=== PATIENT | male | born 1955 | race Caucasian/White ===

== ENCOUNTER 2018-12-20 20:51 | Outpatient (CLI) | payer BC | END 2018-12-20 20:52 | disposition critical access hospital (66) | LOC: EMS 20:51 | PROVIDERS: ATTEND Surgery | DX: S00.03XA Contusion of scalp, initial encounter (principal); S00.83XA Contusion of other part of head, initial encounter; W10.9XXA Fall (on) (from) unspecified stairs and steps, initial encounter; Y92.009 Unspecified place in unspecified non-institutional (private) residence as the place of occurrence of the external cause | CPT/HCPCS: A0425; A0429 ==

== ENCOUNTER 2018-12-20 21:05 | Emergency (ER) | payer BC ==
--- NOTE | 2018-12-20 22:17 | ED Physician Documentation ---
History of Present Illness - Stated complaint Stated Complaint: FALL DOWN STAIRS - Chief complaint Chief Complaint: General - History obtained from History obtained from: Patient - History of Present Illness Timing: Prior to arrival - Additonal information Additional information: Patient is a 63-year-old male with history of alcohol use presenting after accidental fall down approximately 3 stairs just prior to arrival. Patient admits to having multiple shots of liquor today, but denies recreational drugs. Patient reports history of borderline diabetes, but states that he does not take any oral medications regularly. Patient states that he actually tripped on the stairs and landed face first striking the front of his head, as well as the back Left side of his head and left arm resulting in multiple skin tears. Patient does not believe he lost consciousness and family confirms. Patient reports pain to the contusion of the left head only. He denies other headache, vision changes, epistaxis, intraoral trauma, neck pain, back pain, rib pain, chest pain, abdominal pain, or extremity pain. Patient denies other areas of bruising, abrasions, lacerations. Prior to this, patient was at his normal state of health without complaint. Tetanus unknown. No other improving or worsening factors to symptoms noted. Review of Systems Eyes: denies: Loss of vision Skin: reports: Abrasion (s), Laceration (s) PD PAST MEDICAL HISTORY - Past Medical History Past Medical History: Yes Cardiovascular: None Respiratory: None Neuro: None Endocrine/Autoimmune: None GI: None : None HEENT: None Psych: None Musculoskeletal: None Derm: None - Past Surgical History Past Surgical History: Yes Ortho: Other - Allergies Allergies/Adverse Reactions: Allergies Allergy/AdvReac Type Severity Reaction Status Date / Time No Known Drug Allergies Allergy Verified 12/20/18 21:13 - Social History Does the pt smoke?: No Smoking Status: Never smoker Does the pt drink ETOH?: Yes ETOH Use: Liquor Does the pt have substance abuse?: No - Immunizations Immunizations are current?: No Immunizations: TDAP >10years/unknown PD ED PE NORMAL - General General: Alert and oriented X 3, No acute distress, Well developed/nourished, Other (Smells of alcohol) - HEENT HEENT: PERRL (Gross visual acuity intact without nystagmus.), EOMI. No: Atraumatic (Approximately 4 inch x 4 inch area of erythema and abrasion to midline forehead extending into scalp and not involving periorbital space.Nearly tennis ball sized contusion without overlying skin abrasion or laceration to left occiput.No other facial bone tenderness or instability noted. No raccoon eyes, periorbital swelling or ecchymosis. No epistaxis or evidence of intraoral trauma.) - Neck Neck: No bony TTP - Cardiac Cardiac: RRR, No murmur - Respiratory Respiratory: No respiratory distress, Clear bilaterally - Abdomen Abdomen: Normal bowel sounds, Soft, Non tender, Non distended - Back Back: No spinal TTP - Derm Derm: Normal color, Warm and dry, No rash, Other (Skin changes as stated above, including several small punctate skin cares to dorsum of left forearm with no damage to underlying structures, no signs of infection, or other complication.) - Neuro Neuro: Alert and oriented X 3, No motor deficit, No sensory deficit - Psych Psych: Normal mood, Normal affect Results - Vitals Vitals: Vital Signs - 24 hr 12/20/18 21:10 Temperature 36.5 C Heart Rate 113 H Respiratory 20 Rate Blood Pressure 163/95 H O2 Saturation 96 Oxygen O2 Source Room air - EKG (time done) 2324 Rate: Rate (enter#) (102) Rhythm: Sinus tachycardia Intervals: Prolonged QT Other comments: Other comments (Multiple PVCs) - Labs Labs: Laboratory Tests 12/20/18 23:24 WBC 7.8 RBC 3.96 L Hgb 14.4 Hct 41.6 L MCV 105.1 H MCH 36.3 H MCHC 34.5 RDW 13.7 Plt Count 125 L MPV 6.8 L Neut # (Auto) 5.9 Lymph # (Auto) 1.4 L [place] # (Auto) 0.4 Eos # (Auto) 0.0 Baso # (Auto) 0.0 Absolute Nucleated RBC 0.00 Nucleated RBC % 0.0 PD MEDICAL DECISION MAKING - ED course Complexity details: reviewed results, re-evaluated patient, considered differential, d/w patient, d/w family, d/w senior solutions consultant ED course: Patient presenting after mechanical fall down several stairs and have significant concerns for possible head and cervical spine injury from this fall. Patient admits to chronic, heavy alcohol use. Patient reports minimal oral intake today, but multiple shots of vodka with last shot being approximately at 7 PM just before his fall. Patient has no complaints at this time. Do not find evidence that would indicate thoracic or lumbar spine injury, as well as have low suspicion for spinal cord injury. Additionally, have low suspicion for chest or abdominal trauma including rib fractures, as well as other extremity in juries.No evidence of facial trauma to indicate facial fracture except for abrasion overlying upper midline forehead extending into scalp.Patient is comfortable and does not require IV fluids or medications at this time. Patient still smells of alcohol and feel this could be contributing to his pain tolerance.Patient has multiple abrasions and skin tears which will not require repair, but tenderness updated.CT imaging of head and C-spine performed. C- spine imaging returned unremarkable, but CT of head found an acute 1.3 cm left- sided parietal subdural hematoma, as well as a small subarachnoid bleed of the frontal lobe and a small subdural bleed of the parietal lobe. No midline shift. Given these findings, felt appropriate to obtain a second IV, as well as lab work including coagulation studies and troponin, and EKG. Urinalysis and drug screening also obtained. Patient received Keppra and banana bag. Patient and family notified of results and recommendations and all are agreeable to transfer.[facility] contacted and ER physician excepting. Patient to transport by air. - Critical Care Time(min): 45 Time Includes: Direct patient care, Review records, Reassess patient, Document care, Coordinate care, Medical consult Departure - Departure Disposition: 02 Transfer Acute Care Hosp Clinical Impression: Subdural hematoma Condition: Critical
[2018-12-20] MEDS ORDERED: TETANUS/DIPHTHERIA/PERTUSSIS 0.5 ML SYRINGE IM ONE (22:28)
--- NOTE | 2018-12-20 23:11 | CT Report ---
Reason: fall down stairs, trauma to head Procedure Date: 12/20/2018 Accession Number: [id number] / [id number] Procedure: CT - CERVICAL SPINE WO CPT Code: FULL RESULT: EXAM: CT CERVICAL SPINE WITHOUT CONTRAST. DATE: 12/20/2018 10:53 PM. HISTORY: Head pain, fall down stairs, head trauma. COMPARISONS: None. TECHNIQUE: Thin-section axial images were acquired of the cervical spine without contrast. Post-processing: Coronal and sagittal reformats. Other: None. In accordance with CT protocol optimization, one or more of the following dose reduction techniques were utilized for this exam: automated exposure control, adjustment of mA and/or KV based on patient size, or use of iterative reconstructive technique. FINDINGS: Alignment: Mild levocurvature is noted at C6-C7. No spondylolisthesis. Bones: A lucency is seen at the right C4-C5 facet joint (image 43, series 8) which could represent an age-indeterminate fracture versus fragmentation from underlying facet arthropathy. No other potentially acute cervical spine fracture is seen. Interspace Levels/Facets: C1-C2: Mild degenerative changes are present anteriorly without canal cervical stenosis. C2-C3: Unremarkable. C3-C4: There is mild foraminal narrowing due to disk height loss. The spinal canal and neural foramina are patent. C4-C5: Right-sided facet arthropathy is present without spinal canal or foraminal stenosis. C5-C6: Right-sided facet arthropathy is present without spinal canal or foraminal stenosis. C6-C7: Mild right foraminal narrowing is present due to uncovertebral hypertrophy. The spinal canal and neural foramina are patent. C7-T1: Unremarkable. Musculature: There is mild diffuse fatty atrophy of the posterior paraspinous muscles. Other: The paravertebral and prevertebral soft tissues are unremarkable. The lung apices are clear. IMPRESSION: 1. Potential age-indeterminate fracture of the right C4-C5 facet joint versus fragmentation from underlying facet arthropathy. No accompanying findings to suggest spinal instability. 2. No other acute cervical spine fracture or malalignment. RADIA
--- NOTE | 2018-12-20 23:13 | CT Report ---
Reason: fall down stairs, trauma to head Procedure Date: 12/20/2018 Accession Number: [id number] / [id number] Procedure: CT - HEAD WO CPT Code: FULL RESULT: EXAM: CT HEAD WITHOUT CONTRAST. EXAM DATE: 12/20/2018 10:52 PM. CLINICAL HISTORY: Fall down stairs, trauma to head. COMPARISON: CERVICAL SPINE W/O 12/20/2018 10:42 PM. TECHNIQUE: Multiaxial CT images were obtained from the foramen magnum to the vertex. Reformats: Sagittal and coronal. IV contrast: None. In accordance with CT protocol optimization, one or more of the following dose reduction techniques were utilized for this exam: automated exposure control, adjustment of mA and/or KV based on patient size, or use of iterative reconstructive technique. FINDINGS: Parenchyma: No intraparenchymal hemorrhage. No evidence of mass, midline shift, or CT findings of acute infarction. Roland-white differentiation is distinct. Diffuse chronic microangiopathic white matter changes are evident. Extraaxial Spaces: An acute left parietal subdural hematoma measures up to 1.3 cm. A smaller acute right parietal subdural hematoma measures 2 mm (image 26, series 5). Trace acute right frontal subarachnoid hemorrhage is also noted (image 16, series 5). Ventricles: The ventricles and cortical sulci are mildly enlarged, consistent with age-related tissue loss. There is no midline shift or hydrocephalus. Sinuses and orbits: Imaged paranasal sinuses, orbits, and mastoids show no significant abnormality. Bones: A large left parietal scalp hematoma is present without an underlying calvarial fracture. Other: Trace intracranial atherosclerosis is noted. IMPRESSION: 1. Large left parietal scalp hematoma without calvarial fracture. 2. Evidence of coup injury consisting of a left parietal subdural hematoma measuring 1.3 cm. 3. Evidence of contrecoup injury with small volume right parietal subdural and right frontal subarachnoid hemorrhages. 4. No evidence of midline shift at this time. RADIA The critical result notification system was initiated by Dr. Adriana Cabezas at 11:04 PM on 12/20/2018. The above critical result findings were discussed with Dr. Rain by Dr. Adriana Cabezas at 11:08 PM on 12/20/2018.
[2018-12-20] MEDS ORDERED: levETIRAcetam INJ 1,000 MG in SODIUM CHLORIDE 0.9% 100ML 100 ML IV STA (23:17)
[2018-12-20] MEDS ORDERED: FOLIC ACID INJ 1 MG, THIAMINE INJ 100 MG, MAGNESIUM SULFATE 2 GM, MULTIVITAMIN 10 ML in... IV STA ×5 (23:18)
[2018-12-20] MEDS ORDERED: THIAMINE 100 MG/1 ML 2 ML MDV ONE (23:44)
[2018-12-20 23:50] LABS: BASOPHILS % (AUTO) 0.6 %; EOSINOPHILS % (AUTO) 0.4 %; HGB - HEMOGLOBIN 14.4 g/dL (14.0-18.0); LYMPHOCYTES # (AUTO) 1.4 10^3/uL (1.5-3.5); LYMPHOCYTES % (AUTO) 17.5 %; MEAN CORPUSCULAR HEMOGLOBIN 36.3 pg (27.0-31.0); MEAN CORPUSCULAR HGB CONC 34.5 g/dL (32.0-36.0); MEAN CORPUSCULAR VOLUME 105.1 fL (80.0-94.0); MEAN PLATELET VOLUME 6.8 fL (7.4-11.4); MONOCYTES # (AUTO) 0.4 10^3/uL (0.0-1.0); MONOCYTES % (AUTO) 5.4 %; NEUTROPHILS # (AUTO) 5.9 10^3/uL (1.5-6.6); NEUTROPHILS % (AUTO) 76.1 %; PLT - PLATELET COUNT 125 10^3/uL (130-450); RED BLOOD COUNT 3.96 10^6/uL (4.70-6.10); RED CELL DISTRIBUTION WIDTH 13.7 % (12.0-15.0); WHITE BLOOD COUNT 7.8 x10^3/uL (4.8-10.8)
[2018-12-20 23:52] LABS: INR 1.1 (0.8-1.2); PT - PROTHROMBIN TIME 12.6 secs (9.9-12.6)
[2018-12-20 23:59] LABS: PARTIAL THROMBOPLASTIN TIME 29.6 secs (24.9-33.3)
[2018-12-21] LABS: ACETAMINOPHEN < 10 ug/mL (10-30); ALBUMIN 3.5 g/dL (3.2-5.5); ALBUMIN/GLOBULIN RATIO 0.9 (1.0-2.2); ALKALINE PHOSPHATASE 129 IU/L (42-121); ALT ALANINE AMINOTRANSFERASE 81 IU/L (10-60); AST ASPARTATE AMINOTRANSFERASE 166 IU/L (10-42); BILIRUBIN,TOTAL 1.1 mg/dL (0.2-1.0); BUN - BLOOD UREA NITROGEN 9 mg/dL (6-20); CALCIUM 8.1 mg/dL (8.5-10.3); CARBON DIOXIDE - CO2 23 mmol/L (21-32); CHLORIDE 102 mmol/L (101-111); CREATININE 0.8 mg/dL (0.6-1.2); GFR - MDRD 98 (>89); GLUCOSE 176 mg/dL (70-100); LIPASE 38 U/L (22-51); SALICYLATE < 6.0 mg/dL; SODIUM 140 mmol/L (135-145); TOTAL PROTEIN 7.4 g/dL (6.7-8.2)
[2018-12-21 00:06] VITALS: BP 148/88
[2018-12-21 00:08] LABS: MUDS CUTOFF CONCENTRATIONS CUTOFF CONC BELOW:
[2018-12-21 00:09] LABS: BILIRUBIN,URINE NEGATIVE (NEGATIVE); GLUCOSE, URINE (UA) NEGATIVE (NEGATIVE); KETONES,URINE (UA) 15 mg/dL (NEGATIVE); LEUKOCYTE ESTERASE, URINE NEGATIVE (NEGATIVE); NITRITE,URINE NEGATIVE (NEGATIVE); OCCULT BLOOD,URINE NEGATIVE (NEGATIVE); PH,URINE 5.5 PH (5.0-7.5); PROTEIN,URINE NEGATIVE (NEGATIVE); UROBILINOGEN,URINE 0.2 (NORMAL) E.U./dL (NORMAL)
[2018-12-21 00:11] LABS: CLARITY,URINE CLEAR (CLEAR)
[2018-12-21 00:20] LABS: AMPHETAMINE SCREEN,URINE NEGATIVE (NEGATIVE); BENZODIAZEPINES SCREEN, URINE NEGATIVE (NEGATIVE); COCAINE SCREEN URINE NEGATIVE (NEGATIVE); METHADONE SCREEN, URINE NEGATIVE (NEGATIVE); METHAMPHETAMINES SCREEN, URINE NEGATIVE (NEGATIVE); OPIATE SCREEN, URINE NEGATIVE (NEGATIVE); OXYCODONE SCREEN, URINE NEGATIVE (NEGATIVE); PROPOXYPHENE SCREEN, URINE NEGATIVE (NEGATIVE); TRICYCLIC ANTIDEPRESSANT,URINE NEGATIVE (NEGATIVE)
== END 2018-12-21 00:43 | disposition short-term general hospital (02) ==
LOC: ED 21:05
DX: S06.5X0A Traumatic subdural hemorrhage without loss of consciousness, initial encounter (principal); S06.6X0A Traumatic subarachnoid hemorrhage without loss of consciousness, initial encounter; S51.812A Laceration without foreign body of left forearm, initial encounter; S50.812A Abrasion of left forearm, initial encounter; S00.81XA Abrasion of other part of head, initial encounter; S00.01XA Abrasion of scalp, initial encounter; S00.03XA Contusion of scalp, initial encounter; W10.9XXA Fall (on) (from) unspecified stairs and steps, initial encounter; Z23 Encounter for immunization; I49.3 Ventricular premature depolarization; I45.81 Long QT syndrome; F10.929 Alcohol use, unspecified with intoxication, unspecified
CPT/HCPCS: 36415; 70450; 72125; 80053; 80320; 80329; 81003; 83690; 84484; 85025; 85610; 85730; 86850; 86900; 86901; 90471; 90715; 93005; 96365; 96375; 99283; 99291; J3411; 80306; 80307; 81001; 87086; 99284

== ENCOUNTER 2019-11-24 13:29 | Outpatient (CLI) | payer BC | END 2019-11-24 13:30 | disposition critical access hospital (66) | LOC: EMS 13:29 | PROVIDERS: ATTEND Surgery | DX: R53.1 Weakness (principal); R60.0 Localized edema; R39.89 Other symptoms and signs involving the genitourinary system; W18.30XA Fall on same level, unspecified, initial encounter; Y92.009 Unspecified place in unspecified non-institutional (private) residence as the place of occurrence of the external cause | CPT/HCPCS: A0425; A0429 ==

== ENCOUNTER 2019-11-24 13:46 | Inpatient (IN) | payer BC ==
--- NOTE | 2019-11-24 14:02 | ED Physician Documentation ---
History of Present Illness - Stated complaint Stated Complaint: GLF - Chief complaint Chief Complaint: Back Pain - History obtained from History obtained from: Patient, Family PD PAST MEDICAL HISTORY - Past Medical History Cardiovascular: None Respiratory: None Neuro: None Endocrine/Autoimmune: None GI: None : None HEENT: None Psych: None Musculoskeletal: None Derm: None - Past Surgical History Past Surgical History: Yes Ortho: Other - Allergies Allergies/Adverse Reactions: Allergies Allergy/AdvReac Type Severity Reaction Status Date / Time No Known Drug Allergies Allergy Verified 12/20/18 21:13 - Social History Does the pt smoke?: No Smoking Status: Never smoker Does the pt drink ETOH?: Yes Does the pt have substance abuse?: No - Immunizations Immunizations are current?: No Immunizations: TDAP >10years/unknown Results - Vitals Vitals: Vital Signs - 24 hr 11/24/19 11/24/19 11/24/19 13:51 15:00 15:30 Temperature 36.6 C Heart Rate 128 H 119 H 126 H Heart Rate [ Brachial] Respiratory 22 Rate Blood Pressure 159/82 H 135/78 H 147/82 H Blood Pressure [Left Brachial artery] O2 Saturation 98 92 94 11/24/19 11/24/19 11/24/19 17:11 17:31 18:00 Temperature Heart Rate 136 H 87 Heart Rate [ 101 H Brachial] Respiratory 16 16 16 Rate Blood Pressure 115/91 H 132/102 H Blood Pressure 151/98 H [Left Brachial artery] O2 Saturation 94 97 94 Oxygen O2 Source Room air - Labs Labs: Laboratory Tests 11/24/19 11/24/19 11/24/19 14:38 14:38 14:38 WBC 8.7 RBC 3.30 L Hgb 11.9 L Hct 34.3 L MCV 103.9 H MCH 36.1 H MCHC 34.7 RDW 13.4 Plt Count 42 L MPV 11.3 Neut # (Auto) 6.9 H Lymph # (Auto) 1.1 L [place] # (Auto) 0.7 Eos # (Auto) 0.0 Baso # (Auto) 0.0 Absolute Nucleated RBC 0.02 Nucleated RBC % 0.2 VBG pH VBG pCO2 VBG pO2 VBG HCO3 VBG Total CO2 VBG O2 Saturation VBG Base Excess Sodium Potassium Chloride Carbon Dioxide Anion Gap BUN Creatinine Estimated GFR (MDRD) Glucose Lactic Acid 3.8 H* Calcium Total Bilirubin AST ALT Alkaline Phosphatase Troponin I High Sens 50.4 H* Total Protein Albumin Globulin Albumin/Globulin Ratio Urine Color Urine Clarity Urine pH Ur Specific [place] Urine Protein Urine Glucose (UA) Urine Ketones Urine Occult Blood Urine Nitrite Urine Bilirubin Urine Urobilinogen Ur Leukocyte Esterase Urine RBC Urine WBC Ur Squamous Epith Cells Urine Bacteria Ur Microscopic Review Urine Culture Comments Serum Ketones 11/24/19 11/24/19 11/24/19 14:38 15:22 18:00 WBC RBC Hgb Hct MCV MCH MCHC RDW Plt Count MPV Neut # (Auto) Lymph # (Auto) [place] # (Auto) Eos # (Auto) Baso # (Auto) Absolute Nucleated RBC Nucleated RBC % VBG pH 7.470 H VBG pCO2 32.9 L VBG pO2 45.8 VBG HCO3 23.4 VBG Total CO2 24.4 VBG O2 Saturation 85.4 H VBG Base Excess 0.4 Sodium 125 L Potassium 3.5 Chloride 90 L Carbon Dioxide 22 Anion Gap 13.0 BUN 49 H Creatinine 1.4 H Estimated GFR (MDRD) 51 L Glucose 468 H Lactic Acid Calcium 8.0 L Total Bilirubin 13.3 H AST 188 H ALT 100 H Alkaline Phosphatase 119 Troponin I High Sens Total Protein 7.4 Albumin 2.6 L Globulin 4.8 H Albumin/Globulin Ratio 0.5 L Urine Color DARK YELLOW Urine Clarity HAZY Urine pH 6.0 Ur Specific [place] <=1.005 Urine Protein TRACE Urine Glucose (UA) 500 H Urine Ketones 15 H Urine Occult Blood MODERATE H Urine Nitrite POSITIVE H Urine Bilirubin LARGE H Urine Urobilinogen 1 (NORMAL) Ur Leukocyte Esterase MODERATE H Urine RBC 6-10 H Urine WBC 11-25 H Ur Squamous Epith Cells MANY Squamous H Urine Bacteria Many H Ur Microscopic Review INDICATED Urine Culture Comments NOT INDICATED Serum Ketones NEGATIVE 11/24/19 11/24/19 18:03 18:03 WBC RBC Hgb Hct MCV MCH MCHC RDW Plt Count MPV Neut # (Auto) Lymph # (Auto) [place] # (Auto) Eos # (Auto) Baso # (Auto) Absolute Nucleated RBC Nucleated RBC % VBG pH VBG pCO2 VBG pO2 VBG HCO3 VBG Total CO2 VBG O2 Saturation VBG Base Excess Sodium Potassium Chloride Carbon Dioxide Anion Gap BUN Creatinine Estimated GFR (MDRD) Glucose Lactic Acid 3.3 H* Calcium Total Bilirubin AST ALT Alkaline Phosphatase Troponin I High Sens 40.4 H* Total Protein Albumin Globulin Albumin/Globulin Ratio Urine Color Urine Clarity Urine pH Ur Specific [place] Urine Protein Urine Glucose (UA) Urine Ketones Urine Occult Blood Urine Nitrite Urine Bilirubin Urine Urobilinogen Ur Leukocyte Esterase Urine RBC Urine WBC Ur Squamous Epith Cells Urine Bacteria Ur Microscopic Review Urine Culture Comments Serum Ketones Departure - Departure Disposition: 66 [facility] DC/Xfer Discharge Date/Time: 11/24/19 19:30
--- NOTE | 2019-11-24 14:22 | XRAY Report ---
Reason: fall, tachycardia Procedure Date: 11/24/2019 Accession Number: [id number] / [id number] Procedure: XR - Chest 1 View X-Ray CPT Code: 42384 Final Report FULL RESULT: EXAM: CHEST RADIOGRAPHY EXAM DATE: 11/24/2019 02:08 PM. CLINICAL HISTORY: Fall, tachycardia. COMPARISON: None. TECHNIQUE: Upright AP view. FINDINGS: Lungs/Pleura: No focal opacities evident. No peribronchial cuffing or interstitial abnormality. No pleural effusion. No pneumothorax. Mediastinum: Within exam limitations, the cardiomediastinal contour is normal. Other: None. IMPRESSION: Normal single view chest. RADIA
[2019-11-24 14:48] LABS: BASOPHILS % (AUTO) 0.2 %; EOSINOPHILS % (AUTO) 0.1 %; HGB - HEMOGLOBIN 11.9 g/dL (14.0-18.0); LYMPHOCYTES # (AUTO) 1.1 10^3/uL (1.5-3.5); LYMPHOCYTES % (AUTO) 12.2 %; MEAN CORPUSCULAR HEMOGLOBIN 36.1 pg (27.0-31.0); MEAN CORPUSCULAR HGB CONC 34.7 g/dL (32.0-36.0); MEAN CORPUSCULAR VOLUME 103.9 fL (80.0-94.0); MEAN PLATELET VOLUME 11.3 fL (7.4-11.4); MONOCYTES # (AUTO) 0.7 10^3/uL (0.0-1.0); MONOCYTES % (AUTO) 7.6 %; NEUTROPHILS # (AUTO) 6.9 10^3/uL (1.5-6.6); NEUTROPHILS % (AUTO) 78.9 %; PLT - PLATELET COUNT 42 10^3/uL (130-450); RED CELL DISTRIBUTION WIDTH 13.4 % (12.0-15.0); WHITE BLOOD COUNT 8.7 x10^3/uL (4.8-10.8)
[2019-11-24 14:52] LABS: KETONES, SERUM (ACETEST) NEGATIVE (NEGATIVE)
[2019-11-24 15:01] LABS: ALBUMIN 2.6 g/dL (3.2-5.5); ALBUMIN/GLOBULIN RATIO 0.5 (1.0-2.2); ALKALINE PHOSPHATASE 119 IU/L (42-121); ALT ALANINE AMINOTRANSFERASE 100 IU/L (10-60); AST ASPARTATE AMINOTRANSFERASE 188 IU/L (10-42); BILIRUBIN,TOTAL 13.3 mg/dL (0.2-1.0); BUN - BLOOD UREA NITROGEN 49 mg/dL (6-20); CARBON DIOXIDE - CO2 22 mmol/L (21-32); CHLORIDE 90 mmol/L (101-111); CREATININE 1.4 mg/dL (0.6-1.2); GLUCOSE 468 mg/dL (70-100); SODIUM 125 mmol/L (135-145); TOTAL PROTEIN 7.4 g/dL (6.7-8.2)
[2019-11-24] MEDS ORDERED: SODIUM CHLORIDE 0.9% 1,000 ML IV ONE ×2 (15:07→17:18)
[2019-11-24] MEDS ORDERED: IOVERSOL 320 100 ML VIAL IVP ONE ×2 (15:15→15:47)
[2019-11-24 15:33] LABS: VBG BASE EXCESS 0.4 mmol/L (-2 - +2); VBG PCO2 32.9 mmHg (41-51); VBG PH 7.47 (7.31-7.41); VBG PO2 45.8 mmHg (25-47); VBG TOTAL CO2 24.4 mmol/L (24-29)
--- NOTE | 2019-11-24 16:07 | CT Report ---
Reason: bili 13, abd pain, weakness Procedure Date: 11/24/2019 Accession Number: [id number] / [id number] Procedure: CT - Abdomen/Pelvis W CPT Code: Final Report FULL RESULT: EXAM: CT ABDOMEN AND PELVIS EXAM DATE: 11/24/2019 03:46 PM. CLINICAL HISTORY: Bili 13, abd pain, weakness. COMPARISONS: CHEST 1 VIEW 11/24/2019 1:52 PM. TECHNIQUE: Routine helical CT imaging was performed through the abdomen and pelvis. IV contrast: 100 cc OPTIRAY 320. Enteric contrast: No. Reconstructions: Coronal and sagittal. In accordance with CT protocol optimization, one or more of the following dose reduction techniques were utilized for this exam: automated exposure control, adjustment of mA and/or KV based on patient size, or use of iterative reconstructive technique. FINDINGS: Lung Bases: Minimal linear left basilar atelectasis. Liver: Normal size and contour. Diffuse hypodensity suggesting steatosis. No focal lesions are identified. Gallbladder/Bile Ducts: 12 mm dependent density suggesting a stone. No evidence of acute cholecystitis. No ductal dilatation. Spleen: Normal. Pancreas: Normal. Adrenal Glands: Normal. Kidneys: 2 mm upper pole right, 2 mm upper pole left, and 1 mm lower pole left renal calculi. No vel hydronephrosis. Small parapelvic cysts on the left. No ureteral calculus is identified. Symmetric perinephric fat stranding. Peritoneal Cavity/Bowel: Unopacified stomach and small bowel are nondistended. Normal appendix. Small amount of formed stool scattered in the colon. Mild descending colon diverticulosis. No focal pericolonic fat stranding. No lymphadenopathy. No pneumoperitoneum. Small volume perihepatic and bilateral paracolic gutter ascites. Pelvic Organs: Urinary bladder moderately distended. Prostate gland and seminal vesicles unremarkable. Vasculature: Mild paraesophageal varices. Mild perisplenic varices. Small recanalized umbilical vein. Mesenteric, splenic, portal, and hepatic veins are unremarkable. Bones: Mild diffuse idiopathic skeletal hyperostosis in the lower thoracic spine. Other: Tiny fluid-filled umbilical hernia. IMPRESSION: 1. Normal sized liver with evidence of diffuse steatosis. 2. Small volume ascites, mild paraesophageal and perisplenic varices, small recanalized umbilical vein. These findings are consistent with portal venous hypertension. 3. 12 mm probable gallstone. No evidence of acute cholecystitis. No biliary ductal dilatation. 4. Urinary bladder moderately distended. RADIA
[2019-11-24] MEDS ORDERED: INSULIN REGULAR HUMAN 100 UNIT/1 ML 10 ML MDV IVP STA (17:00)
[2019-11-24] MEDS ORDERED: POTASSIUM CHLOR 10 MEQ/100 ML 10 MEQ/100 ML BAG IV STA (17:01)
[2019-11-24 18:07] LABS: GLUCOSE, URINE (UA) 500 mg/dL (NEGATIVE); KETONES,URINE (UA) 15 mg/dL (NEGATIVE); LEUKOCYTE ESTERASE, URINE MODERATE (NEGATIVE); NITRITE,URINE POSITIVE (NEGATIVE); OCCULT BLOOD,URINE MODERATE (NEGATIVE); PROTEIN,URINE TRACE mg/dL (NEGATIVE); UROBILINOGEN,URINE 1 (NORMAL) E.U./dL (NORMAL)
[2019-11-24 18:16] LABS: BILIRUBIN,URINE LARGE (NEGATIVE); CLARITY,URINE HAZY (CLEAR); ICTOTEST,URINE POSITIVE
[2019-11-24 18:17] LABS: BACTERIA,URINE Many /HPF (None Seen); SQUAMOUS EPITHELIAL CELL,UR MANY Squamous (<= Few)
[2019-11-24] MEDS ORDERED: cefTRIAXone 2 GM in SODIUM CHLORIDE 0.9% MINIBAG 100 ML IV STA (18:28)
[2019-11-24] MEDS ORDERED: VANCOMYCIN INJ 1.5 GM in SODIUM CHLORIDE 0.9% 500 ML IV STA (18:39)
[2019-11-24] MEDS ORDERED: PIPERACILLIN/TAZOBACTAM 3.375 GM in SODIUM CHLORIDE 0.9% MINIBAG 100 ML IV STA (18:39)
[2019-11-24] MEDS ORDERED: ACETAMINOPHEN 325 MG TABLET PO PRN (18:46)
[2019-11-24] MEDS ORDERED: ONDANSETRON 4 MG/2 ML VIAL IVP PRN (18:46)
[2019-11-24] MEDS ORDERED: ONDANSETRON ODT 4 MG TABLET TL PRN (18:46)
[2019-11-24] MEDS ORDERED: oxyCODONE 5 MG TABLET PO PRN (18:46)
[2019-11-24] MEDS ORDERED: MAGNESIUM SULFATE 2 GRAM 2 GM/50 ML BAG IV ONE (19:00)
--- NOTE | 2019-11-24 19:30 | HISTORY & PHYSICAL EXAMINATION ---
Chief Complaint - Chief Complaint Chief Complaint: Weakness History of Present Illness - Admitted From Admitted From:: Home - History Obtained From Records Reviewed: Yes History obtained from: Patient, Spouse, ER Physician, EMR - History of Present Illness HPI Comment/Other: This is a 64-year-old male with a past medical history significant for alcohol abuse, hyperglycemia, insomnia who presents today complaining of worsening generalized weakness. He states that he fell this past Friday at home he was trying to get out of a couch. He denied any syncope or loss of consciousness. He does not recall hitting his head. He states he had difficulty getting off the floor after he fell but eventually was able to get up with assistance. On Friday his weakness had improved and he felt that he was doing well overall. The following day on Friday, his noticed that he had become weaker again but they attributed this to him ambulating more on Friday and to fatigue. Unfortunately, today he had another fall at home and his weakness continued to become more prominent. He reports neuropathy in his lower extremities been present for about 1 week. He also states he noticed edema in his lower extremities over the past 3 days. He has no fevers, chills, chest pain, dyspnea. He takes no medications at home except for occasional Aleve for pain and Benadryl on a nightly basis for his insomnia. He reports he drinks 2 glasses of wine and 3 glasses of vodka every night to help him sleep. He has been drinking on a daily basis for over 30 years. He reports he did quit about a year ago for 3 months after he had a fall where he hit his head and there was concern for subdural hematoma and he required to be admitted at [facility]. He states he quit alcohol for about 3 months after that but his insomnia became bothersome and so he returned to drinking. He has tried Ambien and Ativan in the past but this was many years ago. Reports no focal motor deficits or headaches. He reports no liver problems to his knowledge. He denies any family history of cirrhosis. He reports no Tylenol use, IV drug use, history of hepatitis, history of tattoos or transfusions. He also reports no diagnosis of diabetes. He states that many years ago he was prescribed metformin for elevated blood sugars while he was hospitalized but when he followed up with his primary care provider, he was told his A1c was 5.9% and so he stopped the metformin. He states he has been eating well these past few days. He has been drinking plenty of water. Denies any increased urinary frequency, dysuria, urgency, hematuria. He reports no difficulty urinating. He states he had a urethral replacement back in 2008 after he had urethral strictu res. He no longer sees a urologist. We did discuss goals of care and he would like to be a full code at the moment. 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 Recalls no other family history. Denies a history of cirrhosis. Living arrangement: At home Living Situation: With spouse/s.o. 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 He lives with his Kerry here on [facility]. He does not smoke and never smoked. Denies any illicit drug use. He drinks 5 alcoholic beverages a night for the past 30+ years. He normally drinks 2 gla sses of wine and 3 glasses of vodka to help with his insomnia. - Substance History Abuse Issues: Sleep Disorder Meds/Allgy - Allergies Allergies/Adverse Reactions: Allergies Allergy/AdvReac Type Severity Reaction Status Date / Time No Known Drug Allergies Allergy Verified 12/20/18 21:13 Review of Systems - Constitutional Constitutional: reports: Weakness. denies: Fever, Chills, Malaise, Poor appetite - Cardiovascular Cariovascular: reports: Edema. denies: Chest pain, Lightheadedness, Syncope, Exertional dyspnea, Decr. exercise tolerance - Respiratory Respiratory: denies: Cough, SOB at rest, SOB with exertion - Gastrointestinal Gastrointestinal: reports: Bloating. denies: Abdominal pain, Constipation, Diarrhea, Bloody stools, Nausea, Vomiting - Genitourinary Genitourinary: denies: Dysuria, Frequency, Urgency, Hematuria - Musculoskeletal Musculoskeletal: denies: Muscle pain, Muscle weakness - Integumentary Integumentary: reports: Rash, Other (Bruising) - Neurological Neurological: reports: General weakness, Dizziness, Numbness, Abnormal gait. denies: Focal weakness, Headache - Endocrine Endocrine: denies: Polyuria, Polydypsia - Hematologic/Lymphatic Hematologic/Lymphatic: reports: Bruising - All Other Systems All Other Systems: reports: Reviewed and negative Prior Level of Functionality: He normally ambulates on his own and is independent with his ADLs. Exam - Vital Signs Reviewed Vital Signs: Yes Vital Signs: Vital Signs x48h Temp Pulse Pulse Resp BP BP Pulse Ox 11/24/19 19:00 36.3 C L 74 16 103/70 94 11/24/19 18:00 101 H 16 151/98 H 94 11/24/19 17:31 87 16 132/102 H 97 11/24/19 17:11 136 H 16 115/91 H 94 11/24/19 15:30 126 H 147/82 H 94 11/24/19 15:00 119 H 135/78 H 92 11/24/19 13:51 36.6 C 128 H 22 159/82 H 98 - Physical Exam General Appearance: positive: No acute distress, Alert Eyes Bilateral: positive: Normal inspection, No lid inflammation, Other (Scleral icterus). negative: No scleral icterus ENT: positive: ENT inspection nml Neck: positive: Nml inspection Respiratory: positive: No respiratory distress. negative: Wheezes, Rales, Rhonchi Cardiovascular: positive: Regular rate & rhythm, No murmur, Tachycardia. negative: Irregularly irregular, Bradycardia, Systolic murmur, Diastolic murmur Abdomen: positive: Non-tender, Nml bowel sounds, Other (Distended abdomen. No tenderness.). negative: No distention, Tenderness, Guarding, Rebound Skin: positive: Warm, Dry, Other (Purpura noted in his bilateral feet. He has an Ecchymotic area 3 x 4 cm over the left deltoid. There is also an ecchymotic area approximately 8 x 5 cm inferior to the left flank.) Extremities: positive: Non-tender, Full ROM, Pedal edema (+2 to +3 pitting edema in his bilateral lower extremities up to the knee.) Neurologic/Psychiatric: positive: Oriented x3, Motor nml. negative: Disoriented to person, Disoriented to place, Disoriented to time, Facial droop, Slurred/abnml speech Conclusion/Plan - Problem List (1) Alcoholic hepatitis Conclusion/Plan: His LFTs are elevated with a greater AST to ALT ratio. His total bilirubin is also elevated at 13.3 which is new compared to labs from 1 year ago although at that time his AST and ALT were elevated. Suspect his alcoholic hepatitis given his daily alcohol use. We will continue him on empiric ceftriaxone IV until infection is ruled out. We will check a PT and INR as he may benefit from prednisone if his Maddrey's discriminant function is greater than 32 although we will need to rule out active infection and chronic hepatitis infection. We will also check a hepatitis panel. Trend his LFTs. Avoid acetaminophen or hepatotoxic medications. Discussed extensively with the patient regarding the importance of alcohol cessation. Qualifiers: Ascites presence: with ascites Qualified Code(s): K70.11 - Alcoholic hepatitis with ascites (2) Liver cirrhosis Conclusion/Plan: His liver on CT does not appear cirrhotic although there is concern for steatosis and esophageal varices. Suspect this is likely alcohol related given his daily use. Will obtain right upper quadrant ultrasound for better evaluation of the liver. We will also check MAYA, ferritin, smooth muscle antibody to evaluate for other potential etiologies of cirrhosis. We will also check an ammonia level. Will eventually need to be on propanolol and appropriate diuretics given there is evidence of ascites on CT. Qualifiers: Hepatic cirrhosis type: alcoholic cirrhosis Ascites presence: with ascites Qualified Code(s): K70.31 - Alcoholic cirrhosis of liver with ascites (3) Type 2 diabetes mellitus with hyperglycemia Conclusion/Plan: He denies a history of diabetes in the past but he was on metformin for a brief period of time. His blood close is now elevated at 468. No evidence of DKA. He has been started on Lantus this evening and sliding scale. We will check an A1c. Will consult nutrition and assistant health educator. (4) Alcohol abuse Conclusion/Plan: To monitor for alcohol withdrawal given his heavy alcohol use. We will start him on a banana bag. If it is felt that he is becoming more hypervolemic, we will switch him to oral thiamine and folic acid. DT precautions. CIWA protocol. Social work consult to assist with alcohol cessation. I discussed extensively the patient regarding the importance of quitting alcohol given the concern for liver cirrhosis. (5) Thrombocytopenia Conclusion/Plan: His platelets are low at 42 and they were 125 approximately 1 year ago. Suspect secondary to liver cirrhosis. No evidence of significant bleeding at this time. Will use SCDs for DVT prophylaxis. No chemical DVT prophylaxis given thrombocytopenia. No indication for transfusion at the moment. (6) Elevated troponin Conclusion/Plan: +His troponin is elevated in the 50s but this decreased to 40s on recheck. He reports no chest pain and EKG does not suggest ischemia. Suspect this is likely demand ischemia. We will continue to trend his troponin and monitor him on telemetry. Will obtain echocardiogram in the morning. (7) Acute kidney injury Conclusion/Plan: Creatinine is elevated at 1.4 compared to his baseline of 0.8. His BUN is also elevated in the 40s. Suspect this is prerenal injury secondary to dehydration. We will treat him with IV fluids and monitor his renal function and urine output. If it does not improve with fluids, this may potentially be hepatorenal syndrome and will check a urine sodium as he may benefit from albumin and octreotide. (8) Lactic acidosis Conclusion/Plan: His lactic acid is elevated at 3.8 and this improved to 3.3 with fluids. No obvious signs of infection at this moment and he appears to be perfusing given he is hypertensive. This may be elevated due to decreased hepatic clearance or thiamine deficiency. We will continue to trend his lactic acid and continue with IV fluids for the time being. Continue with banana bag. (9) Hyponatremia Conclusion/Plan: He does appear hypervolemic on exam given the lower extremity edema but his oral mucosa appears dry. His sodium is low at 125 but his blood sugars also elevated at 468. He is already received 2 L of IV fluids the emergency department and therefore we will recheck a sodium this evening. If it is improving, then suspects is hypovolemic hyponatremia and we will continue him on maintenance IV fluids. If his sodium declines, suspect this may be secondary to his cirrhosis and he will need to be diuresed and fluid restricted. (10) Fall from chair, initial encounter Conclusion/Plan: Fall appears to be mechanical in nature. Suspect this might be due to his alcohol consumption as well as his lower extremity edema. We will consult physical therapy for evaluation. He has no focal motor deficits on exam and therefore we will not obtain a CT of the head. (11) Bladder distension Conclusion/Plan: There is evidence of moderate bladder distention on the CT of the abdomen and pelvis. His urinalysis was a dirty catch unfortunately but he does not have symptoms of dysuria, urgency, hematuria. There is concern he may be retaining urine given these findings. We discussed that he might need straight catheterization but he would prefer to hold off given his urethral replacement in the past. At this time, we will encourage him to urinate we will BladderScan him every 6 hours. Unfortunate bladder scan may not be accurate given he does have some abdominal ascites but if there is concern for a large amount of urine in the bladder, we will need to straight catheterize him if he is unable to urinate. Will consider starting him on Flomax if he is unable to urinate (12) Insomnia Conclusion/Plan: He reports a longstanding history of insomnia and that is why he drinks alcohol but suspect this may potentially be alcohol induced insomnia. Will use Benadryl as needed as that is what he takes at home. We will provide him with appropriate sleep hygiene techniques. - Lab Results Lab results reviewed: Yes Fish Bones: 11/24/19 14:38 11/24/19 21:37 - Diagnostic Imaging Results Diagnostic Imaging Results: positive: Final report reviewed - EKG Results EKG Interpreted Independently: Yes EKG Comparison: No prior EKG EKG Findings: Sinus tachycardia without ischemic changes. Core Measures - Anticipated LOS I expect patient to be DC'd or transferred within 96 hours.: Yes - Issues Hospital Issues and Management Plan: 64-year-old male with alcohol abuse presents with hyperglycemia and alcoholic hepatitis with concern for cirrhosis. Requires treatment with insulin and work- up of his cirrhosis. - DVT/VTE - Prophylaxis VTE/DVT Device ordered at admit?: Yes VTE/DVT Prophylaxis med ordered at admit?: No Not Ordered - Medical Reason: Contraindicated
[2019-11-24] MEDS ORDERED: diphenhydrAMINE 25 MG CAPSULE PO PRN (20:57)
[2019-11-24] MEDS ORDERED: INSULIN GLARGINE 300 UNIT/3 ML PEN SUBQ SCH (21:00)
[2019-11-24] MEDS: PANTOPRAZOLE 40 MG TABLET PO SCH (21:36)
[2019-11-24] MEDS: SODIUM CHLORIDE 0.9% 1,000 ML IV SCH (21:37)
[2019-11-24] MEDS: INSULIN REGULAR HUMAN 300 UNIT/3 ML VIAL SUBQ SCH (21:38)
[2019-11-24 22:06] LABS: INR 2.1 (0.8-1.2); PT - PROTHROMBIN TIME 23.3 secs (9.9-12.6)
[2019-11-24 22:09] LABS: CALCIUM 7.5 mg/dL (8.5-10.3); CREATININE 1.3 mg/dL (0.6-1.2)
[2019-11-24] MEDS ORDERED: POTASSIUM CHLORIDE 20 MEQ TABLET PO ONE (22:11)
[2019-11-25] MEDS: INSULIN REGULAR HUMAN 300 UNIT/3 ML VIAL SUBQ SCH ×3 (00:50→12:09)
--- NOTE | 2019-11-25 01:31 | Ultrasound Report ---
Reason: abnormal lft Procedure Date: 11/24/2019 Accession Number: [id number] / [id number] Procedure: US - Abdomen Complete CPT Code: Final Report FULL RESULT: EXAM: ABDOMEN ULTRASOUND EXAM DATE: 11/24/2019 11:49 PM. CLINICAL HISTORY: Abnormal lft. COMPARISON: ABDOMEN/PELVIS W/ 11/24/2019 3:45 PM. TECHNIQUE: Real-time scanning was performed with static images obtained. FINDINGS: Liver: Liver is enlarged and echogenic, with a nodular contour, compatible with cirrhosis. 20.1 cm. Main portal vein flow: Not visualized, secondary to difficulty with penetration. Recanalized umbilical vein noted. Gallbladder: Cholelithiasis. No wall thickening or pericholecystic fluid. No localized tenderness. Biliary System: Common bile duct measures 5 mm. No intrahepatic or extrahepatic ductal dilatation. Pancreas: Obscured by bowel gas. Kidneys: Right: 13 cm longitudinally. Cortical cyst. No hydronephrosis or solid renal mass appreciated. Left: 12.5 cm longitudinally. Cortical and parapelvic cysts noted. No hydronephrosis or solid renal mass appreciated. Spleen: 15.4 cm. Splenomegaly. Aorta and Inferior Vena Cava: The visualized mid abdominal aorta is normal in caliber. The inferior vena cava and remainder of the aorta were not visualized due to overlying bowel gas. Other: Small volume of ascites. IMPRESSION: Cirrhotic liver, with evidence of portal hypertension. Cholelithiasis. Incidental renal cysts. RADIA
[2019-11-25] MEDS: SODIUM CHLORIDE FLUSH 0.9% 10 ML SYRINGE IVP SCH ×4 (02:51→23:55)
[2019-11-25] MEDS ORDERED: MIN OIL/DIMETHICON/COCONUT OIL 92 GM TUBE TOP PRN (02:56)
[2019-11-25 03:06] LABS: MUDS CUTOFF CONCENTRATIONS CUTOFF CONC BELOW:
[2019-11-25 03:18] LABS: AMPHETAMINE SCREEN,URINE NEGATIVE (NEGATIVE); BENZODIAZEPINES SCREEN, URINE NEGATIVE (NEGATIVE); COCAINE SCREEN URINE NEGATIVE (NEGATIVE); METHADONE SCREEN, URINE NEGATIVE (NEGATIVE); METHAMPHETAMINES SCREEN, URINE NEGATIVE (NEGATIVE); OPIATE SCREEN, URINE NEGATIVE (NEGATIVE); OXYCODONE SCREEN, URINE NEGATIVE (NEGATIVE); PROPOXYPHENE SCREEN, URINE NEGATIVE (NEGATIVE); TRICYCLIC ANTIDEPRESSANT,URINE NEGATIVE (NEGATIVE)
[2019-11-25 05:24] LABS: BASOPHILS % (AUTO) 0.2 %; EOSINOPHILS # (AUTO) 0.2 10^3/uL (0.0-0.7); HGB - HEMOGLOBIN 10.8 g/dL (14.0-18.0); LYMPHOCYTES # (AUTO) 1.7 10^3/uL (1.5-3.5); LYMPHOCYTES % (AUTO) 25.2 %; MEAN CORPUSCULAR HEMOGLOBIN 34.8 pg (27.0-31.0); MEAN CORPUSCULAR HGB CONC 34.2 g/dL (32.0-36.0); MEAN CORPUSCULAR VOLUME 101.9 fL (80.0-94.0); MEAN PLATELET VOLUME 10.9 fL (7.4-11.4); MONOCYTES # (AUTO) 0.6 10^3/uL (0.0-1.0); MONOCYTES % (AUTO) 8.3 %; NEUTROPHILS # (AUTO) 4.1 10^3/uL (1.5-6.6); NEUTROPHILS % (AUTO) 62.7 %; PLT - PLATELET COUNT 45 10^3/uL (130-450); RED CELL DISTRIBUTION WIDTH 13.2 % (12.0-15.0); WHITE BLOOD COUNT 6.6 x10^3/uL (4.8-10.8)
[2019-11-25 05:47] LABS: ALBUMIN 2.2 g/dL (3.2-5.5); ALKALINE PHOSPHATASE 102 IU/L (42-121); ALT ALANINE AMINOTRANSFERASE 91 IU/L (10-60); AST ASPARTATE AMINOTRANSFERASE 180 IU/L (10-42); BILIRUBIN,DIRECT 7.4 mg/dL (0.1-0.5); BILIRUBIN,TOTAL 11.7 mg/dL (0.2-1.0); BUN - BLOOD UREA NITROGEN 39 mg/dL (6-20); CALCIUM 7.6 mg/dL (8.5-10.3); CARBON DIOXIDE - CO2 26 mmol/L (21-32); CHLORIDE 98 mmol/L (101-111); CHOLESTEROL 156 mg/dL; GLUCOSE 117 mg/dL (70-100); HDL CHOLESTEROL 6 mg/dL; LDL CHOLESTEROL,CALCULATED 118 mg/dL; LDL/HDL RATIO 19.7 (<3.6); MAGNESIUM 2.6 mg/dL (1.7-2.8); SODIUM 133 mmol/L (135-145); TOTAL PROTEIN 6.3 g/dL (6.7-8.2); VLDL CHOLESTEROL 32 mg/dL
[2019-11-25 05:51] LABS: PHOSPHORUS < 1.0 mg/dL (2.5-4.6)
[2019-11-25] MEDS ORDERED: POTASSIUM CHLORIDE 20 MEQ TABLET PO ONE (06:00)
[2019-11-25] MEDS ORDERED: NEUTRA-PHOS 250 MG TABLET PO SCH (06:00)
[2019-11-25] MEDS: PANTOPRAZOLE 40 MG TABLET PO SCH (06:06)
[2019-11-25 06:09] LABS: HB2 TOTAL 10.9 g/dL; HEMOGLOBIN A1C 0.62 g/dL; HEMOGLOBIN A1C % 7.4 % (4.6-6.2)
[2019-11-25] MEDS ORDERED: VANCOMYCIN INJ 1.25 GM in SODIUM CHLORIDE 0.9% 250 ML IV SCH (07:00)
[2019-11-25] MEDS ORDERED: POTASSIUM PHOSPHATE 21 MMOL in SODIUM CHLORIDE 0.9% 250 ML IV ONE (08:00)
[2019-11-25] MEDS ORDERED: VANCOMYCIN PER PHARMACY 100 GM in SODIUM CHLORIDE 0.9% 250 ML IV SCH (08:00)
[2019-11-25] MEDS ORDERED: MULTIVITAMIN 10 ML, THIAMINE INJ 100 MG, FOLIC ACID INJ 1 MG in SODIUM CHLORIDE 0.9% 1,... IV SCH (09:00)
--- NOTE | 2019-11-25 10:17 | PROVIDER PROGRESS NOTE ---
Subjective - Prog Note Date Prog Note Date: 11/25/19 Prog Note Time: 10:15 - Subjective Pt reports feeling: No change Subjective: Patient feels about the same. He was able to sleep last night. His appetite is good. Current Medications - Current Medications Current Medications: Active Medications Acetaminophen (Tylenol) 650 mg PO Q4HR PRN PRN Reason: Pain 1 to 4 Diphenhydramine HCl (Benadryl) 25 mg PO QPM PRN PRN Reason: Insomnia Ceftriaxone Sodium 1 gm/ (Sodium Chloride) 100 mls @ 200 mls/hr IV Q24H RAMAKRISHNA Sodium Chloride (Normal Saline 0.9%) 1,000 mls @ 100 mls/hr IV .Q10H RAMAKRISHNA Stop: 11/25/19 14:59 Last Infusion: 11/25/19 06:43 Dose: 100 mls/hr Multivitamins 10 ml/ Thiamine HCl 100 mg/ Folic Acid 1 mg/Sodium Chloride 1,0 11.2 mls @ 100 mls/hr IV DAILY [facility] Last Admin: 11/25/19 10:12 Dose: 100 mls/hr Potassium Phosphate 21 mmol/ (Sodium Chloride) 257 mls @ 42.833 mls/hr IV ONCE ONE Stop: 11/25/19 13:59 Last Admin: 11/25/19 10:15 Dose: 42.833 mls/hr Insulin Glargine (Lantus Solostar) 12 unit SUBQ QPM RAMAKRISHNA Insulin Human Regular (Humulin R) 1 - 9 unit SUBQ Q6HR RAMAKRISHNA; Protocol Last Admin: 11/25/19 05:31 Dose: Not Given Mineral Oil (Cavilon) 1 applic TOP PRN PRN PRN Reason: Skin Care Ondansetron HCl (Zofran Inj) 4 mg IVP Q6HR PRN PRN Reason: Nausea / Vomiting Ondansetron HCl (Zofran Odt) 4 mg TL Q6HR PRN PRN Reason: Nausea / Vomiting Oxycodone HCl (Roxicodone) 5 mg PO Q4HR PRN PRN Reason: Pain 5 to 7 Pantoprazole Sodium (Protonix) 40 mg PO QDAC RAMAKRISHNA Last Admin: 11/25/19 06:06 Dose: 40 mg Sodium Chloride (Normal Saline Flush 0.9%) 10 ml IVP PRN PRN PRN Reason: NEEDED PER PROVIDER ORDERS Sodium Chloride (Normal Saline Flush 0.9%) 10 ml IVP 0100,0900,1700 RAMAKRISHNA Last Admin: 11/25/19 10:13 Dose: Not Given Objective - Vital Signs/Intake & Output Reviewed Vital Signs: Yes Vital Signs: Vital Signs x48h Temp Pulse Resp BP Pulse Ox 11/25/19 07:59 37 C 103 H 20 124/65 94 11/25/19 05:30 36.6 C 96 18 122/49 L 95 Intake & Output: Intake & Output 11/22/19 11/23/19 11/24/19 11/25/19 23:59 23:59 23:59 23:59 Intake Total 2200 1820 Output Total 275 Balance 2200 1545 - Objective General Appearance: positive: No acute distress, Alert Eyes Bilateral: positive: PERRL, EOMI. negative: No scleral icterus Eyes: OU Scleral icterus ENT: positive: No signs of dehydration Neck: positive: Nml inspection, Trachea midline Respiratory: positive: No respiratory distress, Breath sounds nml Cardiovascular: positive: Regular rate & rhythm, No murmur, No gallop Peripheral Pulses: 2+ Radial (R), 2+ Radial (L), 2+ Dorsalis pedis (R), 2+ Dorsalis pedis (L) Abdomen: positive: Non-tender, Hepatomegaly, Splenomegaly. negative: No distention Back: positive: Nml inspection Skin: positive: Warm, Dry, Other (Jaundice) Extremities: positive: Full ROM, Pedal edema. negative: Calf tenderness Neurologic/Psychiatric: positive: Oriented x3 - Lab Results Fish Bones: 11/25/19 05:05 11/25/19 12:54 Other Labs: Lab Results x24hrs 11/25/19 11/25/19 11/25/19 Range/Units 05:05 05:05 05:05 WBC (4.8-10.8) x10^3/uL RBC (4.70-6.10) 10^6/uL Hgb (14.0-18.0) g/dL Hct (42.0-52.0) % MCV (80.0-94.0) fL MCH (27.0-31.0) pg MCHC (32.0-36.0) g/dL RDW (12.0-15.0) % Plt Count (130-450) 10^3/uL MPV (7.4-11.4) fL Neut # (Auto) (1.5-6.6) 10^3/uL Lymph # (Auto) (1.5-3.5) 10^3/uL Bladen # (Auto) (0.0-1.0) 10^3/uL Eos # (Auto) (0.0-0.7) 10^3/uL Baso # (Auto) (0.0-0.1) 10^3/uL Absolute Nucleated RBC x10^3/uL Nucleated RBC % /100WBC PT (9.9-12.6) secs INR (0.8-1.2) VBG pH (7.31-7.41) VBG pCO2 (41-51) mmHg VBG pO2 (25-47) mmHg VBG HCO3 (23-28) mmol/L VBG Total CO2 (24-29) mmol/L VBG O2 Saturation (60-80) % VBG Base Excess (-2 - +2) mmol/L Sodium 133 L (135-145) mmol/L Potassium 3.0 L (3.5-5.0) mmol/L Chloride 98 L (101-111) mmol/L Carbon Dioxide 26 (21-32) mmol/L Anion Gap 9.0 (6-13) BUN 39 H (6-20) mg/dL Creatinine 1.0 (0.6-1.2) mg/dL Estimated GFR (MDRD) 75 L (>89) Glucose 117 H (70-100) mg/dL Glycated Hemoglobin (4.6-6.2) % Estim Average Glucose (70-100) Lactic Acid 1.7 (0.5-2.2) mmol/L Calcium 7.6 L (8.5-10.3) mg/dL Phosphorus < 1.0 L* (2.5-4.6) mg/dL Magnesium 2.6 (1.7-2.8) mg/dL Ferritin (23.9-336.2) ng/mL Total Bilirubin 11.7 H (0.2-1.0) mg/dL Direct Bilirubin 7.4 H (0.1-0.5) mg/dL AST 180 H (10-42) IU/L ALT 91 H (10-60) IU/L Alkaline Phosphatase 102 (42-121) IU/L Ammonia (7-35) umol/L Total Creatine Kinase (22-269) IU/L Troponin I High Sens 42.8 H* (2.3-19.7) ng/L Total Protein 6.3 L (6.7-8.2) g/dL Albumin 2.2 L (3.2-5.5) g/dL Globulin 4.1 (2.1-4.2) g/dL Albumin/Globulin Ratio (1.0-2.2) Triglycerides 158 H ( - 149) mg/dL Cholesterol 156 ( - 199) mg/dL LDL Cholesterol, Calc 118 ( - 129) mg/dL VLDL Cholesterol 32 mg/dL HDL Cholesterol 6 L (60 - ) mg/dL LDL/HDL Ratio 19.7 (<3.6) Cholesterol/HDL Ratio 26.0 (<5.0) Urine Color Urine Clarity (CLEAR) Urine pH (5.0-7.5) PH Ur Specific Sumner (1.002-1.030) Urine Protein (NEGATIVE) mg/dL Urine Glucose (UA) (NEGATIVE) mg/dL Urine Ketones (NEGATIVE) mg/dL Urine Occult Blood (NEGATIVE) Urine Nitrite (NEGATIVE) Urine Bilirubin (NEGATIVE) Urine Urobilinogen (NORMAL) E.U./dL Ur Leukocyte Esterase (NEGATIVE) Urine RBC (0-5) /HPF Urine WBC (0-3) /HPF Ur Squamous Epith Cells (<= Few) Urine Bacteria (None Seen) /HPF Ur Microscopic Review Urine Culture Comments Urine Opiates Screen (NEGATIVE) Ur Oxycodone Screen (NEGATIVE) Urine Methadone Screen (NEGATIVE) Ur Propoxyphene Screen (NEGATIVE) Ur Barbiturates Screen (NEGATIVE) Ur Tricyclics Screen (NEGATIVE) Ur Phencyclidine Scrn (NEGATIVE) Ur Amphetamine Screen (NEGATIVE) U Methamphetamines Scrn (NEGATIVE) U Benzodiazepines Scrn (NEGATIVE) Urine Cocaine Screen (NEGATIVE) U Cannabinoids Screen (NEGATIVE) Ethyl Alcohol mg/dL Serum Ketones (NEGATIVE) 11/25/19 11/25/19 11/25/19 Range/Units 05:05 05:05 05:05 WBC 6.6 (4.8-10.8) x10^3/uL RBC 3.10 L (4.70-6.10) 10^6/uL Hgb 10.8 L (14.0-18.0) g/dL Hct 31.6 L (42.0-52.0) % MCV 101.9 H (80.0-94.0) fL MCH 34.8 H (27.0-31.0) pg MCHC 34.2 (32.0-36.0) g/dL RDW 13.2 (12.0-15.0) % Plt Count 45 L (130-450) 10^3/uL MPV 10.9 (7.4-11.4) fL Neut # (Auto) 4.1 (1.5-6.6) 10^3/uL Lymph # (Auto) 1.7 (1.5-3.5) 10^3/uL Bladen # (Auto) 0.6 (0.0-1.0) 10^3/uL Eos # (Auto) 0.2 (0.0-0.7) 10^3/uL Baso # (Auto) 0.0 (0.0-0.1) 10^3/uL Absolute Nucleated RBC 0.04 x10^3/uL Nucleated RBC % 0.6 /100WBC PT (9.9-12.6) secs INR (0.8-1.2) VBG pH (7.31-7.41) VBG pCO2 (41-51) mmHg VBG pO2 (25-47) mmHg VBG HCO3 (23-28) mmol/L VBG Total CO2 (24-29) mmol/L VBG O2 Saturation (60-80) % VBG Base Excess (-2 - +2) mmol/L Sodium (135-145) mmol/L Potassium (3.5-5.0) mmol/L Chloride (101-111) mmol/L Carbon Dioxide (21-32) mmol/L Anion Gap (6-13) BUN (6-20) mg/dL Creatinine (0.6-1.2) mg/dL Estimated GFR (MDRD) (>89) Glucose (70-100) mg/dL Glycated Hemoglobin 7.4 H (4.6-6.2) % Estim Average Glucose 166 H (70-100) Lactic Acid (0.5-2.2) mmol/L Calcium (8.5-10.3) mg/dL Phosphorus (2.5-4.6) mg/dL Magnesium (1.7-2.8) mg/dL Ferritin 1816.0 H (23.9-336.2) ng/mL Total Bilirubin (0.2-1.0) mg/dL Direct Bilirubin (0.1-0.5) mg/dL AST (10-42) IU/L ALT (10-60) IU/L Alkaline Phosphatase (42-121) IU/L Ammonia (7-35) umol/L Total Creatine Kinase (22-269) IU/L Troponin I High Sens (2.3-19.7) ng/L Total Protein (6.7-8.2) g/dL Albumin (3.2-5.5) g/dL Globulin (2.1-4.2) g/dL Albumin/Globulin Ratio (1.0-2.2) Triglycerides ( - 149) mg/dL Cholesterol ( - 199) mg/dL LDL Cholesterol, Calc ( - 129) mg/dL VLDL Cholesterol mg/dL HDL Cholesterol (60 - ) mg/dL LDL/HDL Ratio (<3.6) Cholesterol/HDL Ratio (<5.0) Urine Color Urine Clarity (CLEAR) Urine pH (5.0-7.5) PH Ur Specific Sumner (1.002-1.030) Urine Protein (NEGATIVE) mg/dL Urine Glucose (UA) (NEGATIVE) mg/dL Urine Ketones (NEGATIVE) mg/dL Urine Occult Blood (NEGATIVE) Urine Nitrite (NEGATIVE) Urine Bilirubin (NEGATIVE) Urine Urobilinogen (NORMAL) E.U./dL Ur Leukocyte Esterase (NEGATIVE) Urine RBC (0-5) /HPF Urine WBC (0-3) /HPF Ur Squamous Epith Cells (<= Few) Urine Bacteria (None Seen) /HPF Ur Microscopic Review Urine Culture Comments Urine Opiates Screen (NEGATIVE) Ur Oxycodone Screen (NEGATIVE) Urine Methadone Screen (NEGATIVE) Ur Propoxyphene Screen (NEGATIVE) Ur Barbiturates Screen (NEGATIVE) Ur Tricyclics Screen (NEGATIVE) Ur Phencyclidine Scrn (NEGATIVE) Ur Amphetamine Screen (NEGATIVE) U Methamphetamines Scrn (NEGATIVE) U Benzodiazepines Scrn (NEGATIVE) Urine Cocaine Screen (NEGATIVE) U Cannabinoids Screen (NEGATIVE) Ethyl Alcohol mg/dL Serum Ketones (NEGATIVE) 11/25/19 11/25/19 11/24/19 Range/Units 02:40 00:55 21:37 WBC (4.8-10.8) x10^3/uL RBC (4.70-6.10) 10^6/uL Hgb (14.0-18.0) g/dL Hct (42.0-52.0) % MCV (80.0-94.0) fL MCH (27.0-31.0) pg MCHC (32.0-36.0) g/dL RDW (12.0-15.0) % Plt Count (130-450) 10^3/uL MPV (7.4-11.4) fL Neut # (Auto) (1.5-6.6) 10^3/uL Lymph # (Auto) (1.5-3.5) 10^3/uL Bladen # (Auto) (0.0-1.0) 10^3/uL Eos # (Auto) (0.0-0.7) 10^3/uL Baso # (Auto) (0.0-0.1) 10^3/uL Absolute Nucleated RBC x10^3/uL Nucleated RBC % /100WBC PT (9.9-12.6) secs INR (0.8-1.2) VBG pH (7.31-7.41) VBG pCO2 (41-51) mmHg VBG pO2 (25-47) mmHg VBG HCO3 (23-28) mmol/L VBG Total CO2 (24-29) mmol/L VBG O2 Saturation (60-80) % VBG Base Excess (-2 - +2) mmol/L Sodium (135-145) mmol/L Potassium (3.5-5.0) mmol/L Chloride (101-111) mmol/L Carbon Dioxide (21-32) mmol/L Anion Gap (6-13) BUN (6-20) mg/dL Creatinine (0.6-1.2) mg/dL Estimated GFR (MDRD) (>89) Glucose (70-100) mg/dL Glycated Hemoglobin (4.6-6.2) % Estim Average Glucose (70-100) Lactic Acid 2.7 H 3.2 H* (0.5-2.2) mmol/L Calcium (8.5-10.3) mg/dL Phosphorus (2.5-4.6) mg/dL Magnesium (1.7-2.8) mg/dL Ferritin (23.9-336.2) ng/mL Total Bilirubin (0.2-1.0) mg/dL Direct Bilirubin (0.1-0.5) mg/dL AST (10-42) IU/L ALT (10-60) IU/L Alkaline Phosphatase (42-121) IU/L Ammonia (7-35) umol/L Total Creatine Kinase (22-269) IU/L Troponin I High Sens (2.3-19.7) ng/L Total Protein (6.7-8.2) g/dL Albumin (3.2-5.5) g/dL Globulin (2.1-4.2) g/dL Albumin/Globulin Ratio (1.0-2.2) Triglycerides ( - 149) mg/dL Cholesterol ( - 199) mg/dL LDL Cholesterol, Calc ( - 129) mg/dL VLDL Cholesterol mg/dL HDL Cholesterol (60 - ) mg/dL LDL/HDL Ratio (<3.6) Cholesterol/HDL Ratio (<5.0) Urine Color Urine Clarity (CLEAR) Urine pH (5.0-7.5) PH Ur Specific Sumner (1.002-1.030) Urine Protein (NEGATIVE) mg/dL Urine Glucose (UA) (NEGATIVE) mg/dL Urine Ketones (NEGATIVE) mg/dL Urine Occult Blood (NEGATIVE) Urine Nitrite (NEGATIVE) Urine Bilirubin (NEGATIVE) Urine Urobilinogen (NORMAL) E.U./dL Ur Leukocyte Esterase (NEGATIVE) Urine RBC (0-5) /HPF Urine WBC (0-3) /HPF Ur Squamous Epith Cells (<= Few) Urine Bacteria (None Seen) /HPF Ur Microscopic Review Urine Culture Comments Urine Opiates Screen NEGATIVE (NEGATIVE) Ur Oxycodone Screen NEGATIVE (NEGATIVE) Urine Methadone Screen NEGATIVE (NEGATIVE) Ur Propoxyphene Screen NEGATIVE (NEGATIVE) Ur Barbiturates Screen NEGATIVE (NEGATIVE) Ur Tricyclics Screen NEGATIVE (NEGATIVE) Ur Phencyclidine Scrn NEGATIVE (NEGATIVE) Ur Amphetamine Screen NEGATIVE (NEGATIVE) U Methamphetamines Scrn NEGATIVE (NEGATIVE) U Benzodiazepines Scrn NEGATIVE (NEGATIVE) Urine Cocaine Screen NEGATIVE (NEGATIVE) U Cannabinoids Screen NEGATIVE (NEGATIVE) Ethyl Alcohol mg/dL Serum Ketones (NEGATIVE) 11/24/19 11/24/19 11/24/19 Range/Units 21:37 21:37 21:37 WBC (4.8-10.8) x10^3/uL RBC (4.70-6.10) 10^6/uL Hgb (14.0-18.0) g/dL Hct (42.0-52.0) % MCV (80.0-94.0) fL MCH (27.0-31.0) pg MCHC (32.0-36.0) g/dL RDW (12.0-15.0) % Plt Count (130-450) 10^3/uL MPV (7.4-11.4) fL Neut # (Auto) (1.5-6.6) 10^3/uL Lymph # (Auto) (1.5-3.5) 10^3/uL Bladen # (Auto) (0.0-1.0) 10^3/uL Eos # (Auto) (0.0-0.7) 10^3/uL Baso # (Auto) (0.0-0.1) 10^3/uL Absolute Nucleated RBC x10^3/uL Nucleated RBC % /100WBC PT (9.9-12.6) secs INR (0.8-1.2) VBG pH (7.31-7.41) VBG pCO2 (41-51) mmHg VBG pO2 (25-47) mmHg VBG HCO3 (23-28) mmol/L VBG Total CO2 (24-29) mmol/L VBG O2 Saturation (60-80) % VBG Base Excess (-2 - +2) mmol/L Sodium 128 L (135-145) mmol/L Potassium 3.1 L (3.5-5.0) mmol/L Chloride 92 L (101-111) mmol/L Carbon Dioxide 23 (21-32) mmol/L Anion Gap 13.0 (6-13) BUN 44 H (6-20) mg/dL Creatinine 1.3 H (0.6-1.2) mg/dL Estimated GFR (MDRD) 56 L (>89) Glucose 314 H (70-100) mg/dL Glycated Hemoglobin (4.6-6.2) % Estim Average Glucose (70-100) Lactic Acid (0.5-2.2) mmol/L Calcium 7.5 L (8.5-10.3) mg/dL Phosphorus (2.5-4.6) mg/dL Magnesium (1.7-2.8) mg/dL Ferritin (23.9-336.2) ng/mL Total Bilirubin (0.2-1.0) mg/dL Direct Bilirubin (0.1-0.5) mg/dL AST (10-42) IU/L ALT (10-60) IU/L Alkaline Phosphatase (42-121) IU/L Ammonia (7-35) umol/L Total Creatine Kinase 112 (22-269) IU/L Troponin I High Sens (2.3-19.7) ng/L Total Protein (6.7-8.2) g/dL Albumin (3.2-5.5) g/dL Globulin (2.1-4.2) g/dL Albumin/Globulin Ratio (1.0-2.2) Triglycerides ( - 149) mg/dL Cholesterol ( - 199) mg/dL LDL Cholesterol, Calc ( - 129) mg/dL VLDL Cholesterol mg/dL HDL Cholesterol (60 - ) mg/dL LDL/HDL Ratio (<3.6) Cholesterol/HDL Ratio (<5.0) Urine Color Urine Clarity (CLEAR) Urine pH (5.0-7.5) PH Ur Specific Sumner (1.002-1.030) Urine Protein (NEGATIVE) mg/dL Urine Glucose (UA) (NEGATIVE) mg/dL Urine Ketones (NEGATIVE) mg/dL Urine Occult Blood (NEGATIVE) Urine Nitrite (NEGATIVE) Urine Bilirubin (NEGATIVE) Urine Urobilinogen (NORMAL) E.U./dL Ur Leukocyte Esterase (NEGATIVE) Urine RBC (0-5) /HPF Urine WBC (0-3) /HPF Ur Squamous Epith Cells (<= Few) Urine Bacteria (None Seen) /HPF Ur Microscopic Review Urine Culture Comments Urine Opiates Screen (NEGATIVE) Ur Oxycodone Screen (NEGATIVE) Urine Methadone Screen (NEGATIVE) Ur Propoxyphene Screen (NEGATIVE) Ur Barbiturates Screen (NEGATIVE) Ur Tricyclics Screen (NEGATIVE) Ur Phencyclidine Scrn (NEGATIVE) Ur Amphetamine Screen (NEGATIVE) U Methamphetamines Scrn (NEGATIVE) U Benzodiazepines Scrn (NEGATIVE) Urine Cocaine Screen (NEGATIVE) U Cannabinoids Screen (NEGATIVE) Ethyl Alcohol < 5.0 mg/dL Serum Ketones (NEGATIVE) 11/24/19 11/24/19 11/24/19 Range/Units 21:37 21:37 21:37 WBC (4.8-10.8) x10^3/uL RBC (4.70-6.10) 10^6/uL Hgb (14.0-18.0) g/dL Hct (42.0-52.0) % MCV (80.0-94.0) fL MCH (27.0-31.0) pg MCHC (32.0-36.0) g/dL RDW (12.0-15.0) % Plt Count (130-450) 10^3/uL MPV (7.4-11.4) fL Neut # (Auto) (1.5-6.6) 10^3/uL Lymph # (Auto) (1.5-3.5) 10^3/uL Bladen # (Auto) (0.0-1.0) 10^3/uL Eos # (Auto) (0.0-0.7) 10^3/uL Baso # (Auto) (0.0-0.1) 10^3/uL Absolute Nucleated RBC x10^3/uL Nucleated RBC % /100WBC PT 23.3 H (9.9-12.6) secs INR 2.1 H (0.8-1.2) VBG pH (7.31-7.41) VBG pCO2 (41-51) mmHg VBG pO2 (25-47) mmHg VBG HCO3 (23-28) mmol/L VBG Total CO2 (24-29) mmol/L VBG O2 Saturation (60-80) % VBG Base Excess (-2 - +2) mmol/L Sodium (135-145) mmol/L Potassium (3.5-5.0) mmol/L Chloride (101-111) mmol/L Carbon Dioxide (21-32) mmol/L Anion Gap (6-13) BUN (6-20) mg/dL Creatinine (0.6-1.2) mg/dL Estimated GFR (MDRD) (>89) Glucose (70-100) mg/dL Glycated Hemoglobin (4.6-6.2) % Estim Average Glucose (70-100) Lactic Acid (0.5-2.2) mmol/L Calcium (8.5-10.3) mg/dL Phosphorus (2.5-4.6) mg/dL Magnesium (1.7-2.8) mg/dL Ferritin (23.9-336.2) ng/mL Total Bilirubin (0.2-1.0) mg/dL Direct Bilirubin (0.1-0.5) mg/dL AST (10-42) IU/L ALT (10-60) IU/L Alkaline Phosphatase (42-121) IU/L Ammonia 39.3 H (7-35) umol/L Total Creatine Kinase (22-269) IU/L Troponin I High Sens 42.7 H* (2.3-19.7) ng/L Total Protein (6.7-8.2) g/dL Albumin (3.2-5.5) g/dL Globulin (2.1-4.2) g/dL Albumin/Globulin Ratio (1.0-2.2) Triglycerides ( - 149) mg/dL Cholesterol ( - 199) mg/dL LDL Cholesterol, Calc ( - 129) mg/dL VLDL Cholesterol mg/dL HDL Cholesterol (60 - ) mg/dL LDL/HDL Ratio (<3.6) Cholesterol/HDL Ratio (<5.0) Urine Color Urine Clarity (CLEAR) Urine pH (5.0-7.5) PH Ur Specific [place]ner (1.002-1.030) Urine Protein (NEGATIVE) mg/dL Urine Glucose (UA) (NEGATIVE) mg/dL Urine Ketones (NEGATIVE) mg/dL Urine Occult Blood (NEGATIVE) Urine Nitrite (NEGATIVE) Urine Bilirubin (NEGATIVE) Urine Urobilinogen (NORMAL) E.U./dL Ur Leukocyte Esterase (NEGATIVE) Urine RBC (0-5) /HPF Urine WBC (0-3) /HPF Ur Squamous Epith Cells (<= Few) Urine Bacteria (None Seen) /HPF Ur Microscopic Review Urine Culture Comments Urine Opiates Screen (NEGATIVE) Ur Oxycodone Screen (NEGATIVE) Urine Methadone Screen (NEGATIVE) Ur Propoxyphene Screen (NEGATIVE) Ur Barbiturates Screen (NEGATIVE) Ur Tricyclics Screen (NEGATIVE) Ur Phencyclidine Scrn (NEGATIVE) Ur Amphetamine Screen (NEGATIVE) U Methamphetamines Scrn (NEGATIVE) U Benzodiazepines Scrn (NEGATIVE) Urine Cocaine Screen (NEGATIVE) U Cannabinoids Screen (NEGATIVE) Ethyl Alcohol mg/dL Serum Ketones (NEGATIVE) 11/24/19 11/24/19 11/24/19 Range/Units 18:03 18:03 18:00 WBC (4.8-10.8) x10^3/uL RBC (4.70-6.10) 10^6/uL Hgb (14.0-18.0) g/dL Hct (42.0-52.0) % MCV (80.0-94.0) fL MCH (27.0-31.0) pg MCHC (32.0-36.0) g/dL RDW (12.0-15.0) % Plt Count (130-450) 10^3/uL MPV (7.4-11.4) fL Neut # (Auto) (1.5-6.6) 10^3/uL Lymph # (Auto) (1.5-3.5) 10^3/uL [place] # (Auto) (0.0-1.0) 10^3/uL Eos # (Auto) (0.0-0.7) 10^3/uL Baso # (Auto) (0.0-0.1) 10^3/uL Absolute Nucleated RBC x10^3/uL Nucleated RBC % /100WBC PT (9.9-12.6) secs INR (0.8-1.2) VBG pH (7.31-7.41) VBG pCO2 (41-51) mmHg VBG pO2 (25-47) mmHg VBG HCO3 (23-28) mmol/L VBG Total CO2 (24-29) mmol/L VBG O2 Saturation (60-80) % VBG Base Excess (-2 - +2) mmol/L Sodium (135-145) mmol/L Potassium (3.5-5.0) mmol/L Chloride (101-111) mmol/L Carbon Dioxide (21-32) mmol/L Anion Gap (6-13) BUN (6-20) mg/dL Creatinine (0.6-1.2) mg/dL Estimated GFR (MDRD) (>89) Glucose (70-100) mg/dL Glycated Hemoglobin (4.6-6.2) % Estim Average Glucose (70-100) Lactic Acid 3.3 H* (0.5-2.2) mmol/L Calcium (8.5-10.3) mg/dL Phosphorus (2.5-4.6) mg/dL Magnesium (1.7-2.8) mg/dL Ferritin (23.9-336.2) ng/mL Total Bilirubin (0.2-1.0) mg/dL Direct Bilirubin (0.1-0.5) mg/dL AST (10-42) IU/L ALT (10-60) IU/L Alkaline Phosphatase (42-121) IU/L Ammonia (7-35) umol/L Total Creatine Kinase (22-269) IU/L Troponin I High Sens 40.4 H* (2.3-19.7) ng/L Total Protein (6.7-8.2) g/dL Albumin (3.2-5.5) g/dL Globulin (2.1-4.2) g/dL Albumin/Globulin Ratio (1.0-2.2) Triglycerides ( - 149) mg/dL Cholesterol ( - 199) mg/dL LDL Cholesterol, Calc ( - 129) mg/dL VLDL Cholesterol mg/dL HDL Cholesterol (60 - ) mg/dL LDL/HDL Ratio (<3.6) Cholesterol/HDL Ratio (<5.0) Urine Color DARK YELLOW Urine Clarity HAZY (CLEAR) Urine pH 6.0 (5.0-7.5) PH Ur Specific [place] <=1.005 (1.002-1.030) Urine Protein TRACE (NEGATIVE) mg/dL Urine Glucose (UA) 500 H (NEGATIVE) mg/dL Urine Ketones 15 H (NEGATIVE) mg/dL Urine Occult Blood MODERATE H (NEGATIVE) Urine Nitrite POSITIVE H (NEGATIVE) Urine Bilirubin LARGE H (NEGATIVE) Urine Urobilinogen 1 (NORMAL) (NORMAL) E.U./dL Ur Leukocyte Esterase MODERATE H (NEGATIVE) Urine RBC 6-10 H (0-5) /HPF Urine WBC 11-25 H (0-3) /HPF Ur Squamous Epith Cells MANY Squamous H (<= Few) Urine Bacteria Many H (None Seen) /HPF Ur Microscopic Review INDICATED Urine Culture Comments NOT INDICATED Urine Opiates Screen (NEGATIVE) Ur Oxycodone Screen (NEGATIVE) Urine Methadone Screen (NEGATIVE) Ur Propoxyphene Screen (NEGATIVE) Ur Barbiturates Screen (NEGATIVE) Ur Tricyclics Screen (NEGATIVE) Ur Phencyclidine Scrn (NEGATIVE) Ur Amphetamine Screen (NEGATIVE) U Methamphetamines Scrn (NEGATIVE) U Benzodiazepines Scrn (NEGATIVE) Urine Cocaine Screen (NEGATIVE) U Cannabinoids Screen (NEGATIVE) Ethyl Alcohol mg/dL Serum Ketones (NEGATIVE) 11/24/19 11/24/19 11/24/19 Range/Units 15:22 14:38 14:38 WBC (4.8-10.8) x10^3/uL RBC (4.70-6.10) 10^6/uL Hgb (14.0-18.0) g/dL Hct (42.0-52.0) % MCV (80.0-94.0) fL MCH (27.0-31.0) pg MCHC (32.0-36.0) g/dL RDW (12.0-15.0) % Plt Count (130-450) 10^3/uL MPV (7.4-11.4) fL Neut # (Auto) (1.5-6.6) 10^3/uL Lymph # (Auto) (1.5-3.5) 10^3/uL Bladen # (Auto) (0.0-1.0) 10^3/uL Eos # (Auto) (0.0-0.7) 10^3/uL Baso # (Auto) (0.0-0.1) 10^3/uL Absolute Nucleated RBC x10^3/uL Nucleated RBC % /100WBC PT (9.9-12.6) secs INR (0.8-1.2) VBG pH 7.470 H (7.31-7.41) VBG pCO2 32.9 L (41-51) mmHg VBG pO2 45.8 (25-47) mmHg VBG HCO3 23.4 (23-28) mmol/L VBG Total CO2 24.4 (24-29) mmol/L VBG O2 Saturation 85.4 H (60-80) % VBG Base Excess 0.4 (-2 - +2) mmol/L Sodium 125 L (135-145) mmol/L Potassium 3.5 (3.5-5.0) mmol/L Chloride 90 L (101-111) mmol/L Carbon Dioxide 22 (21-32) mmol/L Anion Gap 13.0 (6-13) BUN 49 H (6-20) mg/dL Creatinine 1.4 H (0.6-1.2) mg/dL Estimated GFR (MDRD) 51 L (>89) Glucose 468 H (70-100) mg/dL Glycated Hemoglobin (4.6-6.2) % Estim Average Glucose (70-100) Lactic Acid 3.8 H* (0.5-2.2) mmol/L Calcium 8.0 L (8.5-10.3) mg/dL Phosphorus (2.5-4.6) mg/dL Magnesium (1.7-2.8) mg/dL Ferritin (23.9-336.2) ng/mL Total Bilirubin 13.3 H (0.2-1.0) mg/dL Direct Bilirubin (0.1-0.5) mg/dL AST 188 H (10-42) IU/L ALT 100 H (10-60) IU/L Alkaline Phosphatase 119 (42-121) IU/L Ammonia (7-35) umol/L Total Creatine Kinase (22-269) IU/L Troponin I High Sens (2.3-19.7) ng/L Total Protein 7.4 (6.7-8.2) g/dL Albumin 2.6 L (3.2-5.5) g/dL Globulin 4.8 H (2.1-4.2) g/dL Albumin/Globulin Ratio 0.5 L (1.0-2.2) Triglycerides ( - 149) mg/dL Cholesterol ( - 199) mg/dL LDL Cholesterol, Calc ( - 129) mg/dL VLDL Cholesterol mg/dL HDL Cholesterol (60 - ) mg/dL LDL/HDL Ratio (<3.6) Cholesterol/HDL Ratio (<5.0) Urine Color Urine Clarity (CLEAR) Urine pH (5.0-7.5) PH Ur Specific [place]ner (1.002-1.030) Urine Protein (NEGATIVE) mg/dL Urine Glucose (UA) (NEGATIVE) mg/dL Urine Ketones (NEGATIVE) mg/dL Urine Occult Blood (NEGATIVE) Urine Nitrite (NEGATIVE) Urine Bilirubin (NEGATIVE) Urine Urobilinogen (NORMAL) E.U./dL Ur Leukocyte Esterase (NEGATIVE) Urine RBC (0-5) /HPF Urine WBC (0-3) /HPF Ur Squamous Epith Cells (<= Few) Urine Bacteria (None Seen) /HPF Ur Microscopic Review Urine Culture Comments Urine Opiates Screen (NEGATIVE) Ur Oxycodone Screen (NEGATIVE) Urine Methadone Screen (NEGATIVE) Ur Propoxyphene Screen (NEGATIVE) Ur Barbiturates Screen (NEGATIVE) Ur Tricyclics Screen (NEGATIVE) Ur Phencyclidine Scrn (NEGATIVE) Ur Amphetamine Screen (NEGATIVE) U Methamphetamines Scrn (NEGATIVE) U Benzodiazepines Scrn (NEGATIVE) Urine Cocaine Screen (NEGATIVE) U Cannabinoids Screen (NEGATIVE) Ethyl Alcohol mg/dL Serum Ketones NEGATIVE (NEGATIVE) 11/24/19 11/24/19 Range/Units 14:38 14:38 WBC 8.7 (4.8-10.8) x10^3/uL RBC 3.30 L (4.70-6.10) 10^6/uL Hgb 11.9 L (14.0-18.0) g/dL Hct 34.3 L (42.0-52.0) % MCV 103.9 H (80.0-94.0) fL MCH 36.1 H (27.0-31.0) pg MCHC 34.7 (32.0-36.0) g/dL RDW 13.4 (12.0-15.0) % Plt Count 42 L (130-450) 10^3/uL MPV 11.3 (7.4-11.4) fL Neut # (Auto) 6.9 H (1.5-6.6) 10^3/uL Lymph # (Auto) 1.1 L (1.5-3.5) 10^3/uL [place]aden # (Auto) 0.7 (0.0-1.0) 10^3/uL Eos # (Auto) 0.0 (0.0-0.7) 10^3/uL Baso # (Auto) 0.0 (0.0-0.1) 10^3/uL Absolute Nucleated RBC 0.02 x10^3/uL Nucleated RBC % 0.2 /100WBC PT (9.9-12.6) secs INR (0.8-1.2) VBG pH (7.31-7.41) VBG pCO2 (41-51) mmHg VBG pO2 (25-47) mmHg VBG HCO3 (23-28) mmol/L VBG Total CO2 (24-29) mmol/L VBG O2 Saturation (60-80) % VBG Base Excess (-2 - +2) mmol/L Sodium (135-145) mmol/L Potassium (3.5-5.0) mmol/L Chloride (101-111) mmol/L Carbon Dioxide (21-32) mmol/L Anion Gap (6-13) BUN (6-20) mg/dL Creatinine (0.6-1.2) mg/dL Estimated GFR (MDRD) (>89) Glucose (70-100) mg/dL Glycated Hemoglobin (4.6-6.2) % Estim Average Glucose (70-100) Lactic Acid (0.5-2.2) mmol/L Calcium (8.5-10.3) mg/dL Phosphorus (2.5-4.6) mg/dL Magnesium (1.7-2.8) mg/dL Ferritin (23.9-336.2) ng/mL Total Bilirubin (0.2-1.0) mg/dL Direct Bilirubin (0.1-0.5) mg/dL AST (10-42) IU/L ALT (10-60) IU/L Alkaline Phosphatase (42-121) IU/L Ammonia (7-35) umol/L Total Creatine Kinase (22-269) IU/L Troponin I High Sens 50.4 H* (2.3-19.7) ng/L Total Protein (6.7-8.2) g/dL Albumin (3.2-5.5) g/dL Globulin (2.1-4.2) g/dL Albumin/Globulin Ratio (1.0-2.2) Triglycerides ( - 149) mg/dL Cholesterol ( - 199) mg/dL LDL Cholesterol, Calc ( - 129) mg/dL VLDL Cholesterol mg/dL HDL Cholesterol (60 - ) mg/dL LDL/HDL Ratio (<3.6) Cholesterol/HDL Ratio (<5.0) Urine Color Urine Clarity (CLEAR) Urine pH (5.0-7.5) PH Ur Specific [place] (1.002-1.030) Urine Protein (NEGATIVE) mg/dL Urine Glucose (UA) (NEGATIVE) mg/dL Urine Ketones (NEGATIVE) mg/dL Urine Occult Blood (NEGATIVE) Urine Nitrite (NEGATIVE) Urine Bilirubin (NEGATIVE) Urine Urobilinogen (NORMAL) E.U./dL Ur Leukocyte Esterase (NEGATIVE) Urine RBC (0-5) /HPF Urine WBC (0-3) /HPF Ur Squamous Epith Cells (<= Few) Urine Bacteria (None Seen) /HPF Ur Microscopic Review Urine Culture Comments Urine Opiates Screen (NEGATIVE) Ur Oxycodone Screen (NEGATIVE) Urine Methadone Screen (NEGATIVE) Ur Propoxyphene Screen (NEGATIVE) Ur Barbiturates Screen (NEGATIVE) Ur Tricyclics Screen (NEGATIVE) Ur Phencyclidine Scrn (NEGATIVE) Ur Amphetamine Screen (NEGATIVE) U Methamphetamines Scrn (NEGATIVE) U Benzodiazepines Scrn (NEGATIVE) Urine Cocaine Screen (NEGATIVE) U Cannabinoids Screen (NEGATIVE) Ethyl Alcohol mg/dL Serum Ketones (NEGATIVE) ABX Reporting Has patient been on IV antibiotics over the past 48 hours?: No Assessment/Plan - Problem List (1) Alcoholic hepatitis Impression: Alcohol abuse for 30 years, jaundice present, hepatomegaly and ascites present on Abd CT and Abdomenal US, ALT 91, AST:ALT ratio 180/91=1.98, plt 23.3 , total bilirubin 11.7, INR 2.1. 1. Maddrey's discrimination function 23.3-Patient may benefit from glucocorticoid after infection ruled out. 2. SW to provided resources to support patient to quit alcohol use. Qualifiers: Ascites presence: with ascites Qualified Code(s): K70.11 - Alcoholic hepatitis with ascites (2) Liver cirrhosis Impression: Liver cirrhosis with ABD US showing nodular contouring, liver enlargement, ascites and portal hypertension present on US and CT, jaundice. Elevated LFTs, bilirubin and PT/INR, decreased albumin, AST>ALT, anemia, thrombocytopenia, hyponatremia, hyperferritinemia, n FibroSURE? Modified Sranv-Zqjwltvb-Krmq Score is 12 points=Child Class C MELD score 30 Qualifiers: Hepatic cirrhosis type: alcoholic cirrhosis Ascites presence: with ascites Qualified Code(s): K70.31 - Alcoholic cirrhosis of liver with ascites (3) Type 2 diabetes mellitus with hyperglycemia Impression: He denies a history of diabetes in the past but he was on metformin for a brief period of time. His blood glucose at admit is 468. No evidence of DKA. He has been started on Lantus this evening and sliding scale. A1c 7.4. 1. For new diagnosis of DM2 will consult nutrition and early childhood educator aide. 2. Carbohydrate managed diet. (4) Alcohol abuse Impression: To monitor for alcohol withdrawal given his heavy alcohol use. We will continue intravenous thiamine and multivitamin infusion. CIWA protocol with scores overnight of 0 and 2. 1. Continue CIWA protocol and monitoring for delerium tremens 2. Social work consult to assist with alcohol cessation. 3. Monitor magnesium levels with goal to keep > 2. (5) Thrombocytopenia Impression: His platelets are low at 42 at admit and 125 approximately 1 year ago. Suspect secondary to liver cirrhosis. Platlets trending downwards with 23.3 11/25/2019. No evidence of obvious bleeding at this time. 1. SCDs for DVT prophylaxis. No chemical DVT prophylaxis given thrombocytopenia. 2. Watch from signs and symptoms of bleeding. 3. No indication for transfusion at the moment. (6) Elevated troponin Impression: Troponin I 42.8 at admit. No chest pain or pressure. Chest x-ray 11/24/2019 unremarkable. EKG 11/24/2019 with sinus tachycardia, left axis deviation and abnormal R wave progression. ECHO complete 11/24/2019 with LVEF 60-65%. Patient hemodynamically stable. Tachycardia has resolved. Presumed demand ischemia. (7) Acute kidney injury Impression: Creatinine was elevated at 1.4 compared to his baseline of 0.8. Has come down to 1.0 with IV fluid hydration. His admit BUN was 44. now 39. Suspect this is prerenal injury secondary to dehydration. Urine output has been adequate with +1910 ml, -950ml, and net 960 ml. 1. We will continue treating him with IV fluids. 2. Monitor his renal function and urine output. 3. If it does not continue to improve with fluids, may be hepatorenal syndrome. (Will check a urine sodium as he may benefit from albumin and octreotide.) (8) Lactic acidosis Impression: Lactic acid elevated on admission at . With 2 L IV NS overnight, has improved to 1.7 11/25/2019. Likely secondary to dehydration. 1. Contine IV fluid hydration until this afternoon (11/25/2019) and then re- evaluate. (9) Hyponatremia Impression: Patient hyponatremic on admit, 125. After total 4L NS IV hydration, patient sodium has improved to 133. 1. Daily CMP. (10) Bladder distension Impression: There is evidence of moderate bladder distention on the CT of the abdomen and pelvis. His urinalysis was a dirty catch unfortunately but he does not have symptoms of dysuria, urgency, hematuria. There is concern he may be retaining urine given these findings. We discussed that he might need straight catheterization but he would prefer to hold off given his urethral replacement in the past. Throughout the afternoon, the patient has had a significant difficulty emptying his bladder. 1. May need to straight cath patient for urinary retention. 2. Patient onsider starting him on Flomax if he is unable to urinate (11) Insomnia Impression: Patient reports that he has had insomnia throughout his life. He currently uses vodka to help him sleep. In the past, he has taken Ambien and ativan to sleep. Discussed with patient that alcohol intake may be contributing to his insomnia
--- NOTE | 2019-11-25 10:39 | PHARMACY PROGRESS NOTE ---
- Best Possible Medication History Admit Date and Time: 11/24/19 1696 Processed by: Pharmacy Medication History completed: Yes Patient Interview: Completed (Per patient, has not been on any medications at home for a year and has yet to see a PCP. PCP med records were reviewed with patient and per patient is not on metformin, glipizde, sertraline, lorazepam, or zolpidem. Insuance record report resulted in no filled prescription med hx) Secondary Source(s): Physician records, Insurance records As the person ultimately responsible for medication therapy, providers are able to order a medication from an existing home medication list in [facility] via the "Reconcile Routine" prior to Confirmation of that medication by customer support manager. Such practice is discouraged except when the physician, in their clinical judgment, deems that a medical need exists for a medication without regard to previous use.
[2019-11-25 11:17] LABS: FOLATE 11.44 ng/mL (5.90 - >24.8)
[2019-11-25] MEDS: SODIUM CHLORIDE 0.9% 1,000 ML IV SCH (11:28)
[2019-11-25 11:35] LABS: GLUCOSE, URINE (UA) 250 mg/dL (NEGATIVE); KETONES,URINE (UA) TRACE mg/dL (NEGATIVE); LEUKOCYTE ESTERASE, URINE NEGATIVE (NEGATIVE); NITRITE,URINE POSITIVE (NEGATIVE); OCCULT BLOOD,URINE TRACE-INTA (NEGATIVE); PH,URINE 5.5 PH (5.0-7.5); PROTEIN,URINE NEGATIVE (NEGATIVE); UROBILINOGEN,URINE 1 (NORMAL) E.U./dL (NORMAL)
[2019-11-25 11:36] LABS: CLARITY,URINE CLOUDY (CLEAR)
[2019-11-25 11:39] LABS: BILIRUBIN,URINE LARGE (NEGATIVE); ICTOTEST,URINE POSITIVE
[2019-11-25 11:42] LABS: BACTERIA,URINE Moderate /HPF (None Seen); RBC,URINE 0-5 /HPF (0-5); SQUAMOUS EPITHELIAL CELL,UR RARE Squamous (<= Few)
[2019-11-25 13:19] LABS: CALCIUM 7.3 mg/dL (8.5-10.3); CREATININE 1.1 mg/dL (0.6-1.2); MAGNESIUM 2.5 mg/dL (1.7-2.8); PHOSPHORUS 1.6 mg/dL (2.5-4.6)
[2019-11-25] MEDS: cefTRIAXone 1 GM in SODIUM CHLORIDE 0.9% MINIBAG 100 ML IV SCH (17:13)
[2019-11-25] MEDS: INSULIN ASPART 300 UNIT/3 ML PEN SUBQ SCH ×3 (17:22→21:18)
--- NOTE | 2019-11-25 18:18 | ADVANCE CARE PLANNING NOTE ---
Advance Care Planning - Planning Encounter Date: 11/25/19 Time: 18:09 Purpose: establish goals of care in face of potentially life threatening disease Parties in Attendance: Patient, , [employer] student Margaret Waterman and hospitalist Jazmin Tello MD Decisional Capacity of the Patient: inact. alert, oriented. 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 He moved to [place] in 2014. His daughter was a sophomore in high school. He just wanted to get out of the [place] race which was [facility] and his job. Once his daughter graduated from [employer] school, they were in the midst of figuring out finances for paying for her college. They moved from [place] to [facility]. She ended up getting a full ride at [employer] and is very proud of her. She is his only child. Insomnia has been a big part of his life with regards to anxiety about the job. Initially he did [employer] [facility] [employer] for several years and then he went on to [employer] for a decade when he finally decided that alcohol would be best of all to treat the insomnia. He has had a few falls while he was intoxicated. But he rationalizes that he would be miserable without a sleep, hence the drinking. He was seen in our emergency room in November 2018 for a fall. Ended up having small bilateral subdurals and transferred to [facility]. He was given Librium for 4 days. Does not really feel like he went through severe withdrawal. And was off alcohol for 3 months. His daughter came home from [place]. And he felt like he wanted to just celebrate her being home and took that first drink and has been downhill since then. He describes his life is very good. He drives. Pays bills. Is able to do housework, yard work. This is in spite of occasional stumbling while intoxicated. It took me a bit of time to get out of him how much she drinks. He grocery shops about every other day. And he pinpoints that he buys 2 bottles of wine every other day, and a gallon of vodka every other day. His left to go to [place] this last couple of weeks. She went to go visit her mother. She states that ever since she got back, he is just not been himself. He has been weak. Had no appetite. Falling more than usual. Neither 1 of them suspected alcoholic liver disease. They felt that something else must be going on. He does have a history of urethral reconstruction because of multiple straight catheterizations in the remote past. He is unable to share the insight with me of why he had multiple straight caths. In any case, she brought him to the emergency room where he was found to have: 1. Uncontrolled diabetes in the 400s 2. Dehydration with hyponatremia 3. Liver failure with a total bili of 13, INR greater than 2, minimal ascites, petechia of his feet. 4. Urine that looks heavily infected but also has squamous cells so difficult to say. 5. Mild hepatic encephalopathy. He is starting to realize the gravity of his situation. He states that he and his had a lot to talk about. 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 Although he is leaning to a DO NOT RESUSCITATE status with limited interventions, he really has not statin thought this out in view of the fact that his liver failure is quite significant. He would like to speak to his daughter and about things before he makes up his mind. Objective/Medical Story: This is a 64-year-old male with a past medical history significant for alcohol abuse, hyperglycemia, insomnia who presents today complaining of worsening generalized weakness. He states that he fell this past Friday at home he was trying to get out of a couch. He denied any syncope or loss of consciousness. He does not recall hitting his head. He states he had difficulty getting off the floor after he fell but eventually was able to get up with assistance. On Friday his weakness had improved and he felt that he was doing well overall. The following day on Friday, his noticed that he had become weaker again but they attributed this to him ambulating more on Friday and to fatigue. Unfortunately, today he had another fall at home and his weakness continued to become more prominent. He reports neuropathy in his lower extremities been present for about 1 week. He also states he noticed edema in his lower extremities over the past 3 days. He has no fevers, chills, chest pain, dyspnea. He takes no medications at home except for occasional Aleve for pain and Benadryl on a nightly basis for his insomnia. He reports he drinks 2 glasses of wine and 3 glasses of vodka every night to help him sleep. He has been drinking on a daily basis for over 30 years. He reports he did quit about a year ago for 3 months after he had a fall where he hit his head and there was concern for subdural hematoma and he required to be admitted at [facility]. He states he quit alcohol for about 3 months after that but his insomnia became bothersome and so he returned to drinking. He has tried Ambien and Ativan in the past but this was many years ago. Reports no focal motor deficits or headaches. He reports no liver problems to his knowledge. He denies any family history of cirrhosis. He reports no Tylenol use, IV drug use, history of hepatitis, history of tattoos or transfusions. He also reports no diagnosis of diabetes. He states that many years ago he was prescribed metformin for elevated blood sugars while he was hospitalized but when he followed up with his primary care provider, he was told his A1c was 5.9% and so he stopped the metformin. He states he has been eating well these past few days. He has been drinking plenty of water. Denies any increased urinary frequency, dysuria, urgency, hematuria. He reports no difficulty urinating. He states he had a urethral replacement back in 2008 after he had urethral strictures. He no longer sees a urologist. Goals of care were discussed on admission and he would like to be a full code at the moment. But after discussing the severity of his illness, and my describing his Maddrey's score, Child's classification, he is rethinking full CODE STATUS. 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 He states that he will stop drinking 2. Next step would be to establish himself with a primary care provider that is affiliated with the multispecialty group. Because he will then need to be referred to liver disease specialty. 3. To remain independent as he is now. He loves his life. His in a good place with regards to less stress, proud of his daughter, but still having problems with insomnia 4. Find a different way to get to sleep other than alcohol. Plan: 1. Establish whether he wants to remain full code or go to DO NOT RESUSCITATE status with limited intervention 2. Discuss options and prognosis of his liver failure with specialty services after establishing himself with a primary care provider 3. After discharge make sure he takes folate, thiamine. We will establish wh ether he needs a beta-bennett and/or diuretic. Code Status: Attempt Resuscitation
[2019-11-25] MEDS ORDERED: INSULIN GLARGINE 300 UNIT/3 ML PEN SUBQ SCH (21:00)
[2019-11-25] MEDS: SODIUM CHLORIDE FLUSH 0.9% 10 ML SYRINGE IVP PRN (21:55)
[2019-11-26 05:24] LABS: BASOPHILS % (AUTO) 0.2 %; EOSINOPHILS # (AUTO) 0.2 10^3/uL (0.0-0.7); EOSINOPHILS % (AUTO) 3.6 %; HGB - HEMOGLOBIN 10.4 g/dL (14.0-18.0); LYMPHOCYTES # (AUTO) 1.3 10^3/uL (1.5-3.5); MEAN CORPUSCULAR HEMOGLOBIN 34.7 pg (27.0-31.0); MEAN CORPUSCULAR HGB CONC 33.4 g/dL (32.0-36.0); MEAN CORPUSCULAR VOLUME 103.7 fL (80.0-94.0); MEAN PLATELET VOLUME 10.7 fL (7.4-11.4); MONOCYTES # (AUTO) 0.8 10^3/uL (0.0-1.0); MONOCYTES % (AUTO) 13.1 %; NEUTROPHILS # (AUTO) 3.7 10^3/uL (1.5-6.6); NEUTROPHILS % (AUTO) 61.1 %; PLT - PLATELET COUNT 48 10^3/uL (130-450); RED CELL DISTRIBUTION WIDTH 13.8 % (12.0-15.0); WHITE BLOOD COUNT 6.1 x10^3/uL (4.8-10.8)
[2019-11-26 05:55] LABS: ALBUMIN 2.1 g/dL (3.2-5.5); BILIRUBIN,DIRECT 7.8 mg/dL (0.1-0.5); BILIRUBIN,TOTAL 12.5 mg/dL (0.2-1.0); MAGNESIUM 2.7 mg/dL (1.7-2.8); PHOSPHORUS 1.5 mg/dL (2.5-4.6)
[2019-11-26] MEDS ORDERED: POTASSIUM CHLORIDE 20 MEQ TABLET PO ONE (06:41)
[2019-11-26] MEDS: PANTOPRAZOLE 40 MG TABLET PO SCH (06:50)
[2019-11-26] MEDS ORDERED: POTASSIUM PHOSPHATE 21 MMOL in SODIUM CHLORIDE 0.9% 250 ML IV ONE (07:30)
[2019-11-26] MEDS: INSULIN ASPART 300 UNIT/3 ML PEN SUBQ SCH ×7 (08:05→21:44)
[2019-11-26] MEDS: SODIUM CHLORIDE FLUSH 0.9% 10 ML SYRINGE IVP SCH ×2 (09:15→17:05)
[2019-11-26] MEDS ORDERED: SODIUM PHOSPHATE 15 MMOL in SODIUM CHLORIDE 0.9% 250 ML IV ONE (09:58)
[2019-11-26] MEDS ORDERED: POTASSIUM CHLORIDE 20 MEQ/15 ML UDC PO SCH (10:00)
--- NOTE | 2019-11-26 10:59 | PROVIDER PROGRESS NOTE ---
Subjective - Prog Note Date Prog Note Date: 11/26/19 Prog Note Time: 10:57 - Subjective Pt reports feeling: Improved Subjective: Patient said that he feels better than he did when he was at home. He is eating and drinking, took a shower, and wants to go home. Current Medications - Current Medications Current Medications: Active Medications Acetaminophen (Tylenol) 650 mg PO Q4HR PRN PRN Reason: Pain 1 to 4 Diphenhydramine HCl (Benadryl) 25 mg PO QPM PRN PRN Reason: Insomnia Folic Acid () 1 mg PO DAILY [facility] Ceftriaxone Sodium 1 gm/ (Sodium Chloride) 100 mls @ 200 mls/hr IV Q24H [facility] Last Infusion: 11/25/19 17:43 Dose: Infused Potassium Phosphate 21 mmol/ (Sodium Chloride) 257 mls @ 42.833 mls/hr IV ONCE ONE Stop: 11/26/19 13:29 Last Admin: 11/26/19 09:14 Dose: 42.833 mls/hr Insulin Aspart (Novolog) 1 - 9 unit SUBQ 0800,1200,1700,2100 [facility]; Protocol Last Admin: 11/26/19 08:05 Dose: 7 unit Insulin Aspart (Novolog) 8 unit SUBQ TIDWM [facility]; Protocol Insulin Glargine (Lantus Solostar) 12 unit SUBQ BIDAC [facility] Mineral Oil (Cavilon) 1 applic TOP PRN PRN PRN Reason: Skin Care Ondansetron HCl (Zofran Inj) 4 mg IVP Q6HR PRN PRN Reason: Nausea / Vomiting Ondansetron HCl (Zofran Odt) 4 mg TL Q6HR PRN PRN Reason: Nausea / Vomiting Oxycodone HCl (Roxicodone) 5 mg PO Q4HR PRN PRN Reason: Pain 5 to 7 Pantoprazole Sodium (Protonix) 40 mg PO QDAC [facility] Last Admin: 11/26/19 06:50 Dose: 40 mg Sodium Chloride (Normal Saline Flush 0.9%) 10 ml IVP PRN PRN PRN Reason: NEEDED PER PROVIDER ORDERS Last Admin: 11/25/19 21:55 Dose: 10 ml Sodium Chloride (Normal Saline Flush 0.9%) 10 ml IVP 0100,0900,1700 [facility] Last Admin: 11/26/19 09:15 Dose: 10 ml Thiamine HCl (Vitamin B-1) 100 mg PO DAILY [facility] No Known Home Medications 11/25/19 Objective - Vital Signs/Intake & Output Reviewed Vital Signs: Yes Vital Signs: Vital Signs x48h Temp Pulse Resp BP Pulse Ox 11/26/19 07:27 36.3 C L 107 H 22 132/72 H 94 11/26/19 03:27 36.9 C 107 H 18 109/69 95 Intake & Output: Intake & Output 11/23/19 11/24/19 11/25/19 11/26/19 23:59 23:59 23:59 23:59 Intake Total 2200 3918.200 1090 Output Total 1625 300 Balance 2200 2293.200 790 - Objective General Appearance: positive: No acute distress, Alert Eyes Bilateral: positive: Normal inspection, PERRL. negative: No scleral icterus Eyes: OU Scleral icterus Neck: positive: Nml inspection, Thyroid nml, Trachea midline Respiratory: positive: No respiratory distress, Breath sounds nml Cardiovascular: positive: Regular rate & rhythm. negative: No murmur, No gallop Peripheral Pulses: 2+ Radial (R), 2+ Radial (L), 2+ Dorsalis pedis (R), 2+ Dorsalis pedis (L) Abdomen: positive: Nml bowel sounds, Other (Distended). negative: No distention Back: positive: Nml inspection Skin: positive: Color nml, Warm, Dry. negative: Diaphoresis Extremities: positive: Full ROM, Pedal edema Neurologic/Psychiatric: positive: Oriented x3, Motor nml, Sensation nml, Mood/affect nml - Lab Results Fish Bones: 11/26/19 04:40 11/26/19 04:40 Other Labs: Lab Results x24hrs 11/26/19 11/26/19 11/25/19 Range/Units 04:40 04:40 12:54 WBC 6.1 (4.8-10.8) x10^3/uL RBC 3.00 L (4.70-6.10) 10^6/uL Hgb 10.4 L (14.0-18.0) g/dL Hct 31.1 L (42.0-52.0) % MCV 103.7 H (80.0-94.0) fL MCH 34.7 H (27.0-31.0) pg MCHC 33.4 (32.0-36.0) g/dL RDW 13.8 (12.0-15.0) % Plt Count 48 L (130-450) 10^3/uL MPV 10.7 (7.4-11.4) fL Neut # (Auto) 3.7 (1.5-6.6) 10^3/uL Lymph # (Auto) 1.3 L (1.5-3.5) 10^3/uL [place] # (Auto) 0.8 (0.0-1.0) 10^3/uL Eos # (Auto) 0.2 (0.0-0.7) 10^3/uL Baso # (Auto) 0.0 (0.0-0.1) 10^3/uL Absolute Nucleated RBC 0.02 x10^3/uL Nucleated RBC % 0.3 /100WBC Sodium 129 L 126 L (135-145) mmol/L Potassium 3.3 L 3.9 (3.5-5.0) mmol/L Chloride 98 L 93 L (101-111) mmol/L Carbon Dioxide 23 21 (21-32) mmol/L Anion Gap 8.0 12.0 (6-13) BUN 29 H 37 H (6-20) mg/dL Creatinine 1.0 1.1 (0.6-1.2) mg/dL Estimated GFR (MDRD) 75 L 68 L (>89) Glucose 322 H 338 H (70-100) mg/dL Calcium 7.0 L 7.3 L (8.5-10.3) mg/dL Phosphorus 1.5 L 1.6 L (2.5-4.6) mg/dL Magnesium 2.7 2.5 (1.7-2.8) mg/dL Total Bilirubin 12.5 H (0.2-1.0) mg/dL Direct Bilirubin 7.8 H (0.1-0.5) mg/dL AST 162 H (10-42) IU/L ALT 86 H (10-60) IU/L Alkaline Phosphatase 125 H (42-121) IU/L Total Protein 6.0 L (6.7-8.2) g/dL Albumin 2.1 L (3.2-5.5) g/dL Globulin 3.9 (2.1-4.2) g/dL Vitamin B12 (180-914) pg/mL Folate (5.90 - >24.8) ng/mL Urine Color Urine Clarity (CLEAR) Urine pH (5.0-7.5) PH Ur Specific [place] (1.002-1.030) Urine Protein (NEGATIVE) mg/dL Urine Glucose (UA) (NEGATIVE) mg/dL Urine Ketones (NEGATIVE) mg/dL Urine Occult Blood (NEGATIVE) Urine Nitrite (NEGATIVE) Urine Bilirubin (NEGATIVE) Urine Urobilinogen (NORMAL) E.U./dL Ur Leukocyte Esterase (NEGATIVE) Urine RBC (0-5) /HPF Urine WBC (0-3) /HPF Ur Squamous Epith Cells (<= Few) Urine Bacteria (None Seen) /HPF Urine Culture Comments Urine Sodium mmol/L 11/25/19 11/25/19 11/25/19 Range/Units 11:00 11:00 05:05 WBC (4.8-10.8) x10^3/uL RBC (4.70-6.10) 10^6/uL Hgb (14.0-18.0) g/dL Hct (42.0-52.0) % MCV (80.0-94.0) fL MCH (27.0-31.0) pg MCHC (32.0-36.0) g/dL RDW (12.0-15.0) % Plt Count (130-450) 10^3/uL MPV (7.4-11.4) fL Neut # (Auto) (1.5-6.6) 10^3/uL Lymph # (Auto) (1.5-3.5) 10^3/uL [place] # (Auto) (0.0-1.0) 10^3/uL Eos # (Auto) (0.0-0.7) 10^3/uL Baso # (Auto) (0.0-0.1) 10^3/uL Absolute Nucleated RBC x10^3/uL Nucleated RBC % /100WBC Sodium (135-145) mmol/L Potassium (3.5-5.0) mmol/L Chloride (101-111) mmol/L Carbon Dioxide (21-32) mmol/L Anion Gap (6-13) BUN (6-20) mg/dL Creatinine (0.6-1.2) mg/dL Estimated GFR (MDRD) (>89) Glucose (70-100) mg/dL Calcium (8.5-10.3) mg/dL Phosphorus (2.5-4.6) mg/dL Magnesium (1.7-2.8) mg/dL Total Bilirubin (0.2-1.0) mg/dL Direct Bilirubin (0.1-0.5) mg/dL AST (10-42) IU/L ALT (10-60) IU/L Alkaline Phosphatase (42-121) IU/L Total Protein (6.7-8.2) g/dL Albumin (3.2-5.5) g/dL Globulin (2.1-4.2) g/dL Vitamin B12 1207 H (180-914) pg/mL Folate 11.44 (5.90 - >24.8) ng/mL Urine Color ORANGE Urine Clarity CLOUDY (CLEAR) Urine pH 5.5 (5.0-7.5) PH Ur Specific [place] 1.020 (1.002-1.030) Urine Protein NEGATIVE (NEGATIVE) mg/dL Urine Glucose (UA) 250 H (NEGATIVE) mg/dL Urine Ketones TRACE (NEGATIVE) mg/dL Urine Occult Blood TRACE-INTA (NEGATIVE) Urine Nitrite POSITIVE H (NEGATIVE) Urine Bilirubin LARGE H (NEGATIVE) Urine Urobilinogen 1 (NORMAL) (NORMAL) E.U./dL Ur Leukocyte Esterase NEGATIVE (NEGATIVE) Urine RBC 0-5 (0-5) /HPF Urine WBC 0-3 (0-3) /HPF Ur Squamous Epith Cells RARE Squamous (<= Few) Urine Bacteria Moderate H (None Seen) /HPF Urine Culture Comments INDICATED Urine Sodium < 12.0 mmol/L ABX Reporting Has patient been on IV antibiotics over the past 48 hours?: No Assessment/Plan - Problem List (1) Alcoholic hepatitis Impression: Alcohol abuse for 30 years. Patient reports drinking a bottle of wine and half gallon of vodka per day. Jaundice present, hepatomegaly and ascites present on Abd CT and Abdomenal US, ALT 86, AST:ALT ratio 162/86=1.88, plt 48, total bilirubin 12.5, INR 2.1. Patient declined the resources from for support to quit alcohol. Dr. Tello and [employer] student spent 30 minutes with patient's about patient's prognosis, illness, importance of not drinking, and next steps with outpatient appointments. 1. [place]'s discrimination function 23.3, MELD 30 with 52.6% mortality in [address] Tello referred patient to [facility]. Patients information faxed and they should be contacting the patient's . Qualifiers: Ascites presence: with ascites Qualified Code(s): K70.11 - Alcoholic hepatitis with ascites (2) Liver cirrhosis Impression: Liver cirrhosis with ABD US showing nodular contouring, liver enlargement, ascites and portal hypertension present on US and CT, jaundice. Elevated LFTs, bilirubin and PT/INR, decreased albumin, AST>ALT, anemia, thrombocytopenia, hyponatremia, hyperferritinemia. Ammonia Hep A Ig MAb, Hep Bs antigen, Hep B Core IgM Ab, and Hep C antibody were all non-reactive, and Hep C Ab Signal/sutoff 0. Modified Nptsl-[id number]-Xdhc Score is 12 points=Child Class C. MELD score 30. We will also check an ammonia level. Will eventually need to be on propanolol and appropriate diuretics given there is evidence of ascites on CT. Qualifiers: Hepatic cirrhosis type: alcoholic cirrhosis Ascites presence: with ascites Qualified Code(s): K70.31 - Alcoholic cirrhosis of liver with ascites (3) Type 2 diabetes mellitus with hyperglycemia Impression: He denies a history of diabetes in the past but he was on metformin for a brief period of time. His blood glucose at admit is 468. No evidence of DKA. He has been started on Lantus this evening and sliding scale. A1c 7.4. Blood glucose 117, 338, and 322. L[place] dose increased, fixed dose of insulin aspart increased. Moderate sliding scale insulin at meals. 1. For new diagnosis of DM2 will consult nutrition and management expert. 2. Carbohydrate managed diet. 3. Teach patient and his how to given SQ insulin in preparation for discharge. (4) Alcohol abuse Impression: To monitor for alcohol withdrawal given his heavy alcohol use. We will continue intravenous thiamine and multivitamin infusion. CIWA protocol with scores overnight of 0-2 throughout his stay. Patient declined support services to aid w ith his abstinence of alcohol. 1. Continue CIWA protocol and monitoring for delerium tremens 2. Conversation with patient's recommending that she seek support for patient's alcohol abuse. 3. Discussed prognosis related to patient's liver failure related to his alcohol abuse with patient's . (5) Thrombocytopenia Impression: His platelets are low at 42 at admit and 125 approximately 1 year ago. Suspect secondary to liver cirrhosis. Platlets 48 (11/25). No evidence of obvious bleeding at this time. 1. SCDs for DVT prophylaxis. No chemical DVT prophylaxis given thrombocytopenia. 2. Watch from signs and symptoms of bleeding. 3. No indication for transfusion at the moment. (6) Elevated troponin Impression: Troponin I 50.4 at admit. No chest pain or pressure. Chest x-ray 11/24/2019 unremarkable. EKG 11/24/2019 with sinus tachycardia, left axis deviation and abnormal R wave progression. ECHO complete 11/24/2019 with LVEF 60-65%. Patient hemodynamically stable. Tachycardia has resolved. Troponin I downtrending. Presumed demand ischemia. (7) Acute kidney injury Impression: Creatinine was elevated at 1.4 compared to his baseline of 0.8. Has come down to 1.0 with IV fluid hydration. His admit BUN was 44. now 39. Suspect this is prerenal injury secondary to dehydration. Urine output has been adequate. Creatinine 1.0, BUN 29. 1. Stop IV fluids. 2. Monitor urine output. (8) Lactic acidosis Impression: RESOLVED Lactic acid elevated on admission at . With 2 L IV NS overnight, has improved to 1.7 11/25/2019. Likely secondary to dehydration. 1. Continue IV fluid hydration until this afternoon (11/25/2019) and then re- evaluate. (9) Hyponatremia Impression: (9) Hyponatremia Impression: Patient hyponatremic on admit, 125. After total 4L NS IV hydration, patient sodium has improved to 133. 11/25 sodium level 129. Patient given IV sodium phosphate. 1. Recheck CMP BID. (10) Bladder distension Impression: There is evidence of moderate bladder distention on the CT of the abdomen and pelvis. His urinalysis was a dirty catch unfortunately but he does not have symptoms of dysuria, urgency, hematuria. There is concern he may be retaining urine given these findings. We discussed that he might need straight catheterization but he would prefer to hold off given his urethral replacement in the past. Throughout the afternoon, the patient has had a significant difficulty emptying his bladder. 1. Patient would like to stand to void and thought that he could empty bladder more fully in this position. 2. May need to straight cath patient for urinary retention. 3. Patient onsider starting him on Flomax if he is unable to urinate (11) Insomnia Impression: Patient reports that he has had insomnia throughout his life. He currently uses vodka to help him sleep. In the past, he has taken Ambien and ativan to sleep. Discussed with patient that alcohol intake may be contributing to his insomnia. 1. Encourage increased activity and good sleep hygiene. 2. May consider referral to sleep lab for further recommendations.
[2019-11-26] MEDS: THIAMINE 100 MG TABLET PO SCH (11:21)
[2019-11-26] MEDS: FOLIC ACID 1 MG TABLET PO SCH (11:21)
[2019-11-26 13:45] LABS: HEPATITIS A IGM NON-REACTIVE (NON-REACTIVE); HEPATITIS B SURFACE ANTIGEN NON-REACTIVE (NON-REACTIVE); HEPATITIS C ANTIBODY NON-REACTIVE (NON-REACTIVE)
[2019-11-26] MEDS: INSULIN GLARGINE 300 UNIT/3 ML PEN SUBQ SCH (16:15)
[2019-11-26] MEDS: cefTRIAXone 1 GM in SODIUM CHLORIDE 0.9% MINIBAG 100 ML IV SCH (17:46)
[2019-11-26] MEDS: SODIUM CHLORIDE FLUSH 0.9% 10 ML SYRINGE IVP PRN (17:47)
[2019-11-27] MEDS ORDERED: INSULIN REGULAR HUMAN 300 UNIT/3 ML VIAL IVP ONE (00:16)
[2019-11-27] MEDS: SODIUM CHLORIDE FLUSH 0.9% 10 ML SYRINGE IVP SCH ×4 (00:30→23:40)
[2019-11-27 05:10] LABS: BASOPHILS % (AUTO) 0.3 %; EOSINOPHILS # (AUTO) 0.2 10^3/uL (0.0-0.7); EOSINOPHILS % (AUTO) 3.8 %; HGB - HEMOGLOBIN 10.4 g/dL (14.0-18.0); LYMPHOCYTES # (AUTO) 1.4 10^3/uL (1.5-3.5); LYMPHOCYTES % (AUTO) 23.7 %; MEAN CORPUSCULAR HEMOGLOBIN 34.1 pg (27.0-31.0); MEAN CORPUSCULAR HGB CONC 32.9 g/dL (32.0-36.0); MEAN CORPUSCULAR VOLUME 103.6 fL (80.0-94.0); MEAN PLATELET VOLUME 10.1 fL (7.4-11.4); MONOCYTES % (AUTO) 16.8 %; NEUTROPHILS # (AUTO) 3.1 10^3/uL (1.5-6.6); NEUTROPHILS % (AUTO) 53.5 %; PLT - PLATELET COUNT 56 10^3/uL (130-450); RED BLOOD COUNT 3.05 10^6/uL (4.70-6.10); RED CELL DISTRIBUTION WIDTH 14.5 % (12.0-15.0); WHITE BLOOD COUNT 5.7 x10^3/uL (4.8-10.8)
[2019-11-27 05:30] LABS: ALBUMIN 2.1 g/dL (3.2-5.5); BILIRUBIN,DIRECT 7.9 mg/dL (0.1-0.5); BILIRUBIN,TOTAL 13.7 mg/dL (0.2-1.0); CALCIUM 7.1 mg/dL (8.5-10.3); CREATININE 0.8 mg/dL (0.6-1.2); MAGNESIUM 2.4 mg/dL (1.7-2.8); PHOSPHORUS 1.9 mg/dL (2.5-4.6); TOTAL PROTEIN 6.1 g/dL (6.7-8.2)
[2019-11-27] MEDS: INSULIN GLARGINE 300 UNIT/3 ML PEN SUBQ SCH ×2 (06:36→16:42)
[2019-11-27] MEDS: PANTOPRAZOLE 40 MG TABLET PO SCH (06:36)
[2019-11-27] MEDS ORDERED: POTASSIUM CHLORIDE 20 MEQ TABLET PO ONE ×2 (07:19→09:23)
[2019-11-27] MEDS: THIAMINE 100 MG TABLET PO SCH (08:09)
[2019-11-27] MEDS: FOLIC ACID 1 MG TABLET PO SCH (08:09)
[2019-11-27] MEDS: INSULIN ASPART 300 UNIT/3 ML PEN SUBQ SCH ×7 (08:12→20:55)
[2019-11-27] MEDS ORDERED: POTASSIUM PHOSPHATE 21 MMOL in SODIUM CHLORIDE 0.9% 250 ML IV ONE (09:00)
--- NOTE | 2019-11-27 09:31 | PROVIDER PROGRESS NOTE ---
Subjective - Prog Note Date Prog Note Date: 11/27/19 Prog Note Time: 09:25 - Subjective Pt reports feeling: Improved Subjective: he gets up to bathroom bc can't urinate from bedside. still w slow, slow urine stream. urine organge brown. no fever. BP stable. Current Medications - Current Medications Current Medications: Active Medications Acetaminophen (Tylenol) 650 mg PO Q4HR PRN PRN Reason: Pain 1 to 4 Diphenhydramine HCl (Benadryl) 25 mg PO QPM PRN PRN Reason: Insomnia Folic Acid () 1 mg PO DAILY [facility] Last Admin: 11/27/19 08:09 Dose: 1 mg Ceftriaxone Sodium 1 gm/ (Sodium Chloride) 100 mls @ 200 mls/hr IV Q24H [facility] Last Infusion: 11/26/19 18:22 Dose: Infused Potassium Phosphate 21 mmol/ (Sodium Chloride) 257 mls @ 42.833 mls/hr IV ONCE ONE Stop: 11/27/19 14:59 Last Admin: 11/27/19 08:44 Dose: 42.833 mls/hr Insulin Aspart (Novolog) 8 unit SUBQ TIDWM [facility]; Protocol Last Admin: 11/27/19 08:12 Dose: 8 unit Insulin Aspart (Novolog) 2 - 10 unit SUBQ 0800,1200,1700,2100 [facility]; Protocol Last Admin: 11/27/19 08:13 Dose: 4 unit Insulin Glargine (Lantus Solostar) 12 unit SUBQ BIDAC [facility] Last Admin: 11/27/19 06:36 Dose: 12 unit Mineral Oil (Cavilon) 1 applic TOP PRN PRN PRN Reason: Skin Care Ondansetron HCl (Zofran Inj) 4 mg IVP Q6HR PRN PRN Reason: Nausea / Vomiting Ondansetron HCl (Zofran Odt) 4 mg TL Q6HR PRN PRN Reason: Nausea / Vomiting Oxycodone HCl (Roxicodone) 5 mg PO Q4HR PRN PRN Reason: Pain 5 to 7 Pantoprazole Sodium (Protonix) 40 mg PO QDAC [facility] Last Admin: 11/27/19 06:36 Dose: 40 mg Sodium Chloride (Normal Saline Flush 0.9%) 10 ml IVP PRN PRN PRN Reason: NEEDED PER PROVIDER ORDERS Last Admin: 11/26/19 17:47 Dose: 10 ml Sodium Chloride (Normal Saline Flush 0.9%) 10 ml IVP 0100,0900,1700 [facility] Last Admin: 11/27/19 08:14 Dose: 10 ml Thiamine HCl (Vitamin B-1) 100 mg PO DAILY [facility] Last Admin: 11/27/19 08:09 Dose: 100 mg No Known Home Medications 11/25/19 Objective - Vital Signs/Intake & Output Reviewed Vital Signs: Yes Vital Signs: Vital Signs x48h Temp Pulse Resp BP Pulse Ox 11/27/19 07:59 36.5 C 99 18 147/76 H 97 11/27/19 06:00 36.4 C L 99 20 145/77 H 96 Intake & Output: Intake & Output 11/24/19 11/25/19 11/26/19 11/27/19 23:59 23:59 23:59 23:59 Intake Total 2200 3918.200 2116.300 610 Output Total 1625 300 Balance 2200 2293.200 1816.300 610 - Objective General Appearance: positive: No acute distress, Alert, Other (jaudiced white male, 6'1', 124 KG) Eyes Bilateral: positive: PERRL Eyes: OU Scleral icterus ENT: positive: Pharynx nml Neck: positive: No JVD. negative: Stiff neck Respiratory: positive: Chest non-tender. negative: Wheezes, Rales, Rhonchi Cardiovascular: positive: Regular rate & rhythm. negative: Gallop/S4, Friction rub Abdomen: positive: Non-tender, No organomegaly, Nml bowel sounds, No distention, Other (large obese panus) Skin: positive: Warm, Dry. negative: Color nml Extremities: positive: Non-tender Neurologic/Psychiatric: positive: Oriented x3, CN's nml (2-12), Motor nml, Slurred/abnml speech (slow psychomotor responses) - Lab Results Fish Bones: 11/27/19 04:51 11/27/19 04:51 Other Labs: Lab Results x24hrs 11/27/19 11/27/19 11/25/19 Range/Units 04:51 04:51 05:05 WBC 5.7 (4.8-10.8) x10^3/uL RBC 3.05 L (4.70-6.10) 10^6/uL Hgb 10.4 L (14.0-18.0) g/dL Hct 31.6 L (42.0-52.0) % MCV 103.6 H (80.0-94.0) fL MCH 34.1 H (27.0-31.0) pg MCHC 32.9 (32.0-36.0) g/dL RDW 14.5 (12.0-15.0) % Plt Count 56 L (130-450) 10^3/uL MPV 10.1 (7.4-11.4) fL Neut # (Auto) 3.1 (1.5-6.6) 10^3/uL Lymph # (Auto) 1.4 L (1.5-3.5) 10^3/uL [place] # (Auto) 1.0 (0.0-1.0) 10^3/uL Eos # (Auto) 0.2 (0.0-0.7) 10^3/uL Baso # (Auto) 0.0 (0.0-0.1) 10^3/uL Absolute Nucleated RBC 0.02 x10^3/uL Nucleated RBC % 0.3 /100WBC Sodium 130 L (135-145) mmol/L Potassium 3.4 L (3.5-5.0) mmol/L Chloride 99 L (101-111) mmol/L Carbon Dioxide 23 (21-32) mmol/L Anion Gap 8.0 (6-13) BUN 23 H (6-20) mg/dL Creatinine 0.8 (0.6-1.2) mg/dL Estimated GFR (MDRD) 98 (>89) Glucose 213 H (70-100) mg/dL Calcium 7.1 L (8.5-10.3) mg/dL Phosphorus 1.9 L (2.5-4.6) mg/dL Magnesium 2.4 (1.7-2.8) mg/dL Total Bilirubin 13.7 H (0.2-1.0) mg/dL Direct Bilirubin 7.9 H (0.1-0.5) mg/dL AST 151 H (10-42) IU/L ALT 85 H (10-60) IU/L Alkaline Phosphatase 130 H (42-121) IU/L Total Protein 6.1 L (6.7-8.2) g/dL Albumin 2.1 L (3.2-5.5) g/dL Globulin 4.0 (2.1-4.2) g/dL Hepatitis A IgM Ab NON-REACTIVE (NON-REACTIVE) Hep Bs Antigen NON-REACTIVE (NON-REACTIVE) Hep B Core IgM Ab NON-REACTIVE (NON-REACTIVE) Hepatitis C Antibody NON-REACTIVE (NON-REACTIVE) Hep C Ab Signal/Cutoff 0.00 (<1.00) ABX Reporting Has patient been on IV antibiotics over the past 48 hours?: Yes Assessment/Plan - Problem List (1) Liver failure without hepatic coma Impression: Subacute but history. Current alcoholic hepatitis as well on labs. Alcohol abuse for 30 years. Patient reports drinking a bottle of wine and half gallon of vodka per day. Jaundice present, hepatomegaly and ascites present on Abd CT and Abdomenal US. So far his bilirubin has not moved much since being here. He started at 13.3, came down to 11.7, and is back up to 13.7 today. His AST has gone from 1 88-1 51. ALT is gone from 100-85.I have spoken to Dr. Starkey, who is [facility]. I faxed his notes, ultrasound and CT report. Hepatitis panel. His office will be calling the patient's directly to make an appointment for him. Long conversation with yesterday where myself and [employer] student were present . We discussed his [place]'s discrimination function 23.3, MELD 30 with 52.6% mortality in 3 months. He is incontinent of urine and stoolhere. She is scared. He is still denying he has an alcohol problem. Has been po litely and firmly declining referrals to support groups. She wonders what she needs to do at home. I explained to her that at this point in time he has to show the initiative. He doesn't acknowledge that he is a problem, and can't move forward with that. It is her anticipation that he will not drink anymore if she does not allow it. But I gently explained he is the one that gets in the car and drive to the store and buys alcohol, she does not. I recommended that she see AA herself to see if there is any support within the organization for the friends, family, spouses of alcoholics. She might find some useful coping techniques as well as good planning types for her and her daughter. In discussing this w SW this am in care conference, they will be referred to [facility] Home health for PT . But if she needs more help with physical part of bathing, etc, will need private duty hire. Qualifiers: Ascites presence: with ascites Qualified Code(s): K70.11 - Alcoholic hepatitis with ascites (2) Liver cirrhosis Impression: Liver cirrhosis with ABD US showing nodular contouring, liver enlargement, ascites and portal hypertension as well as varices present on US and CT, jaundice. Elevated LFTs, bilirubin and PT/INR, decreased albumin, AST>ALT, anemia, thrombocytopenia, hyponatremia, hyperferritinemia. Ammonia Hep A Ig MAb, Hep Bs antigen, Hep B Core IgM Ab, and Hep C antibody were all non-reactive, and Hep C Ab Signal/sutoff 0. Modified Xuhet-[id number]-Kufd Score is 12 points=Child Class C. MELD score 30. Ammonia 39.3 Qualifiers: Hepatic cirrhosis type: alcoholic cirrhosis Ascites presence: with ascites Qualified Code(s): K70.31 - Alcoholic cirrhosis of liver with ascites (3) Type 2 diabetes mellitus with hyperglycemia Impression: He denies a history of diabetes in the past but he was on metformin for a brief period of time. His blood glucose at admit is 468. No evidence of DKA. He has been started on Lantus, Skein Washer has seen him. We have been working on his Lantus and fixed dosing. on November 24 his glucose climb from 110-300. At that time I had given him Lantus 25 units the night before. Skein Washer was really concerned that was too much Lantus that she had we cut it back to 12 units. So on the evening of November 24 he got 12 units but on November 25 he was consistently in the 300s so he went to 12 units twice daily. With that he is now in the 200s. Plan: Increase Lantus to 18 units twice daily. We have discussed his request to take oral medications. He is asked to take a sulfonylurea and metformin. I have carefully explained to both he and his the metabolism aspect of these medications and that they may not be the best drug for his diabetes. They really are can have to learn how to do diabetic injections. She is willing to learn. (4) Alcohol abuse Impression: To monitor for alcohol withdrawal given his heavy alcohol use. So far has not been in withdrawal. Changed to po thiamine and folate yesterday afternoon. 1. Continue CIWA protocol and monitoring for delerium tremens 2. Conversation with patient's recommending that she seek support for herself due to patient's alcohol abuse. (5) Thrombocytopenia Impression: His platelets are low on admit 42>48>45>56 today and 125 approximately 1 year ago. Suspect secondary to liver cirrhosis. No evidence of obvious bleeding at this time. Plan: 1. SCDs for DVT prophylaxis. No chemical DVT prophylaxis given thrombocytopenia. 2. Watch from signs and symptoms of bleeding. 3. No indication for transfusion at the moment. (6) Elevated troponin Impression: Troponin I 50.4 at admit>40.4> 42.7> 42.8 by trend. No chest pain or pressure. Chest x-ray 11/24/2019 unremarkable. EKG 11/24/2019 with sinus tachycardia, left axis deviation and abnormal R wave progression. ECHO complete 11/24/2019 with LVEF 60-65%. Patient hemodynamically stable. Tachycardia has resolved. Presumed demand ischemia from the tachycardia. (7) Acute kidney injury Impression: Creatinine was elevated at 1.4 on admit. 1.1>1.0.0.8 today compared to his baseline of 0.8. Has come down with IV fluid hydration. His admit BUN was 44. now 23. Suspect this is prerenal injury secondary to dehydration. Urine output has been adequate but he struggles to get it out. 1. Stopped IV fluids 11/25 2. Monitor urine output. (8) Lactic acidosis resolved Impression: Lactic acid elevated on admission at . With 2 L IV NS overnight, has improved to 1.7 11/25/2019. Likely secondary to dehydration and liver failure. He has not been on metformin for months. (9) Hyponatremia Impression: Patient hyponatremic on admit, 125. After total 4L NS IV hydration, patient sodium has improved to 133. 11/25 sodium level 129. Patient given IV sodium ph osphate. 130 today 1. Recheck CMP BID. for Na, Phos and Mg. Phos is still low but Mg is nml. (10) Bladder distension Impression: There is evidence of moderate bladder distention on the CT of the abdomen and pelvis. His urinalysis was a dirty catch unfortunately but he does not have symptoms of dysuria, urgency, hematuria. There is concern he may be retaining urine given these findings. We discussed that he might need straight catheterization but he would prefer to hold off given his urethral replacement in the past. Throughout the first afternoon, the patient has had a significant difficulty emptying his bladder. By standing to void this is better but still w urinary retention symptoms. He declines straight cath. (11) Insomnia Impression: Patient reports that he has had insomnia throughout his life. He currently uses vodka to help him sleep. In the past, he has taken Ambien and ativan to sleep. Discussed with patient that alcohol intake may be contributing to his insomnia. 1. Encourage increased activity and good sleep hygiene. 2. May consider referral to sleep lab or sleep specialists for further recommendations.
[2019-11-27 14:10] LABS: ANA SCREEN NEGATIVE (NEGATIVE)
[2019-11-27] MEDS: SODIUM CHLORIDE FLUSH 0.9% 10 ML SYRINGE IVP PRN (17:30)
[2019-11-27] MEDS: cefTRIAXone 1 GM in SODIUM CHLORIDE 0.9% MINIBAG 100 ML IV SCH (17:30)
[2019-11-27 23:25] LABS: SMOOTH MUSCLE IGG AB <20 U
[2019-11-28 00:25] LABS: LIVER KIDNEY MICROSOME AB <20.0 U
[2019-11-28 05:49] LABS: ALBUMIN 2.1 g/dL (3.2-5.5); BILIRUBIN,DIRECT 8.5 mg/dL (0.1-0.5); BILIRUBIN,TOTAL 14.4 mg/dL (0.2-1.0); CALCIUM 7.3 mg/dL (8.5-10.3); CREATININE 0.7 mg/dL (0.6-1.2); MAGNESIUM 2.5 mg/dL (1.7-2.8); PHOSPHORUS 2.1 mg/dL (2.5-4.6); TOTAL PROTEIN 6.4 g/dL (6.7-8.2)
[2019-11-28] MEDS: INSULIN GLARGINE 300 UNIT/3 ML PEN SUBQ SCH (07:06)
[2019-11-28] MEDS: PANTOPRAZOLE 40 MG TABLET PO SCH (07:07)
[2019-11-28 08:11] VITALS: BP 128/73
[2019-11-28] MEDS: THIAMINE 100 MG TABLET PO SCH (08:47)
[2019-11-28] MEDS: FOLIC ACID 1 MG TABLET PO SCH (08:47)
[2019-11-28] MEDS: INSULIN ASPART 300 UNIT/3 ML PEN SUBQ SCH ×2 (08:48→08:49)
[2019-11-28] MEDS: SODIUM CHLORIDE FLUSH 0.9% 10 ML SYRINGE IVP SCH (08:57)
--- NOTE | 2019-11-28 10:11 | Discharge Plan ---
Discharge Plan Problem Reviewed?: Yes Disposition: Home Health Service Condition: Fair Prescriptions: Blood Sugar Diagnostic [Glucometer Strips] 1 each MC TID #1 bottle Blood-Glucose Meter [Glucometer] 1 each MC DAILY #1 each Insulin Aspart [NovoLOG] 8 unit SUBQ TIDWM #3 pen Insulin Glargine [Lantus Solostar] 12 unit SUBQ BIDAC #3 pen Nadolol 40 mg PO DAILY #30 tablet [place], Disposable [Needle] 1 each MC QID #1 pkg Thiamine [Vitamin B-1] 100 mg PO DAILY #30 tablet Diet: Low Sodium Activity Restrictions: Activity as Tolerated Shower Restrictions: No Driving Restrictions: No (you cannot drink and drive) Health Concerns: You were brought to the hospital by her . She had gone to visit her mother in [place] when she came back she found you weaker than usual, more confused than usual, and falling more than usual. You have a long history of alcohol abuse and we estimate that you are drinking 2 bottles of wine an day 1.75 L b ottle of vodka every other day. We found you to have severe alcoholic liver disease with the complications including: Portal hypertension, varicose veins of the esophagus (esophageal varices), ascites (water in your belly), and liver failure. You also had a urinary tract infection, were dehydrated. Electrolytes were abnormal and your sodium was low, potassium was low, magnesium and phosphorus were low. You have diabetes mellitus. It has been diet-controlled in the past. With this admission your glucose was over 400 and your glycosylated hemoglobin was 7.4%. Plan of Treatment: 1. You received IV fluids to treat the dehydration. 2. You were on a generalized protocol for alcohol withdrawal. You did not have much alcohol withdrawal and only developed a little bit of confusion requiring minimal medications. You will be sent home on replacement vitamins in patients who drink too much. We find that alcohol abuse inhibits the metabolism of folic acid and thiamine. As such she will be sent home on folic acid and thiamine vitamin supplement prescriptions. 3. For diabetes mellitus, unfortunately, you will not need to be on long-acting and acting insulin. In the 2 days before discharge you and your are shown how to give yourself insulin. You will be sent home with a prescription that has already been sent to [facility] for insulin pen, insulin needles, glucometer, test strips. 4. For the newly diagnosed liver failure from alcoholic liver disease, you have been started on a medication called propranolol. You will take it once a day. Initially only take half a tablet a day until you see the oil lease broker on December 02. He may adjust the medication at that time. 5. We have referred you to see [facility] gastroenterology. I spoke to Dr. Starkey on the phone. His office is called you and you have an appointment for December 02. I have already sent him copies of your records from this hospitalization. 6. Please see a primary care provider in follow-up. At this time it is Dr. Angel that was identified as your primary care provider. However you will be changing offices to [place] and will be seen in the offices of Nate Manuel or Jon Asher. I will make sure they get a copy of the discharge summary from this hospitalization. 7. You have been instructed to stop all alcohol use at this time.In calculating your meld score with liver failure, it was 30 points. This is associated with a 52% mortality rate in the next 3 months. If you have any help with surviving this disease, you cannot drink alcohol. 8. I have ordered home health physical therapy for you. The alcohol abuse, illness causing weakness, have all resulted in generalized deconditioning as well as balance issues. We call this gait ataxia. Physical therapy will work with you at home. They may request Occupational Therapy as well. 9. Even though your urine seemed to be contaminated with quite a bit of bacteria and skin cells, your culture was negative for any infection. As such I will not be sending you home on antibiotics for this. Care Goals: 1. To stay off alcohol altogether 2. To see your daughter graduate from [employer] 3. To hopefully avoid a liver transplant Follow-Up Care: Home Health - PT, Home Health - OT, [facility] [place] [facility] [place] Ed No Smoking: If you smoke, Please STOP! Call for help. Follow-up with: Mehdi Angel MD [Primary Care Provider] - Jon Asher MD [Provider Admit Priv/Credential] -
--- NOTE | 2019-11-28 17:22 | DISCHARGE SUMMARY ---
"Discharge Summary Discharge Date: 11/28/19 Code Status: Attempt Resuscitation Condition at Discharge: Fair Discharge Disposition: 06 Home Health Service - DIAGNOSES Discharge Diagnoses with Status of Each Condition: 1. Liver failure without hepatic coma 2. Cirrhosis of liver with ascites 4. Type 2 diabetes mellitus, uncontrolled, with hyperglycemia, on insulin 5. Hyponatremia 6. Urinary retention 7. Lactic acidosis 8. Chronic insomnia 9. Elevated troponin - HPI History of Present Illness: This is a 64-year-old male with a past medical history significant for alcohol abuse, hyperglycemia, insomnia who presents today complaining of worsening generalized weakness. He states that he fell this past Friday at home he was trying to get out of a couch. He denied any syncope or loss of consciousness. He does not recall hitting his head. He states he had difficulty getting off the floor after he fell but eventually was able to get up with assistance. On Friday his weakness had improved and he felt that he was doing well overall. The following day on Friday, his noticed that he had become weaker again but they attributed this to him ambulating more on Friday and to fatigue. Unfortunately, today he had another fall at home and his weakness continued to become more prominent. He reports neuropathy in his lower extremities been present for about 1 week. He also states he noticed edema in his lower extremities over the past 3 days. He has no fevers, chills, chest pain, dyspnea. He takes no medications at home except for occasional Aleve for pain and Benadryl on a nightly basis for his insomnia. He reports he drinks 2 glasses of wine and 3 glasses of vodka every night to help him sleep. He has been drinking on a daily basis for over 30 years. He reports he did quit about a year ago for 3 months after he had a fall where he hit his head and there was concern for subdural hematoma and he required to be admitted at [facility]. He states he quit alcohol for about 3 months after that but his insomnia became bothersome and so he returned to drinking. He has tried Ambien and Ativan in the past but this was many years ago. Reports no focal motor deficits or headaches. He reports no liver problems to his knowledge. He denies any family history of cirrhosis. He reports no Tylenol use, IV drug use, history of hepatitis, history of tattoos or transfusions. He also reports no diagnosis of diabetes. He states that many years ago he was prescribed metformin for elevated blood sugars while he was hospitalized but when he fol lowed up with his primary care provider, he was told his A1c was 5.9% and so he stopped the metformin. He states he has been eating well these past few days. He has been drinking plenty of water. Denies any increased urinary frequency, dysuria, urgency, hematuria. He reports no difficulty urinating. He states he had a urethral replacement back in 2008 after he had urethral strictures. He no longer sees a urologist. We did discuss goals of care and he would like to be a full code at the moment. 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 Chest x-ray with normal single view chest. 2. Abdominal pelvis CT showing normal-sized liver with evidence of diffuse steatosis. Small volume ascites. Mild paraesophageal and perisplenic varices. Small recanalized umbilical vein. Portal vein hypertension. 12 mm gallstone. No acute cholecystitis. Bladder is moderately distended. 3. Abdominal ultrasound shows large liver that is echogenic with a nodular contour. Probable cirrhosis. Cholelithiasis without gallbladder wall thicken ing. Small volume ascites. 4. Blood cultures negative after 2 days, 2 urine specimens negative urine culture. 5. Ammonia level 32. 6. MAYA, smooth muscle antibody, liver kidney microsomal antibody negative. 7. Urine tox screen negative for all substances. 8. Acute hepatitis panel for a B and C all negative and nonreactive. 9. Echocardiogram with mild concentric left ventricular hypertrophy. Left ventricular systolic function normal with ejection fraction 60 to 65%. No valvular heart disease. Right ventricular systolic pressure at rest is 20 mmHg. - HOSPITAL COURSE Hospital Course: He was initially treated as a urinary tract infection, liver failure causing obtundation and encephalopathy. We were worried about alcohol withdrawal but he did not require substantial doses of benzodiazepines. He gradually improved with IV hydration, nutrition. We did give empiric antibiotics because we thought that he had a UTI with urine that did have pyuria and bacteria. However urine cultures were negative. He has urinary retention and requires quite a bit for him to get up and urinate. However he refuses straight cath since he has had urethral reconstruction in the past. While he recognizes that his alcohol abuse has been a problem. He does not acknowledge that he has an alcohol problem In spite of the fact that he drinks 2 bottles of wine and a gallon of vodka every 2 days. He rationalizes that he has severe chronic insomnia and that is why he needed to drink. He and his have preliminary discussions to do with regards to his advance directives. While he is a full code, he is leaning more to a DO NOT RESUSCITATE because he hates being in the hospital and realizes he really does not want to be here to have procedures done. We discussed that his meld score is 30 with a mortality rate of 52% in the next 3 months if he does not stop drinking. He states that he had will stop drinking. Social work met with several times to give her avenues of support. 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 I ordered home health for PT and OT due to his weakness, and gait ataxia. I also started him on Lantus and short acting insulin before meals. He was very resistant to this but I carefully explained to him that I cannot give him metformin or sulfonylurea (which he asked for) because of his end-stage liver disease. Both he and his received intensive training from the nurses and how to give himself insulin depending on what his glucose was. I also referred him to diabetic classes. Hyponatremia remained on his lab work. He was admitt ed at 125 and was 130 by the time of discharge. Acute kidney injury with a BUN of 49 a creatinine 1.4 was present on admission. After hydration and antibiotics he was 17 and 0.7 at discharge. Liver enzymes did not substantially change. At discharge his total bili is 14.4. Direct bili 8.5. AST 148, ALT 90, alk phos 149. Vitamin B12 is 1207, and folate is 11.44. I have started him on propranolol for the esophageal varices. I am not giving him Aldactone at this time. I have contacted [facility] gastroenterology and if sent over all substantial notes, studies, serologies for them to review. He has an appointment with them December 02. He is also in the process of getting a new primary care provider. He used to go to Dr. Angel in [place]. He will be changing to Dr. Jon Asher at [facility]. He is discharged in stable condition. I am not sending him home on antibiotics. Temperature is 36 9, pulse is 96, blood pressure 128/73, respirations 18 and is 97% on room air. He is a 6 foot 1 inch tall male who weighs 124 kg. He has male pattern baldness, disheveled appearance with a smith. Shotty anterior cervical adenopathy. Diminished breath sounds at the bases but no increased respiratory effort. PMI normally placed with a regular rate and rhythm. A protuberant obese abdomen that has a very minimal fluid wave in the dependent portion of his abdomen when he stands up and I palpate. He does have hepatomegaly. Extremities have trace edema. There is ataxia when he walks in the room and as such I am ordering home health with PT and OT. Greater than 30 minutes was spent coordinating discharge. - ALLERGIES Allergies/Adverse Reactions: Allergies Allergy/AdvReac Type Severity Reaction Status Date / Time No Known Drug Allergies Allergy Verified 12/20/18 21:13 - MEDICATIONS Home Medications: Ambulatory Orders Medication Instructions Recorded Confirmed Blood Sugar Diagnostic [Glucometer 1 each TID #1 bottle 11/28/19 Strips] Blood-Glucose Meter [Glucometer] 1 each DAILY #1 each 11/28/19 Folic Acid 1 mg PO DAILY tablet 11/28/19 Insulin Aspart [NovoLOG] 8 unit SUBQ TIDWM #3 pen 11/28/19 Insulin Glargine [Lantus Solostar] 12 unit SUBQ BIDAC #3 pen 11/28/19 Nadolol 40 mg PO DAILY #30 tablet 11/28/19 [place], Disposable [Needle] 1 each QID #1 pkg 11/28/19 Thiamine [Vitamin B-1] 100 mg PO DAILY #30 tablet 11/28/19 - LABS Result Diagrams: 11/27/19 04:51 11/28/19 04:58"
== END 2019-11-28 11:57 | disposition home or self-care (01) | DRG 433 ==
LOC: EDUNIT# → ED 13:46 → MS2 18:46
PROVIDERS: ADMIT Specialist; ATTEND Specialist
DX: K70.40 Alcoholic hepatic failure without coma (principal); I85.10 Secondary esophageal varices without bleeding; E87.1 Hypo-osmolality and hyponatremia; N17.9 Acute kidney failure, unspecified; E87.2 Acidosis; K76.6 Portal hypertension; K70.31 Alcoholic cirrhosis of liver with ascites; K70.11 Alcoholic hepatitis with ascites; F10.10 Alcohol abuse, uncomplicated; E11.65 Type 2 diabetes mellitus with hyperglycemia; E11.40 Type 2 diabetes mellitus with diabetic neuropathy, unspecified; R33.9 Retention of urine, unspecified; D69.59 Other secondary thrombocytopenia; E86.0 Dehydration; G47.00 Insomnia, unspecified; R26.0 Ataxic gait; R79.89 Other specified abnormal findings of blood chemistry; Z91.81 History of falling
CPT/HCPCS: 36415; 71045; 74177; 76700; 80048; 80053; 80061; 80074; 80076; 80306; 80320; 81001; 82009; 82140; 82390; 82550; 82607; 82728; 82746; 82803; 83036; 83516; 83605; 83735; 84100; 84300; 84484; 85025; 85610; 86038; 86376; 87040; 87086; 93005; 93306; 96361; 96365; 97116; 97161; 97530; 99284; 99285; A6250; A9270; J1815; J3370; J3411; Q9967; 81003; 83721

== ENCOUNTER 2019-12-17 18:05 | Outpatient (CLI) | payer BC ==
--- NOTE | 2019-12-17 19:28 | CONSULTATION NOTE ---
Palliative Care Consultation - Referral Referring Provider: Karmen Wilson MD Time of Visit: [id number] Referral setting: Home Referral Reason: Alcoholic Cirrhosis of Liver with Ascites/Peripheral Neuropathy - Information Sources Records reviewed: Previous records reviewed History/Review of Systems obtained from: Patient, Family ( Kerry at visit) Exam limitations: No limitations - History of Present Illness Brief History of Present Illness: This is a 64-year-old gentleman who has past medical history significant for alcohol abuse, was admitted from [facility] 4-11/27 for liver failure without hepatic coma, cirrhosis of the liver with ascites, type 2 diabetes uncontrolled, urinary retention, and worsening functional status. He was discharged, has continued to do fairly poorly, with weakness, his diabetes is better controlled, he was able to establish for primary care, and did have a follow-up with Dr. Ndiaye at [facility] gastro[facility]ology. He did see him on 12/02, for an evaluation, no significant interventions were offered at this point in time, was told to continue with abstinence, sodium restriction, did have a discussion regarding endoscopy to rule out esophageal varices, but of significance was he did have repeat labs at that point in time was 15.8 bilirubin, and 12.8 when bilirubin direct. He is scheduled to have repeat labs today, and follow-up with GI in the next couple weeks, though things have been complicated with the Covid19. Patient has been eating and drinking fluids in adequate amounts, has had increased weakness, has been sleeping more. He does present though with able to engage in conversation, does have some insight into the seriousness of his illness, is hoping for the best, and that his liver will recover some now that he is not drinking. Patient does appear with moderate jaundice, sclera are icteric, does have petechiae in his lower extremities, and does present with severe tot ascites, as well as pitting edema from his toes up to mid thigh. He does report this is worsened in severity, he has some increased pain and discomfort, unclear if describing urinary retention, as he does have relief sitting down, but more discomfort sitting flat on his scrotum and issue him. He reports he is voiding, but unable to tell amounts, as he is having mixed inter mittent loose stool. He reports his stool ranges from brown, to light colors, and denies watery diarrhea but frequent stooling. His main complaint today, is worsening peripheral neuropathy, reports sharp shooting pains in his feet, increasing abdominal pain and pressure across his lower abdomen, and pain in his right upper quadrant and tenderness around where his liver is. He also has an area of pain on his right thigh, which he uses a topical roll-on 4. He did trial short-term a few gabapentin without any relief, and is hoping to find something that will be more supportive for pain relief. Patient lives at home with his , they have been for 25 years, their daughter is 20 years his home as well. They are concerned about his worsening health, though it is unclear as far as progression of severity of his disease. His perception is it worsened about the time of his first fall in November, as had enlarged abdomen, but not the tautness or ascites. 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 Support System: Patient is lived at home since being retired, on [facility] for about 3 years. He and his have been for 25 years. 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 His daughter is currently home from college given the recent restrictions of coronavirus. They are not well connected in the community, though he does have a neighbor who is very supportive. Family History - Family History Family History: Mother: ( in 80's unknown; father at 57 unknown causes), Father: , Brother: Alive and Well, Diabetes, Type 2 Medications/Allergies - Medications Home Medications: Ambulatory Orders Medication Instructions Recorded Confirmed Folic Acid 1 mg PO DAILY tablet 11/28/19 12/18/19 Insulin Aspart [NovoLOG] 8 unit SUBQ TIDWM #3 pen 11/28/19 12/18/19 Nadolol 40 mg PO DAILY #30 tablet 11/28/19 12/18/19 Thiamine [Vitamin B-1] 100 mg PO DAILY #30 tablet 11/28/19 12/18/19 Furosemide 20 mg PO DAILY 12/18/19 12/18/19 Insulin Glargine [Lantus Solostar] 12 units SUBQ BID 12/18/19 12/18/19 Pregabalin 50 mg PO TID 12/18/19 12/18/19 Spironolactone 50 mg PO DAILY 12/18/19 12/18/19 - Allergies Allergies/Adverse Reactions: Allergies Allergy/AdvReac Type Severity Reaction Status Date / Time No Known Drug Allergies Allergy Verified 12/20/18 21:13 Review of Systems - Constitutional Constitutional: reports: Fatigue (worsening), Poor appetite, Weight gain (from GI visit has gained 5 pounds; though reports eating less susupect more fluid gain). denies: Fever - Eyes Eyes: reports: Blurred vision, Vision loss - Cardiovascular Cardiovascular: reports: Edema (worsening LE), Decr. exercise tolerance - Respiratory Respiratory: reports: SOB with exertion. denies: Cough, SOB at rest - Gastrointestinal Gastrointestinal: reports: Diarrhea (describes as loose stools;), Bloating, Early satiety. denies: Nausea - Genitourinary Genitourinary: reports: Other (increase difficulty with voiding; unable to quantify) - Musculoskeletal Musculoskeletal: reports: Stiffness, Muscle weakness, Assistive devices (has cane; unable to do PT with COVID19 restrictions) - Integumentary Integumentary: reports: Rash, Dryness - Neurological Neurological: reports: General weakness, Dizziness (mild), Abnormal gait (gait ataxic) - Psychiatric Psychiatric: reports: Depression, Anxiety - Endocrine Endocrine: reports: Diabetes type 2 (reports BS in good range; using SS appropriately) - Hematologic/Lymphatic Hematologic/Lymphatic: reports: Bruising, Petechiae (bilateral feet), Bleeding tendencies - All Other Systems All Other Systems: reports: Reviewed and negative Physical Exam - Vital Signs Temperature: 95.9 C Pulse Rate: 53 Respiratory Rate: 18 O2 Saturation: 96 (ra @ rest) Blood Pressure: 102/64 - Physical Exam General Appearance: positive: Alert, Mild distress (with pain;) Eyes Bilateral: positive: No scleral icterus (scleral icterus; 12/07 Cruzito 15.8) ENT: positive: No signs of dehydration Neck: positive: No JVD, Trachea midline Cardiovascular: positive: Regular rate & rhythm Respiratory: positive: No respiratory distress, Breath sounds nml. negative: Wheezes, Rales, Rhonchi Abdomen: positive: Tenderness, Distended, Taut, Obese Skin: positive: Jaundice, Dryness, Bruising, Rash Extremities: positive: Pedal edema (pitting edema up to mid thigh) Neurologic/Psychiatric: positive: Oriented x3, Mood/affect nml, Weakness, Sensory loss (LE), Flat affect Palliative Care - POLST Patient has POLST: No POLST Status: Full Code Pain: Pain worsening, Location Tiredness/Fatigue: Moderate (4-6) Drowsiness/Sedation: Mild (1-3) Nausea: None Anorexia: Moderate (4-6) Dyspnea: Moderate (4-6) (with activity 0 @ rest) Depression: Mild (1-3) Anxiety: Moderate (4-6) Feelings of wellbeing/Perceived Quality of Life: Fair, Worsening Sleep: Variable sleep pattern Performance Status: Patient having worsening fatigue, does have long flight of stairs, does find it more difficult to get up and down. Does tend to stay in bed, is more sedentary. Had had a physical therapy referral, but has not been able to follow through with Tess. Patient has been able to attend his ADLs. - Palliative Care Discussion: admit me at the door, reports patient was quite reluctant to meet with palliative care. He is very anxious about what is going on, has deferred many of the conversations and decisions with the providers to her. Discussed we could certainly meet and worries at, and developed rapport. In the meeting with the patient he does understand the seriousness of his illness, he is hoping that his liver will heal. He is somewhat surprised he is not improved with his absence of drinking. 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 We did review the symptoms he is currently having, in the context of his illness, he is hoping for better pain control, improved functional status, and wanting to focus on getting well. Did discuss the role of palliative care for pain and symptom management, continue to help coordinate care and anticipatory guidance. Results - Lab Results Lab results reviewed: Yes Lab and Imaging Results: Labs drawn on 318 show TIBC 133, iron 74, iron saturation 56, transferrin 104. Hepatic function panel protein 6.3, albumin 2.4, bilirubin 15.8, direct bilirubin 12.81, alkaline phosphate 177, AST 160 ALT 106 INR 1.4 and pro-thigh open 14.2 alpha-1 antitrypsin pain serum was 222. Patient was due to have his labs redrawn today, when spoke with GI doc, wrote prescription to add PT and INR. Patient to have drawn at [facility] Impression and Recommendations - Palliative Care Impression: This is a 64-year-old gentleman with known alcoholic hepatitis with ascites, with worsening bilirubin, and increased lower extremity edema. Patient at high risk for urinary retention, rehospitalization, and presents with moderate to high symptom burden. Palliative care to provide support regarding pain and symptom management, coordination of care, and anticipatory guidance. Recommendations/Counseling Done: 1. Ascites/lower extremity edema. Patient with increased weight gain of 5 to 10 pounds since GI appointment on 318. Call to Dr. Harrison, in consult, Recommended initiation of furosemide 20 mg and Spironolactone 50 mg. Prescription called into [facility] pharmacy, will not be able to initiate until next day. Discharge creatinine was 0.7. Patient has been instructed to weigh daily, and will get follow-up labs in 1 week. Unclear if his current labs ordered for today include BMP. 2. History of urinary retention. Patient at high risk for urinary retention, is having some subtle signs with worsening discomfort. Patient is been instructed to monitor urine output as best as able, if does not improve will need to go to ED. Patient denies any pain or dysuria, does admit to decreased output but unable to quantify. Given patient's history, they need a referral to urology. Does appear there were concerns with his last hospitalization. 3. Peripheral neuropathy. Patient had trialed gabapentin few doses without any success. Counseling provided regarding use of gabapentin needs to be more long- term and tapered up. Patient's current prescription is . Given patient's severity of his pain, will initiate pregabalin for more quick response and able to titrate accordingly. At this point in time patient does not want to trial opioids. Given his liver disease, most appropriate would most likely be hydromorphone or methadone. 4. Generalized weakness. Patient is wanting strengthening program, discussed progressive ambulation, encouraged given his peripheral neuropathy and unsteady gait, to get walking poles as he does not want to use a walker. Encouraged to start with short distances more frequently and build up. May revisit home PT, given patient's goals. 5. Alcoholic hepatitis with ascites. Patient at high risk for rehospitalization, patient's bilirubin continues to worsen, they are pending labs for today. Patient's meld score in the hospital on admit was 30. Given his most recent labs it is 24. Which translates into 19.6% estimated 3-month mortality. Patient remains quite fragile, he is abstaining from alcohol, has not had any withdrawal symptoms. Patient to continue with GI MD support report given of concerns, discussion regarding endoscopy and recommendations regarding varices. Counseling provided regarding concern for ascites, worsening edema, reviewed if patient had any signs or symptoms of bleeding, worsening mental status or weakness, or signs or symptoms of infection needed to access ED support. 6. Advanced care planning. Patient currently does not have any advanced care planning documents, given patient's anxiety and multiple issues with symptom management and coordination of care today, this will be deferred to next visit. Did spend time establishing rapport, eliciting patient's short term goals. Plan for follow-up on pending labs, prescriptions ordered via [facility] pharmacy to be picked up tomorrow, written instructions provided to check blood pressure twice daily for 1 week then daily, daily weights, along with monitoring his blood sugars. We will follow-up Friday after labs available, and set visit for end of week given severity of patient's illness. Time Spent: 90 minutes with greater than 50% of this done in counseling and review of pain and symptom management coordination of care with gastroenterology, and anticipatory guidance.
== END 2019-12-17 18:06 | disposition home or self-care (01) ==
LOC: PC 18:05
PROVIDERS: ATTEND Nurse Practitioner Adult Health
DX: Z51.5 Encounter for palliative care (principal); K70.31 Alcoholic cirrhosis of liver with ascites; K70.11 Alcoholic hepatitis with ascites; R39.9 Unspecified symptoms and signs involving the genitourinary system; R53.1 Weakness; R53.83 Other fatigue; E11.42 Type 2 diabetes mellitus with diabetic polyneuropathy; R19.7 Diarrhea, unspecified; Z79.4 Long term (current) use of insulin; Z79.899 Other long term (current) drug therapy; Z87.448 Personal history of other diseases of urinary system
CPT/HCPCS: 99345

== ENCOUNTER 2019-12-18 08:50 | Outpatient (CLI) | payer BC | END 2019-12-18 08:51 | disposition critical access hospital (66) | LOC: EMS 08:50 | PROVIDERS: ATTEND Surgery | DX: R41.0 Disorientation, unspecified (principal); R14.0 Abdominal distension (gaseous); R17 Unspecified jaundice | CPT/HCPCS: A0425; A0429 ==

== ENCOUNTER 2019-12-18 09:08 | Inpatient (IN) | payer BC ==
--- NOTE | 2019-12-18 09:16 | ED Physician Documentation ---
PD HPI ALTERED MENTAL STATUS - Stated complaint Stated Complaint: ALOC - History obtained from History obtained from: Patient, EMS - History of Present Illness Timing - onset: How many months ago (The patient does have history of longstanding alcoholism with apparently some liver disease but started with just jaundice notable in the last month to month and a half. He was hospitalized earlier this month for jaundice, general weakness and syncopal episode. He was admitted in the hospital here with the some fluids and evaluation of the syncope without any obvious cardiac involvement. He did have some apparent higher blood pressure and was started on a beta-bennett and his heart rate was noted to be 80s or 90s during the prior visit.) Timing - details: Gradual onset, Still present (Report from the medics and his by phone are that he has had significantly decreased urine output over the last 2 to 3 days with increased edema and increased confusion and general weakness over the last day in particular. He had been hospitalized recently for the jaundice and diagnosed with liver failure.) Quality / character: Less responsive, Confused Associated symptoms: Dyspnea, General weakness. No: Fever, Headache, Cough, NVD Contributing factors: No: Anticoagulated, Intoxicated (The white states he has not drank for the last month since being diagnosed with the liver failure and jaundice.) Basline status: Alert and oriented X 3, Ambulatory Recently seen: Clinic (The states he was seen by gastroenterology in [place] who stated a poor prognosis and suggested some diuretic and medicine for the bilirubin but did not prescribe any medicines. They did have a palliative care consult by Abbie Rodriguez yesterday but her note is not completed as yet. The states she said some diuretic and other medicines what would be prescribe a bowl and the emphasis would be on palliative care.), Emergency Dept, Admitted Review of Systems Unable to obtain: AMS, Other (info from his ) Constitutional: denies: Fever Nose: denies: Rhinorrhea / runny nose, Congestion Throat: denies: Sore throat Respiratory: denies: Cough GI: reports: Abdominal Swelling. denies: Constipation, Diarrhea : reports: Other (Minimal urine output for the last 2 to 3 days according to the .) Skin: reports: Other (bovious jaundice) Neurologic: reports: Generalized weakness, Confused, Altered mental status, Head injury (Reportedly did have some impact of his head when he fell several weeks ago.). denies: Headache Endocrine: reports: Weight gain Immunocompromised: denies: Immunocompromised PD PAST MEDICAL HISTORY - Past Medical History Cardiovascular: None Respiratory: None Neuro: Peripheral neuropathy Endocrine/Autoimmune: None GI: None : Other (Urethral strictures) HEENT: None Psych: None Musculoskeletal: None Derm: None - Past Surgical History Past Surgical History: Yes Ortho: Other /SPEECH/LANGUAGE THERAPIST: Other - Present Medications Home Medications: Ambulatory Orders Medication Instructions Recorded Confirmed Folic Acid 1 mg PO DAILY tablet 11/28/19 12/18/19 Insulin Aspart [NovoLOG] 8 unit SUBQ TIDWM #3 pen 11/28/19 12/18/19 Nadolol 40 mg PO DAILY #30 tablet 11/28/19 12/18/19 Thiamine [Vitamin B-1] 100 mg PO DAILY #30 tablet 11/28/19 12/18/19 Furosemide 20 mg PO DAILY 12/18/19 12/18/19 Insulin Glargine [Lantus Solostar] 12 units SUBQ BID 12/18/19 12/18/19 Pregabalin 50 mg PO TID 12/18/19 12/18/19 Spironolactone 50 mg PO DAILY 12/18/19 12/18/19 - Allergies Allergies/Adverse Reactions: Allergies Allergy/AdvReac Type Severity Reaction Status Date / Time No Known Drug Allergies Allergy Verified 12/20/18 21:13 - Social History Does the pt smoke?: No Smoking Status: Never smoker Does the pt drink ETOH?: Yes Does the pt have substance abuse?: No - Immunizations Immunizations are current?: No Immunizations: TDAP >10years/unknown PD ED PE NORMAL - Vitals Vital signs reviewed: Yes - General General: Well developed/nourished, Other (General edema noted particularly in the legs but also some in the upper extremities. 2+ edema in both legs. There is some abdominal distention without tenseness. Shifting dullness is noted to percussion.) - HEENT HEENT: Atraumatic, PERRL, EOMI, Other (Obvious scleral icterus) - Neck Neck: Supple, no meningeal sign, No adenopathy, No bruit, Other (Some JVD is noted with him and lying supine.) - Cardiac Cardiac: No murmur. No: RRR (Regular but bradycardic in the high 40s to 50s.) - Respiratory Respiratory: No: Clear bilaterally (Faint crackles at both bases.) - Abdomen Abdomen: Other (His abdomen is distended. Liver feels enlarged and nodular to palpation. Bowel sounds are diminished. There is shifting dullness.) - Male Male : Deferred - Rectal Rectal: Deferred - Back Back: No CVA TTP - Derm Derm: No: Normal color - Neuro Neuro: No: Alert and oriented X 3 (He is able to open his eyes to tactile and verbal. He is slow to answer questions and his answers are very simple. He is oriented to person and place but not time. He has poor memory of his prior hospitalization) Eye Opening: To Voice Motor: Obeys Commands Verbal: Confused GCS Score: 13 Results - Vitals Vitals: Vital Signs - 24 hr 12/18/19 12/18/19 12/18/19 09:10 09:16 09:30 Temperature 91.2 C H Heart Rate 49 L 49 L 49 L Respiratory 20 16 18 Rate Blood Pressure 114/80 106/69 O2 Saturation 16 L 100 99 12/18/19 12/18/19 12/18/19 10:00 10:30 11:00 Temperature 32.9 C L 33.2 C L Heart Rate 50 L 50 L 50 L Respiratory 16 16 18 Rate Blood Pressure 104/75 102/70 107/70 O2 Saturation 99 100 96 12/18/19 12/18/19 11:42 12:01 Temperature 33.2 C L 33.2 C L Heart Rate 52 L 51 L Respiratory 16 16 Rate Blood Pressure 92/68 93/64 O2 Saturation 100 99 Oxygen O2 Source Room air - Labs Labs: Laboratory Tests 12/18/19 12/18/19 12/18/19 09:20 09:20 09:20 WBC 15.7 H RBC 3.49 L Hgb 12.3 L Hct 35.6 L MCV 102.0 H MCH 35.2 H MCHC 34.6 RDW 15.5 H Plt Count 219 MPV 11.8 H Neut # (Auto) 12.1 H Lymph # (Auto) 1.8 Kane # (Auto) 1.1 H Eos # (Auto) 0.4 Baso # (Auto) 0.0 Absolute Nucleated RBC 0.00 Nucleated RBC % 0.0 PT 19.4 H INR 1.8 H APTT 40.8 H Sodium 131 L Potassium 3.9 Chloride 103 Carbon Dioxide 14 L Anion Gap 14.0 H BUN 98 H* Creatinine 6.6 H Estimated GFR (MDRD) 9 L Glucose 133 H Lactic Acid Calcium 7.5 L Magnesium 2.7 Total Bilirubin 15.3 H AST 150 H ALT 113 H Alkaline Phosphatase 174 H Ammonia B-Natriuretic Peptide Total Protein 6.7 Albumin 1.8 L Globulin 4.9 H Albumin/Globulin Ratio 0.4 L Lipase 51 TSH Urine Color Urine Clarity Urine pH Ur Specific Tracy Urine Protein Urine Glucose (UA) Urine Ketones Urine Occult Blood Urine Nitrite Urine Bilirubin Urine Urobilinogen Ur Leukocyte Esterase Urine RBC Urine WBC Ur Squamous Epith Cells Urine Bacteria Ur Microscopic Review Urine Culture Comments Ethyl Alcohol 12/18/19 12/18/19 12/18/19 09:20 09:20 09:20 WBC RBC Hgb Hct MCV MCH MCHC RDW Plt Count MPV Neut # (Auto) Lymph # (Auto) Kane # (Auto) Eos # (Auto) Baso # (Auto) Absolute Nucleated RBC Nucleated RBC % PT INR APTT Sodium Potassium Chloride Carbon Dioxide Anion Gap BUN Creatinine Estimated GFR (MDRD) Glucose Lactic Acid 1.6 Calcium Magnesium Total Bilirubin AST ALT Alkaline Phosphatase Ammonia 138.1 H* B-Natriuretic Peptide 344 H Total Protein Albumin Globulin Albumin/Globulin Ratio Lipase TSH Urine Color Urine Clarity Urine pH Ur Specific Tracy Urine Protein Urine Glucose (UA) Urine Ketones Urine Occult Blood Urine Nitrite Urine Bilirubin Urine Urobilinogen Ur Leukocyte Esterase Urine RBC Urine WBC Ur Squamous Epith Cells Urine Bacteria Ur Microscopic Review Urine Culture Comments Ethyl Alcohol 12/18/19 12/18/19 12/18/19 09:20 09:20 10:30 WBC RBC Hgb Hct MCV MCH MCHC RDW Plt Count MPV Neut # (Auto) Lymph # (Auto) Kane # (Auto) Eos # (Auto) Baso # (Auto) Absolute Nucleated RBC Nucleated RBC % PT INR APTT Sodium Potassium Chloride Carbon Dioxide Anion Gap BUN Creatinine Estimated GFR (MDRD) Glucose Lactic Acid Calcium Magnesium Total Bilirubin AST ALT Alkaline Phosphatase Ammonia B-Natriuretic Peptide Total Protein Albumin Globulin Albumin/Globulin Ratio Lipase TSH 17.79 H Urine Color DARK YELLOW Urine Clarity SL. CLOUDY Urine pH 5.5 Ur Specific Tracy 1.025 Urine Protein NEGATIVE Urine Glucose (UA) NEGATIVE Urine Ketones NEGATIVE Urine Occult Blood NEGATIVE Urine Nitrite NEGATIVE Urine Bilirubin MODERATE H Urine Urobilinogen 0.2 (NORMAL) Ur Leukocyte Esterase TRACE H Urine RBC 0-5 Urine WBC 6-10 H Ur Squamous Epith Cells MANY Squamous H Urine Bacteria Few Ur Microscopic Review INDICATED Urine Culture Comments NOT INDICATED Ethyl Alcohol < 5.0 - Rads (name of study) head CT Radiology: Prelim report reviewed (No intracranial hemorrhage.) PD MEDICAL DECISION MAKING - ED course Complexity details: reviewed results (The patient has similar level of bilirubin and liver enzymes. However his ammonia level is quite elevated at 139. His creatinine is also markedly elevated at 6.6. Hard to tell exactly the acuity but likely just the last couple of days as his states he had not had any significant urine output for the last 2 to 3 days. He does appear to be in hepatorenal failure. I talked with the and his CODE STATUS is DNI DNR and they had been evaluating with palliative care consult yesterday. This point I do not necessarily see the obvious intervention of dialysis in the setting of hepatic failure anyway. The is still considering that intervention. I told her the initial treatment could be diuretics and fluid resuscitation to try to stimulate the renal function along with lactulose for the ammonia and see how much improvement there is. I talked with the hospitalist Dr. Askew who is willing to admit the patient for treatment given the CODE STATUS and see how much improvement there is. His condition is quite grim.), considered differential (He is quite lethargic but arousable and confused. He does not appear to be hypoventilating. He is quite jaundiced. Most likely hepatic encephalopathy. Will check labs and ammonia level. His bilirubin level has been 12-16 over the last month. His ammonia level was 33 earlier in the month and had not been rechecked. Likely it has been creeping up as he is not on any current medications of lactulose nor diuretics. He had a palliative care consult yesterday with his staying Abbie Rodriguez was going to initiate some of those medicines but had not prescribed any as yet. He is now more lethargic the last day or 2. No fevers. He has had increased abdominal distention and general edema.), d/w patient Departure - Departure Disposition: 66 [facility] DC/Xfer Clinical Impression: Hepatic encephalopathy, Hepatorenal failure, Lethargic Renal failure, acute Qualifiers: Acute renal failure type: unspecified Qualified Code(s): N17.9 - Acute kidney failure, unspecified Edema Qualifiers: Edema type: unspecified Qualified Code(s): R60.9 - Edema, unspecified Condition: Stable Discharge Date/Time: 12/18/19 13:26
[2019-12-18] MEDS ORDERED: SODIUM CHLORIDE 0.9% 1,000 ML IV ONE (09:39)
[2019-12-18] MEDS ORDERED: LACTULOSE 10 GM /15 ML UDC PO STA (09:40)
[2019-12-18 09:49] LABS: BASOPHILS % (AUTO) 0.2 %; EOSINOPHILS # (AUTO) 0.4 10^3/uL (0.0-0.7); EOSINOPHILS % (AUTO) 2.8 %; HGB - HEMOGLOBIN 12.3 g/dL (14.0-18.0); LYMPHOCYTES # (AUTO) 1.8 10^3/uL (1.5-3.5); LYMPHOCYTES % (AUTO) 11.3 %; MEAN CORPUSCULAR HEMOGLOBIN 35.2 pg (27.0-31.0); MEAN CORPUSCULAR HGB CONC 34.6 g/dL (32.0-36.0); MEAN PLATELET VOLUME 11.8 fL (7.4-11.4); MONOCYTES # (AUTO) 1.1 10^3/uL (0.0-1.0); MONOCYTES % (AUTO) 7.3 %; NEUTROPHILS # (AUTO) 12.1 10^3/uL (1.5-6.6); NEUTROPHILS % (AUTO) 77.4 %; PLT - PLATELET COUNT 219 10^3/uL (130-450); RED BLOOD COUNT 3.49 10^6/uL (4.70-6.10); RED CELL DISTRIBUTION WIDTH 15.5 % (12.0-15.0); WHITE BLOOD COUNT 15.7 x10^3/uL (4.8-10.8)
[2019-12-18] MEDS ORDERED: FUROSEMIDE 40 MG/4 ML VIAL IVP STA ×2 (10:02→12:03)
[2019-12-18 10:03] LABS: ALBUMIN 1.8 g/dL (3.2-5.5); ALBUMIN/GLOBULIN RATIO 0.4 (1.0-2.2); BILIRUBIN,TOTAL 15.3 mg/dL (0.2-1.0); CALCIUM 7.5 mg/dL (8.5-10.3); CREATININE 6.6 mg/dL (0.6-1.2); MAGNESIUM 2.7 mg/dL (1.7-2.8); TOTAL PROTEIN 6.7 g/dL (6.7-8.2)
[2019-12-18 10:14] LABS: INR 1.8 (0.8-1.2); PT - PROTHROMBIN TIME 19.4 secs (9.9-12.6)
[2019-12-18 10:21] LABS: PARTIAL THROMBOPLASTIN TIME 40.8 secs (24.9-33.3)
[2019-12-18 10:47] LABS: GLUCOSE, URINE (UA) NEGATIVE (NEGATIVE); KETONES,URINE (UA) NEGATIVE (NEGATIVE); LEUKOCYTE ESTERASE, URINE TRACE (NEGATIVE); NITRITE,URINE NEGATIVE (NEGATIVE); OCCULT BLOOD,URINE NEGATIVE (NEGATIVE); PH,URINE 5.5 PH (5.0-7.5); PROTEIN,URINE NEGATIVE (NEGATIVE); UROBILINOGEN,URINE 0.2 (NORMAL) E.U./dL (NORMAL)
[2019-12-18 10:50] LABS: BILIRUBIN,URINE MODERATE (NEGATIVE); CLARITY,URINE SL. CLOUDY (CLEAR); ICTOTEST,URINE POSITIVE
[2019-12-18 10:56] LABS: BACTERIA,URINE Few /HPF (None Seen); RBC,URINE 0-5 /HPF (0-5); SQUAMOUS EPITHELIAL CELL,UR MANY Squamous (<= Few)
--- NOTE | 2019-12-18 10:59 | XRAY Report ---
Reason: chest pain Procedure Date: 12/18/2019 Accession Number: [id number] / [id number] Procedure: XR - Chest 1 View X-Ray CPT Code: 26946 Final Report FULL RESULT: EXAM: CHEST RADIOGRAPHY EXAM DATE: 12/18/2019 10:50 AM. CLINICAL HISTORY: Chest pain. COMPARISON: CHEST 1 VIEW 11/24/2019 1:52 PM. TECHNIQUE: 1 view. FINDINGS: Lungs/Pleura: Diffuse increased interstitial markings and peribronchial cuffing. No focal opacities evident. No pleural effusion. No pneumothorax. Mediastinum: Within exam limitations, the cardiomediastinal contour is normal. Other: None. IMPRESSION: Diffuse increased interstitial markings and peribronchial cuffing are nonspecific but can be seen in the setting of reactive airways disease, bronchitis or viral infection. RADIA
--- NOTE | 2019-12-18 11:15 | CT Report ---
Reason: fall with head injury 2 wks ago; confused few days Procedure Date: 12/18/2019 Accession Number: [id number] / [id number] Procedure: CT - HEAD WO CPT Code: Final Report FULL RESULT: EXAM: CT HEAD EXAM DATE: 12/18/2019 10:59 AM. CLINICAL HISTORY: Fall with head injury 2 wks ago; confused few days. COMPARISON: CERVICAL SPINE W/O 12/20/2018 10:42 PM. TECHNIQUE: Multiaxial CT images were obtained from the foramen magnum to the vertex. Reformats: Sagittal and coronal. IV contrast: None. In accordance with CT protocol optimization, one or more of the following dose reduction techniques were utilized for this exam: automated exposure control, adjustment of mA and/or KV based on patient size, or use of iterative reconstructive technique. FINDINGS: Parenchyma: No intraparenchymal hemorrhage. No evidence of mass, midline shift, or CT findings of infarction. Roland-white differentiation is distinct. Subcortical and periventricular white matter changes consistent with small vessel ischemic disease in the appropriate clinical setting. Extraaxial Spaces: Normal for age. No subdural or epidural collections identified. Ventricles: Normal in size and position. Sinuses and Orbits: Imaged paranasal sinuses, orbits, and mastoids show no significant abnormality. Bones: No evidence of fracture or calvarial defect. Other: None. IMPRESSION: 1. No acute intracranial abnormality. 2. Small vessel ischemic disease in the appropriate clinical setting. RADIA
[2019-12-18] MEDS ORDERED: ONDANSETRON 4 MG/2 ML VIAL IVP PRN (12:29)
[2019-12-18] MEDS ORDERED: HYDROmorphone 0.5 MG/0.5 ML SYRINGE IVP PRN (12:29)
--- NOTE | 2019-12-18 13:10 | PHARMACY PROGRESS NOTE ---
- Best Possible Medication History Admit Date and Time: 12/18/19 1229 Processed by: Pharmacy Medication History completed: Yes Patient Interview: Pt unable to participate Secondary Source(s): Pharmacy records, Insurance records, Previous admit records As the person ultimately responsible for medication therapy, providers are able to order a medication from an existing home medication list in [facility] via the "Reconcile Routine" prior to Confirmation of that medication by technical support manager. Such practice is discouraged except when the physician, in their clinical judgment, deems that a medical need exists for a medication without regard to previous use.
[2019-12-18] MEDS: SODIUM CHLORIDE 0.9% 1,000 ML IV SCH (13:51)
[2019-12-18] MEDS: SPIRONOLACTONE 25 MG TABLET PO SCH ×2 (13:52→20:59)
[2019-12-18] MEDS: INSULIN GLARGINE 300 UNIT/3 ML PEN SUBQ SCH (16:26)
--- NOTE | 2019-12-18 16:52 | HISTORY & PHYSICAL EXAMINATION ---
DATE OF SERVICE: 12/18/2019 Physician: Yun Acosta MD HISTORY OF PRESENT ILLNESS: This is a 64-year-old white male with a history of alcohol abuse for 30 years. He was just admitted here 2 weeks ago when he had weakness and confusion and was diagnosed with alcoholism, acute liver failure, his bilirubin was 12-15 and he was confused and jaundiced. He also had developed hyperglycemia and was diagnosed as a diabetic, had renal insufficiency and was sent home on new insulin, nadolol for findings of esophageal varices and portal hypertension and there were arrangements made to be seen by a [employer] [employer]. His reports that they did go to see the [facility] at [place] and there were no diuretics started or any other changes made. The patient did stop his alcohol intake. He presents today with worsening confusion and "stumbling" and he states that he fell and hit his head. He has been found to have an ammonia level of 139, bilirubin of 15, creatinine of 6.6 with potassium [address].9. A CT scan of the head did not show any hemorrhage or evidence of infarction. He is being admitted for hepatic encephalopathy and hepatorenal syndrome with JENNI. REVIEW OF SYSTEMS: The patient gives very little detailed history. He is oriented to self and was given lactulose in the ER and has just had a watery bowel movement, he reports. A comprehensive review of systems was performed by chart review and speaking to the ER doctor. The pertinent positives are listed above and the rest are negative. The patient has seen TARYN Burnham, in Palliative consult just yesterday in her office, and there has been a new DNR/DNI established. ALLERGIES: NONE. MEDICATIONS: 1. Insulin 12 units subcutaneous of Lantus b.i.d. 2. Aspart insulin 8 units subcutaneous t.i.d. with meals. 3. Thiamine 100 mg daily. 4. Spironolactone 50 mg daily. 5. Pregabalin 50 mg t.i.d. 6. Folic acid 1 mg daily. 7. Lasix 20 mg daily. 8. Nadolol 40 mg daily. FAMILY HISTORY: No inherited diseases are known. SOCIAL HISTORY: The patient used to drink 2 glasses of wine plus 3 shots of vodka every day for the past 30 years and he stated he did this for insomnia, since he could not get sleep with Benadryl or Ambien and other things were tried. There is no smoking history whatsoever. It appears that there is no recreational use history by review of chart. PHYSICAL EXAMINATION: GENERAL: Middle-aged white male, icteric. He is oriented to self. He is in no distress. He is supine in bed. VITAL SIGNS: Blood pressure 99/64, heart rate 50 in sinus rhythm. He is hypothermic with oral temperature of 34.4 and rectal temperature of 33, room air saturation is 99%. HEENT: Shows scleral icterus. He is poorly kempt and has a smith. Oral dentition appears good and he is not dehydrated. NECK: Shows no JVD in a supine position. CHEST: Clear. HEART: Distant heart sounds. ABDOMEN: Distended, possibly a fluid wave. EXTREMITIES: Legs with 1+ edema. NEUROLOGIC: He does not have a liver flap but has a fine tremor of both hands. He is only oriented to self. He is moving all extremities spontaneously and independently. LABORATORY DATA: Sodium 131, potassium 3.9, BUN 98, creatinine 6.6, glucose 133. Lactic acid 1.6, magnesium 2.7, bilirubin 15.3, AST 150, ALT 113, alkaline phosphatase 174. Ammonia level 138. BNP 344. Albumin 1.8. TSH 17.79. There is no old TSH from the admission 2 weeks ago. White blood count 15.7, hemoglobin 12.3 with MCV of 102, platelet count 219. INR is 1.8. Urinalysis shows moderate bilirubin, trace leukocyte esterase, many squamous cells. Toxicology shows no serum alcohol present. IMAGING: Chest x-ray: Diffuse increased interstitial markings are nonspecific. Head CT: No acute findings of hemorrhage or any large stroke and small vessel ischemic disease seen. IMPRESSION/DIAGNOSES 1. Hepatic encephalopathy. 2. Hepatorenal syndrome. 3. Acute kidney injury and chronic kidney disease. 4. Hypothermia. 5. Hypothyroidism, newly diagnosed now. 6. Alcohol abuse. 7. Hx of esophageal varices per recent work up. 8. Liver cirrhosis with ascites. 9. Portal hypertension. 10. Controlled Diabetes mellitus type 2, on insulin. 11. Hyponatremia. 12. Urinary retention. 13. Urethral stricture. 14. Insomnia. 15. Peripheral neuropathy, on gabapentin. PLAN: Admit the patient to a Med/Surg bed. Start gentle IV hydration because of the acute kidney injury but continue with his spironolactone, stop the loop diuretic. Start a hepatorenal adjusted diet. Start lactulose t.i.d. and titrate it to at least 2 liquid bowel movements daily. Follow his electrolytes, renal labs, liver tests, bilirubin and ammonia daily. Start the patient on thyroid replacement, which will also help slightly manage the fluid retention. Obtain a dietary consult regarding other management for nutritional support. Continue daily thiamine and daily folate. Since he is auto-anticoagulated with a high INR, no Lovenox is planned. Use SCDs for DVT prophylaxis. He will need OT and PT evaluation and management. Follow his daily weights, I's and O's, daily labs as above. CODE STATUS: DNR. DEEP VENOUS THROMBOSIS PROPHYLAXIS: SCDs. ATTESTATION: The patient is expected to be discharged or transferred to another facility within 96 hours: Yes. cc: Jon Asher MD TD: 12/18/2019 16:28 MTDD
[2019-12-18] MEDS: LACTULOSE 10 GM /15 ML UDC PO SCH (17:21)
[2019-12-18] MEDS: INSULIN ASPART 300 UNIT/3 ML PEN SUBQ SCH ×2 (17:21→21:00)
[2019-12-18] MEDS: SODIUM CHLORIDE FLUSH 0.9% 10 ML SYRINGE IVP SCH (17:22)
[2019-12-18] MEDS: FAMOTIDINE 20 MG TABLET PO SCH (20:59)
[2019-12-18] MEDS: SODIUM CHLORIDE FLUSH 0.9% 10 ML SYRINGE IVP PRN (20:59)
[2019-12-18] MEDS ORDERED: diphenhydrAMINE ELIXIR 25 MG/10 ML UDC PO PRN (22:00)
[2019-12-19 05:13] LABS: BASOPHILS % (AUTO) 0.3 %; EOSINOPHILS # (AUTO) 0.2 10^3/uL (0.0-0.7); EOSINOPHILS % (AUTO) 1.2 %; HGB - HEMOGLOBIN 11.7 g/dL (14.0-18.0); LYMPHOCYTES # (AUTO) 1.8 10^3/uL (1.5-3.5); LYMPHOCYTES % (AUTO) 11.2 %; MEAN CORPUSCULAR HEMOGLOBIN 35.1 pg (27.0-31.0); MEAN CORPUSCULAR VOLUME 100.3 fL (80.0-94.0); MEAN PLATELET VOLUME 11.6 fL (7.4-11.4); MONOCYTES # (AUTO) 1.1 10^3/uL (0.0-1.0); NEUTROPHILS # (AUTO) 12.6 10^3/uL (1.5-6.6); NEUTROPHILS % (AUTO) 79.5 %; PLT - PLATELET COUNT 203 10^3/uL (130-450); RED BLOOD COUNT 3.33 10^6/uL (4.70-6.10); RED CELL DISTRIBUTION WIDTH 15.6 % (12.0-15.0); WHITE BLOOD COUNT 15.8 x10^3/uL (4.8-10.8)
[2019-12-19 05:34] LABS: ALBUMIN 1.8 g/dL (3.2-5.5); ALBUMIN/GLOBULIN RATIO 0.4 (1.0-2.2); BILIRUBIN,TOTAL 15.6 mg/dL (0.2-1.0); CALCIUM 7.5 mg/dL (8.5-10.3); TOTAL PROTEIN 6.2 g/dL (6.7-8.2)
[2019-12-19 05:49] LABS: HB2 TOTAL 11.6 g/dL; HEMOGLOBIN A1C 0.55 g/dL; HEMOGLOBIN A1C % 6.5 % (4.6-6.2)
[2019-12-19] MEDS: rifAXIMin 550 MG TABLET PO SCH ×2 (08:29→20:53)
[2019-12-19] MEDS: SODIUM CHLORIDE FLUSH 0.9% 10 ML SYRINGE IVP SCH ×3 (08:29→17:10)
[2019-12-19] MEDS: LEVOTHYROXINE 75 MCG TABLET PO SCH (08:30)
[2019-12-19] MEDS: SPIRONOLACTONE 25 MG TABLET PO SCH ×2 (08:30→20:53)
[2019-12-19] MEDS: FAMOTIDINE 20 MG TABLET PO SCH ×2 (08:30→20:59)
[2019-12-19] MEDS: LACTULOSE 10 GM /15 ML UDC PO SCH ×3 (08:31→17:10)
[2019-12-19] MEDS: INSULIN GLARGINE 300 UNIT/3 ML PEN SUBQ SCH ×2 (08:32→17:02)
[2019-12-19] MEDS: INSULIN ASPART 300 UNIT/3 ML PEN SUBQ SCH ×4 (08:38→20:54)
[2019-12-19] MEDS ORDERED: THIAMINE 100 MG TABLET PO SCH (09:00)
[2019-12-19] MEDS ORDERED: nadoloL 20 MG TABLET PO SCH (09:00)
[2019-12-19] MEDS ORDERED: FOLIC ACID 1 MG TABLET PO SCH (09:00)
--- NOTE | 2019-12-19 11:17 | PROVIDER PROGRESS NOTE ---
Assessment/Plan - Problem List (1) Hepatic encephalopathy Assessment/Plan: His MELD score =42 today, giving him a mortality rate of 92% over 3 mos. I called the and discussed that he has worsened today, despite medical management. She will be allowed to visit at bedside(even during this time of pandemic requiring social distancing and isolation/quarantine) since he is not expected to survive this hospitalization if his labs continue no show worsening. The Active Directory Engineer will call her and give instructions. Continue gentle diuresis, Lactulose, follow ammonia level, INR and CMP daily. (2) Hepatorenal failure Assessment/Plan: The creat has increased from 6.6 to 7, the uremia is also adding to his confusion. Continue gentle NS hydration and gentle diuresis. (3) Alcohol abuse Assessment/Plan: He has known sequelae of liver failure: Ascites, esophageal varices and portal hypertension, this was found on imaging done at his last admission 2 weeks ago. P.o. thiamine has been ordered. If he becomes lethargic will need to switch to IV forms of therapy. Follow LFTs daily and ammonia level daily. (4) Hyponatremia Assessment/Plan: Poor prognosis in cirrhosis of the liver with liver failure. Continue with gentle iv saline hydration. (5) Hypothyroidism Assessment/Plan: Newly Dx this admission. Synthroid po was ordered. (6) Uncontrolled type 2 diabetes mellitus with insulin therapy Assessment/Plan: A1c is 6.3, better than 7.4 before Insulin was started. cc diet and ss Insulin coverage ordered. (7) Liver failure, acute Assessment/Plan: He is not in hepatic coma yet. The acute worsening may be from his portal hypertension and no obstruction which would parallel his worsening abdominal distention from ascites. Poor prognosis was discussed with the today. Continue with present management. (8) Urinary retention with incomplete bladder emptying Assessment/Plan: According to the history, this is from a urethral stricture that he knows about. He has not wanted straight cath in the past. He is still trying to urinate independently. He is not yet in a coma to order a Park. (9) Peripheral neuropathy Assessment/Plan: Gabapentin was originally re-started to manage this but with his uremia and hepatic encephalopathy, no extra sedatives will be used. - Current Meds Current Meds: Current Medications Generic Name Dose Route Start Last Admin Trade Name Freq PRN Reason Stop Dose Admin Famotidine 20 mg 12/18/19 21:00 12/19/19 08:30 Pepcid PO 20 mg BID RAMAKRISHNA Administration Folic Acid 1 mg 12/19/19 09:00 12/19/19 08:29 PO 1 mg DAILY RAMAKRISHNA Administration Hydromorphone HCl 0.5 mg 12/18/19 12:29 12/18/19 20:59 Dilaudid Inj Syringe IVP 0.5 mg Q2H PRN Administration Pain 8 to 10 Sodium Chloride 1,000 mls @ 40 mls/hr 12/18/19 13:00 12/18/19 13:51 Normal Saline 0.9% IV 40 mls/hr .Q25H RAMAKRISHNA Administration Insulin Aspart 1 - 5 unit 12/18/19 17:00 12/19/19 08:38 Novolog SUBQ 1 unit 0800,1200,1700,2100 RAMAKRISHNA Administration Protocol Insulin Glargine 5 unit 12/18/19 16:00 12/19/19 08:32 Lantus Solostar SUBQ 5 unit BIDAC RAMAKRISHNA Administration Lactulose 20 gm 12/18/19 17:00 12/19/19 08:31 Enulose PO 20 gm TIDWM RAMAKRISHNA Administration Levothyroxine Sodium 75 mcg 12/19/19 07:00 12/19/19 08:30 Synthroid PO 75 mcg QDAC RAMAKRISHNA Administration Nadolol 20 mg 12/19/19 09:00 12/19/19 08:32 Corgard PO Not Given DAILY RAMAKRISHNA Rifaximin 550 mg 12/19/19 09:00 12/19/19 08:29 Xifaxan PO 550 mg BID RAMAKRISHNA Administration Sodium Chloride 10 ml 12/18/19 12:29 12/18/19 20:59 Normal Saline Flush 0.9% IVP 10 ml PRN PRN Administration NEEDED PER PROVIDER ORDERS Sodium Chloride 10 ml 12/18/19 17:00 12/19/19 08:41 Normal Saline Flush 0.9% IVP 10 ml 0100,0900,1700 RAMAKRISHNA Administration Spironolactone 50 mg 12/18/19 13:00 12/19/19 08:30 Aldactone PO 50 mg BID RAMAKRISHNA Administration Thiamine HCl 100 mg 12/19/19 09:00 12/19/19 08:29 Vitamin B-1 PO 100 mg DAILY RAMAKRISHNA Administration - Lab Result Fish Bone Diagrams: 12/19/19 04:35 12/19/19 04:35 - Additional Planning My Orders: My Active Orders 12/18/19 12:29 Activity Orders [RC] Q2HR IO [RC] IOSHIFT Initiate Bowel Care Protocol [RC] .protocol Initiate Line Care Protocol [RC] QSHIFT Initiate Personal Care Protoco [RC] .protocol Oxygen Therapy [RC] Routine Vital Signs [RC] 0800,1600,0000 HYDROmorphone INJ SYRINGE [Dilaudid Inj Syringe] 0.5 mg IVP Q2H PRN Ondansetron Inj [Zofran Inj] 4 mg IVP Q6HR PRN Sodium Chloride Flush 0.9% [Normal Saline Flush 0.9%] 10 ml IVP PRN PRN Code Status [OTHERS] Routine Condition of Patient [OTHERS] Routine DVT Prophylaxis [OTHERS] Routine 12/18/19 12:31 Daily Weight [RC] 0600 IV Insert [RC] .ONCE 12/18/19 12:32 SCDs [RC] QSHIFT 12/18/19 12:35 Blood Glucose Checks - Eating [RC] 0800,1200,1700,2100 Initiate Hypoglycemia Protocol [RC] .protocol 12/18/19 13:00 Sodium Chloride 0.9% [Normal Saline 0.9%] 1,000 ml IV 40 mls/hr Spironolactone [Aldactone] 50 mg PO BID 12/18/19 16:00 Insulin Glargine [Lantus Solostar] 5 unit SUBQ BIDAC 12/18/19 17:00 Insulin Aspart [NovoLOG] 1 - 5 unit SUBQ 0800,1200,1700,2100 Lactulose [Enulose] 20 gm PO TIDWM Sodium Chloride Flush 0.9% [Normal Saline Flush 0.9%] 10 ml IVP 0100,0900,1700 12/18/19 21:00 Famotidine [Pepcid] 20 mg PO BID 12/18/19 22:00 diphenhydrAMINE ELIXIR [Benadryl Elixir] 25 mg PO QPM PRN 12/18/19 Dinner Hepatic/Renal Diet [DIET] 12/19/19 07:00 Levothyroxine [Synthroid] 75 mcg PO QDAC 12/19/19 09:00 Folic Acid 1 mg PO DAILY Thiamine [Vitamin B-1] 100 mg PO DAILY nadoloL [Corgard] 20 mg PO DAILY Subjective - Subjective Patient Reports: Resting Comfortably Nursing Reports: Other (Took sips of liquid from a cup, cannot follow commands to swallow from a straw. Is taking applesauce but no other foods.) Objective Vital Signs: Vital Signs - 24 hr 12/18/19 12/18/19 12/18/19 11:42 12:01 12:40 Temperature 33.2 C L 33.2 C L 33 C L Heart Rate 52 L 51 L 54 L Heart Rate [ Radial] Respiratory 16 16 12 Rate Blood Pressure 92/68 93/64 99/64 Blood Pressure [Right Brachial artery] O2 Saturation 100 99 97 12/18/19 12/18/19 12/18/19 13:12 14:07 14:23 Temperature 33.3 C L 34.4 C L 34.4 C L Heart Rate 50 L Heart Rate [ 52 L Radial] Respiratory 18 16 Rate Blood Pressure 87/64 L Blood Pressure 88/62 L [Right Brachial artery] O2 Saturation 99 99 12/18/19 12/18/19 12/19/19 16:00 23:59 00:20 Temperature 33.7 C L 34.2 C L Heart Rate Heart Rate [ 55 L 56 L Radial] Respiratory 20 16 Rate Blood Pressure Blood Pressure 99/64 114/72 [Right Brachial artery] O2 Saturation 100 97 12/19/19 08:00 Temperature 34.7 C L Heart Rate Heart Rate [ 61 Radial] Respiratory 16 Rate Blood Pressure Blood Pressure 94/54 L [Right Brachial artery] O2 Saturation 97 Oxygen O2 Source Room air I&O (Last 24 Hrs): Intake and Output Totals x24h 12/17/19 12/18/19 12/19/19 23:59 23:59 23:59 Intake Total 1300 Output Total 50 80 Balance 1250 -80 General: Other (Awake but appears lethargic, is staring at one point in space.) HEENT: Mucous membr. moist/pink Neck: Supple Neuro: Disoriented, Other (Speech is brief, intermittently appropriate) Cardiovascular: No murmurs Respiratory: No respiratory distress Abdomen: Other (Distended, positive ascites, cannot rule out hepatomegaly) Extremities: Other (1+ edema) - Results Results: Laboratory Results WBC 15.8 x10^3/uL (4.8-10.8) H 12/19/19 04:35 RBC 3.33 10^6/uL (4.70-6.10) L 12/19/19 04:35 Hgb 11.7 g/dL (14.0-18.0) L 12/19/19 04:35 Hct 33.4 % (42.0-52.0) L 12/19/19 04:35 MCV 100.3 fL (80.0-94.0) H 12/19/19 04:35 MCH 35.1 pg (27.0-31.0) H 12/19/19 04:35 MCHC 35.0 g/dL (32.0-36.0) 12/19/19 04:35 RDW 15.6 % (12.0-15.0) H 12/19/19 04:35 Plt Count 203 10^3/uL (130-450) 12/19/19 04:35 MPV 11.6 fL (7.4-11.4) H 12/19/19 04:35 Neut # (Auto) 12.6 10^3/uL (1.5-6.6) H 12/19/19 04:35 Lymph # (Auto) 1.8 10^3/uL (1.5-3.5) 12/19/19 04:35 Mcdonough # (Auto) 1.1 10^3/uL (0.0-1.0) H 12/19/19 04:35 Eos # (Auto) 0.2 10^3/uL (0.0-0.7) 12/19/19 04:35 Baso # (Auto) 0.0 10^3/uL (0.0-0.1) 12/19/19 04:35 Absolute Nucleated RBC 0.00 x10^3/uL 12/19/19 04:35 Nucleated RBC % 0.0 /100WBC 12/19/19 04:35 PT 19.4 secs (9.9-12.6) H 12/18/19 09:20 INR 1.8 (0.8-1.2) H 12/18/19 09:20 APTT 40.8 secs (24.9-33.3) H 12/18/19 09:20 Sodium 134 mmol/L (135-145) L 12/19/19 04:35 Potassium 4.4 mmol/L (3.5-5.0) 12/19/19 04:35 Chloride 107 mmol/L (101-111) 12/19/19 04:35 Carbon Dioxide 12 mmol/L (21-32) L* 12/19/19 04:35 Anion Gap 15.0 (6-13) H 12/19/19 04:35 BUN 99 mg/dL (6-20) H* 12/19/19 04:35 Creatinine 7.0 mg/dL (0.6-1.2) H* 12/19/19 04:35 Estimated GFR (MDRD) 8 (>89) L 12/19/19 04:35 Glucose 162 mg/dL (70-100) H 12/19/19 04:35 Glycated Hemoglobin 6.5 % (4.6-6.2) H 12/19/19 04:35 Estim Average Glucose 140 (70-100) H 12/19/19 04:35 Lactic Acid 1.6 mmol/L (0.5-2.2) 12/18/19 09:20 Calcium 7.5 mg/dL (8.5-10.3) L 12/19/19 04:35 Magnesium 2.7 mg/dL (1.7-2.8) 12/18/19 09:20 Total Bilirubin 15.6 mg/dL (0.2-1.0) H 12/19/19 04:35 AST 215 IU/L (10-42) H 12/19/19 04:35 ALT 137 IU/L (10-60) H 12/19/19 04:35 Alkaline Phosphatase 173 IU/L (42-121) H 12/19/19 04:35 Ammonia 203.0 umol/L (7-35) H* 12/19/19 04:35 B-Natriuretic Peptide 344 pg/mL (5-100) H 12/18/19 09:20 Total Protein 6.2 g/dL (6.7-8.2) L 12/19/19 04:35 Albumin 1.8 g/dL (3.2-5.5) L 12/19/19 04:35 Globulin 4.4 g/dL (2.1-4.2) H 12/19/19 04:35 Albumin/Globulin Ratio 0.4 (1.0-2.2) L 12/19/19 04:35 Lipase 51 U/L (22-51) 12/18/19 09:20 TSH 17.79 uIU/mL (0.34-5.60) H 12/18/19 09:20 Urine Color DARK YELLOW 12/18/19 10:30 Urine Clarity SL. CLOUDY (CLEAR) 12/18/19 10:30 Urine pH 5.5 PH (5.0-7.5) 12/18/19 10:30 Ur Specific [place] 1.025 (1.002-1.030) 12/18/19 10:30 Urine Protein NEGATIVE mg/dL (NEGATIVE) 12/18/19 10:30 Urine Glucose (UA) NEGATIVE mg/dL (NEGATIVE) 12/18/19 10:30 Urine Ketones NEGATIVE mg/dL (NEGATIVE) 12/18/19 10:30 Urine Occult Blood NEGATIVE (NEGATIVE) 12/18/19 10:30 Urine Nitrite NEGATIVE (NEGATIVE) 12/18/19 10:30 Urine Bilirubin MODERATE (NEGATIVE) H 12/18/19 10:30 Urine Urobilinogen 0.2 (NORMAL) E.U./dL (NORMAL) 12/18/19 10:30 Ur Leukocyte Esterase TRACE (NEGATIVE) H 12/18/19 10:30 Urine RBC 0-5 /HPF (0-5) 12/18/19 10:30 Urine WBC 6-10 /HPF (0-3) H 12/18/19 10:30 Ur Squamous Epith Cells MANY Squamous (<= Few) H 12/18/19 10:30 Urine Bacteria Few /HPF (None Seen) 12/18/19 10:30 Ur Microscopic Review INDICATED 12/18/19 10:30 Urine Culture Comments NOT INDICATED 12/18/19 10:30 Ethyl Alcohol < 5.0 mg/dL 12/18/19 09:20
[2019-12-19 12:30] LABS: VBG PCO2 21.7 mmHg (41-51); VBG PH 7.337 (7.31-7.41); VBG PO2 100.3 mmHg (25-47)
[2019-12-19 12:31] LABS: VBG BASE EXCESS -12.5 mmol/L (-2 - +2)
[2019-12-19] MEDS: SODIUM CHLORIDE 0.9% 1,000 ML IV SCH (13:09)
--- NOTE | 2019-12-19 14:08 | ADVANCE CARE PLANNING NOTE ---
Advance Care Planning - Planning Encounter Date: 12/19/19 Time: 13:00 Purpose: To esatblish pt and 's wishes about aggressiveness of care. Parties in Attendance: I spoke to the at bedside, outside his room. Decisional Capacity of the Patient: He currently has no decisional capacity; he is here with hepatic encephalopathy and is now uremic and therefore can make no decisions. - Diagnosis for Encounter (1) Hepatic encephalopathy Summary: Ammonia of 138 at admission and has increased to 203 today. (2) Hepatorenal failure Summary: He had mild renal insufficiency at the last admission which normalized by the time of discharge. On this admission he presents with a creatinine of 6.6 yesterday which is worsened to 7.0 today, and he is oliguric. On physical exam he appears clinically uremic. 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 Patient has been an alcoholic for many years and he would drink wine every evening for 30 years, but in the last 2 years he has added vodka to his wine because of "insomnia". In those 2 years he was intermittently speaking gibberish or not acting his normal self (this may have been Wernicke's encephalopathy or alcoholic dementia starting, I told the ). When he was extremely confused 2 weeks ago, he called her to come back from a trip to [place], which she did and found him to in fact be very c onfused and not himself. [facility] here for hepatic failure, hepatic encephalopathy, JENNI, new diabetes mellitus. He was advised to stop drinking alcohol. After duischarge, he did go to see a news wire photo operator and their recommendation was to have elective banding of his esophageal varices, which were newly found on the last admission along with portal hypertension, but there were no med changes made or other advice. He was again suddenly confused 1 day ago and brought to the emergency room yesterday. He is in worse condition with his liver and kidneys on this admission. Objective/Medical Story: Patient was admitted 2 weeks ago with confusion and found to have hepatic encephalopathy, JENNI, new diabetes requiring insulin. He did stop drinking alcohol and mentation improved. Two days ago the noticed that his improved mentation had again gotten worse, he was speaking gibberish, not following commands, thus she called over a friend to see if he thought the same thing and then an ambulance was called. He is admitted now with hepatic encephalopathy with ammonia level of 138 that is increased to 203 today. He also has new severe renal insufficiency with creatinine of 6.6 yesterday that is increased to 7 today. He is oliguric. He is icteric. He is staring off into space suggesting clinical uremia. I explained all this to the . If he has no improvement in his LFTs and renal function, further medical management would be useless. I advised that the start thinking about transitioning to Comfort Care. I advised that Abbie Rodriguez be involved in the transition. Abbie met this patient 2 days before this hospitalization. I will request her on consult starting Friday (today Friday). Goals of Care: The says that the patient has mentioned he does not want aggressive management: He did not want the elective esophageal banding, he would not want to undergo hemodialysis, he would not want to be transferred to another hospital. She wants him kept comfortable and not in pain. Plan: Continue with aggressive management today. Ascertain if there is improvement on tomorrow's labs and clinical status. Abbie Rodriguez, ENTERPRISE SOFTWARE ENGINEER for palliative care consult and to follow along daily. I recommend transitioning to comfort care depending on his clinical course, the wants to think about it. Continue with DNR/DNI status. Additional Discussion: I first spoke to the patient's earlier this morning by phone to update her on his worsening labs and his condition (15 min). At that time she asked if she is allowed to come and be at his bedside. I spoke to the hospital Continuity Tester who indicated that because this patient is doing poorly, may be imminently dying this hospitalization, 2 people are allowed visit. I told the she may come in, and later I met her in person at bedside with the above discussion (25 min). Code Status: Do Not Attempt Resuscitation Time spent on advance care plannin min
[2019-12-20] MEDS: SODIUM CHLORIDE 0.9% 1,000 ML IV SCH ×2 (01:12→06:38)
[2019-12-20] MEDS: SODIUM CHLORIDE FLUSH 0.9% 10 ML SYRINGE IVP SCH ×3 (01:13→22:25)
[2019-12-20 05:28] LABS: BASOPHILS % (AUTO) 0.3 %; EOSINOPHILS # (AUTO) 0.4 10^3/uL (0.0-0.7); EOSINOPHILS % (AUTO) 2.7 %; HGB - HEMOGLOBIN 11.4 g/dL (14.0-18.0); LYMPHOCYTES # (AUTO) 1.9 10^3/uL (1.5-3.5); LYMPHOCYTES % (AUTO) 12.9 %; MEAN CORPUSCULAR HEMOGLOBIN 35.4 pg (27.0-31.0); MEAN CORPUSCULAR HGB CONC 34.7 g/dL (32.0-36.0); MEAN CORPUSCULAR VOLUME 102.2 fL (80.0-94.0); MEAN PLATELET VOLUME 11.9 fL (7.4-11.4); MONOCYTES % (AUTO) 6.7 %; NEUTROPHILS # (AUTO) 11.4 10^3/uL (1.5-6.6); NEUTROPHILS % (AUTO) 76.7 %; PLT - PLATELET COUNT 182 10^3/uL (130-450); RED BLOOD COUNT 3.22 10^6/uL (4.70-6.10); RED CELL DISTRIBUTION WIDTH 16.2 % (12.0-15.0); WHITE BLOOD COUNT 14.9 x10^3/uL (4.8-10.8)
[2019-12-20 05:35] LABS: INR 2.1 (0.8-1.2); PT - PROTHROMBIN TIME 22.8 secs (9.9-12.6)
[2019-12-20 05:49] LABS: ALBUMIN 1.6 g/dL (3.2-5.5); ALBUMIN/GLOBULIN RATIO 0.4 (1.0-2.2); BILIRUBIN,TOTAL 14.9 mg/dL (0.2-1.0); CALCIUM 6.8 mg/dL (8.5-10.3)
[2019-12-20 05:56] LABS: CREATININE 7.9 mg/dL (0.6-1.2)
[2019-12-20] MEDS: LEVOTHYROXINE 75 MCG TABLET PO SCH (06:04)
[2019-12-20] MEDS ORDERED: LIDOCAINE 2% URO-JET 5 ML SYRINGE UR ONE (08:03)
[2019-12-20] MEDS: INSULIN ASPART 300 UNIT/3 ML PEN SUBQ SCH ×3 (08:52→17:06)
[2019-12-20] MEDS: PANTOPRAZOLE 40 MG VIAL IV SCH ×2 (09:00→22:21)
[2019-12-20] MEDS: MULTIVITAMIN 10 ML, THIAMINE INJ 100 MG, FOLIC ACID INJ 1 MG in SODIUM CHLORIDE 0.9% 1,... IV SCH (09:00)
--- NOTE | 2019-12-20 12:50 | CONSULTATION NOTE ---
Palliative Care Follow Up - Referral Referring Provider: Dr. Yun Sinha Time of Visit: 950-11 Referral setting: Hospitalized patient Referral Reason: AMS/Liver & Kidney failure/Pal Care - Information Sources Records reviewed: Previous records reviewed History/Review of Systems obtained from: Patient, Family (daughter Sade and Kerry for family meeting) Exam limitations: Clinical condition (patient nonresponsive) - History of Present Illness Update Brief HPI Update: This is a 64-year-old gentleman whom I just met on Saturday 12/16, had originally been [facility] early November for liver failure without hepatic coma, found to have cirrhosis of the liver with ascites, uncontrolled diabetes, urinary retent ion and worsening functional stHad consulted with GI and plan had been to initiate diuretics, and titrate accordingly depending on his pending labs. He was at that time hopeful he would recover, but concerned that despite abstinence, was continuing to deteriorate. His other main concern for pallia tive care, was increasing pain particularly in his feet, and right upper quadrant, and discomfort from ascites. reports patient became more confused, unable to get up, at home, and had a fall that Friday night. Had enlisted the help of a neighbor but unable to get him up, so did end up calling 911. Patient was admitted with hepatic encephalopathy, hepatorenal failure, and urinary retention with incomplete bladder emptying.atus. He had seen the recycling manager, no significant interventions were provided, other than to continue with abstinence, sodium restriction, conversation around esophageal varices and to have a repeat on his bilirubin. Unfortunately they went to the lab on Friday and it was closed, though he does sound like he was deteriorating through rest of the afternoon and evening. When I saw him, he reporting he was weaker than he had been over the week, was having some increased symptoms of urinary retention, and definitely with fluid retention. Patient's labs have continued to steadily worsen, with worsening renal failure, BUN up to 97, creatinine 7.9, GFR 7. Patient is with eyes open, but fairly nonresponsive, does appear uncomfortable and restless. Patient with very little urine output, has blood clot in catheter. Did have RN do a scan with about 500 mils, with flushing and removal of a clot some decrease in bladder retention, still around 350 mils. Suspect patient with reported urethral stricture, most likely trauma with catheterization, and high INR has blood clots. Does help with flushing for emptying. Patient was able to eat a little bit yesterday, was little bit more awake, is incontinent of stool. Given patient's large size and AMS, very difficult to meet his care needs without more than 3 or 4 people assisting. Social History - Living Situation Living arrangement: At home Living Situation: With spouse/s.o. Support System: Patient lives at home with his , they have been for 25 years, she does have some vision problems and cannot drive. Their daughter who is 20, is home because of the coronavirus. Did meet with him for family meeting for goals of care. Medications/Allergies - Medications Active Medication List: Active Medications Furosemide (Lasix Inj 100mg Vial) 100 mg IVP BIDDIURETIC RAMAKRISHNA Multivitamins 10 ml/ Thiamine HCl 100 mg/ Folic Acid 1 mg/Sodium Chloride 1,011.2 mls @ 100 mls/hr IV DAILY FOR[facility], [facility] Last Admin: 12/20/19 09:00 Dose: 100 mls/hr Insulin Aspart (Novolog) 1 - 5 unit SUBQ 0800,1200,1700,2100 [facility], [facility]; Protocol Last Admin: 12/20/19 11:50 Dose: Not Given Ondansetron HCl (Zofran Inj) 4 mg IVP Q6HR PRN PRN Reason: Nausea / Vomiting Pantoprazole Sodium (Protonix) 40 mg IV BID [facility] Last Admin: 12/20/19 09:00 Dose: 40 mg Sodium Chloride (Normal Saline Flush 0.9%) 10 ml IVP PRN PRN PRN Reason: NEEDED PER PROVIDER ORDERS Last Admin: 12/18/19 20:59 Dose: 10 ml Sodium Chloride (Normal Saline Flush 0.9%) 10 ml IVP 0100,0900,1700 [facility], [facility] Last Admin: 12/20/19 10:24 Dose: 10 ml Furosemide 20 mg PO DAILY 12/18/19 Insulin Glargine [Lantus Solostar] 12 units SUBQ BID 12/18/19 Pregabalin 50 mg PO TID 12/18/19 Spironolactone 50 mg PO DAILY 12/18/19 - Allergies Allergies/Adverse Reactions: Allergies Allergy/AdvReac Type Severity Reaction Status Date / Time No Known Drug Allergies Allergy Verified 12/20/18 21:13 Review of Systems - Constitutional Constitutional: reports: Weight gain - Ears, Nose & Throat Ears, Nose & Throat: reports: Dry mouth - Cardiovascular Cardiovascular: reports: Edema - Gastrointestinal Gastrointestinal: reports: Diarrhea (loose stool) - Genitourinary Genitourinary: reports: Other (shah with blood clots;) - Musculoskeletal Musculoskeletal: reports: Muscle weakness, Other (bedbound; 3-4 person assist to change/reposition; unable to help) - Integumentary Integumentary: reports: Dryness - Neurological Neurological: reports: Other (nonverbal) - Psychiatric Psychiatric: reports: Aggitation - Endocrine Endocrine: reports: Diabetes type 2, Hypothyroidism (new) - Hematologic/Lymphatic Hematologic/Lymphatic: reports: Blood clots (in shah) - All Other Systems All Other Systems: reports: Other (limited ROS) Physical Exam - Vital Signs Vital Signs: Vital Signs x48h Temp Pulse Resp BP Pulse Ox 12/20/19 08:00 33.4 C L 61 19 92/57 L 97 12/20/19 05:01 34.1 C L 64 20 96 - Physical Exam General Appearance: positive: Mild distress, Lethargic Eyes Bilateral: negative: No scleral icterus (scleral icteric) ENT: positive: Dry mucous membranes Neck: positive: Trachea midline Cardiovascular: positive: Regular rate & rhythm Respiratory: negative: No respiratory distress (respiratory effort with movement/turning; difficulty with ascites) Abdomen: positive: Distended, Taut, Other (bladder scan 500 ml on exam; attempted flush clots pushed through down to 350 ml on recheck;) Skin: positive: Jaundice, Dryness, Other (petechia) Extremities: positive: Pedal edema Neurologic/Psychiatric: positive: Other (occasional grunt/restlessness; eyes open but unable to engage/respond) Palliative Care - POLST POLST Status: DNR Pain: Comment Feelings of wellbeing/Perceived Quality of Life: Poor, Worsening Performance Status: Patient bedbound, very restless, needs assistance with turning. Patient cannot follow directions meaningfully. - Palliative Care Discussion: Met with and patient, regarding goals of care. does understand the seriousness of his illness, we reviewed his worsening lab values, is decreasing level of alertness, increased confusion, and concern patient most likely is not going to improve. She had wanted to bring him home, but realized given the level of his care, his size, the fact he is unable to participate and his encephalopathy does not conceive how she could take care of him safely. She was not able to identify any family members, or assistance that might be of help, and even if they hired a home health aide, would not most likely be able to move or turn him without significant support. She is feeling quite overwhelmed, and worried about transitioning. She does want him to be comfortable, but is feeling quite torn her about withdrawing fluids and further care. We did discuss transitioning to hospice, patient most likely would not be appropriate for routine home hospice care. We discussed room and board is not covered, she does have a friend in [place], we did discuss reaching out to inpatient hospice is. Though I did review the criteria that it is most often for uncontrolled symptoms, and patient at this point in time would be able to be managed. Follow-up with social worker palliative care, will reach out to [facility] inpatient unit, as well as [facility]. I did introduce the fact she might have to pay for room and board in the context of [facility], and that they would need to have openings. Did go down and visit patient, she is feeling quite tearful, left to have time with her. Daughter is having a difficult time as well. This does feel quite sudden for them as far as transition over the last few months, did provide "hard choices for loving People". Will await outcome of hospice inquiry, and continue to move forward on possible transition to comfort measures. Results - Lab Results Lab results reviewed: Yes Fish Bones: 12/20/19 05:20 12/20/19 05:20 Lab and Imaging Results: Lab Results x24hrs 12/20/19 12/20/19 12/20/19 Range/Units 05:20 05:20 05:20 WBC (4.8-10.8) x10^3/uL RBC (4.70-6.10) 10^6/uL Hgb (14.0-18.0) g/dL Hct (42.0-52.0) % MCV (80.0-94.0) fL MCH (27.0-31.0) pg MCHC (32.0-36.0) g/dL RDW (12.0-15.0) % Plt Count (130-450) 10^3/uL MPV (7.4-11.4) fL Neut # (Auto) (1.5-6.6) 10^3/uL Lymph # (Auto) (1.5-3.5) 10^3/uL [place] # (Auto) (0.0-1.0) 10^3/uL Eos # (Auto) (0.0-0.7) 10^3/uL Baso # (Auto) (0.0-0.1) 10^3/uL Absolute Nucleated RBC x10^3/uL Nucleated RBC % /100WBC PT 22.8 H (9.9-12.6) secs INR 2.1 H (0.8-1.2) Sodium 132 L (135-145) mmol/L Potassium 5.4 H (3.5-5.0) mmol/L Chloride 107 (101-111) mmol/L Carbon Dioxide 11 L* (21-32) mmol/L Anion Gap 14.0 H (6-13) BUN 97 H* (6-20) mg/dL Creatinine 7.9 H* (0.6-1.2) mg/dL Estimated GFR (MDRD) 7 L (>89) Glucose 150 H (70-100) mg/dL Calcium 6.8 L (8.5-10.3) mg/dL Total Bilirubin 14.9 H (0.2-1.0) mg/dL AST 153 H (10-42) IU/L ALT 121 H (10-60) IU/L Alkaline Phosphatase 163 H (42-121) IU/L Ammonia 106.9 H* (7-35) umol/L Total Protein 6.0 L (6.7-8.2) g/dL Albumin 1.6 L (3.2-5.5) g/dL Globulin 4.4 H (2.1-4.2) g/dL Albumin/Globulin Ratio 0.4 L (1.0-2.2) 12/20/19 Range/Units 05:20 WBC 14.9 H (4.8-10.8) x10^3/uL RBC 3.22 L (4.70-6.10) 10^6/uL Hgb 11.4 L (14.0-18.0) g/dL Hct 32.9 L (42.0-52.0) % MCV 102.2 H (80.0-94.0) fL MCH 35.4 H (27.0-31.0) pg MCHC 34.7 (32.0-36.0) g/dL RDW 16.2 H (12.0-15.0) % Plt Count 182 (130-450) 10^3/uL MPV 11.9 H (7.4-11.4) fL Neut # (Auto) 11.4 H (1.5-6.6) 10^3/uL Lymph # (Auto) 1.9 (1.5-3.5) 10^3/uL [place] # (Auto) 1.0 (0.0-1.0) 10^3/uL Eos # (Auto) 0.4 (0.0-0.7) 10^3/uL Baso # (Auto) 0.0 (0.0-0.1) 10^3/uL Absolute Nucleated RBC 0.00 x10^3/uL Nucleated RBC % 0.0 /100WBC PT (9.9-12.6) secs INR (0.8-1.2) Sodium (135-145) mmol/L Potassium (3.5-5.0) mmol/L Chloride (101-111) mmol/L Carbon Dioxide (21-32) mmol/L Anion Gap (6-13) BUN (6-20) mg/dL Creatinine (0.6-1.2) mg/dL Estimated GFR (MDRD) (>89) Glucose (70-100) mg/dL Calcium (8.5-10.3) mg/dL Total Bilirubin (0.2-1.0) mg/dL AST (10-42) IU/L ALT (10-60) IU/L Alkaline Phosphatase (42-121) IU/L Ammonia (7-35) umol/L Total Protein (6.7-8.2) g/dL Albumin (3.2-5.5) g/dL Globulin (2.1-4.2) g/dL Albumin/Globulin Ratio (1.0-2.2) Impression and Recommendations - Palliative Care Impression: This is an unfortunate 64-year-old gentleman who has been admitted with alcoholic hepatitis, now presenting with hepatic encephalopathy and acute renal failure. Patient has continued to deteriorate, and is showing no signs of improvement at this time. Family is overwhelmed at the rapid decline, concerned about how best to meet patient's needs, palliative care to continue provide support and clarification of goals. Recommendations/Counseling Done: 1. Urinary retention. Patient continues to show signs and symptoms of urinary retention, suspect this is exacerbated by blood clots. Follow-up with hospitalist and nursing staff, recommended flushing every 2 hours, of concern is patient's stricture, and replacing catheter. Will need to continue to monitor to hospital team. 2. Agitation. This is multifactorial in origin, patient is most likely has some underlying anxiety related to his current situation, as well as metabolic encephalopathy. Recommend initiation of Lorazepam for management of both anxiety and agitation, goals are to focus on comfort and relief of suffering. 3. Hepatic encephalopathy. Patient continues to worsen, discussed with concerns regarding patient's poor prognosis. Introduced routine home hospice, does not feel like she can safely manage him at home and unable to identify resources for support. Counseling provided regarding hospice team benefits as well as limitations. Coordination of care with social work to follow-up on inpatient hospice availability and acceptance, though patient most likely does not meet GIP threshold. Time Spent: 70 minutes with greater than 50% of this done in counseling regarding the continuum of care, decision making regarding transitioning to comfort, and daughter feeling overwhelmed would like some time to see if patient responds, will continue current time trial of support, revisit transition to comfort measures, no identified transition plan at this time to meet care needs.
--- NOTE | 2019-12-20 13:00 | PROVIDER PROGRESS NOTE ---
Assessment/Plan - Problem List (1) Hepatic encephalopathy Assessment/Plan: He was obtunded this a.m. and not responding and not able to swallow. Then he became agitated tried to climb OOB and was focused on his at bedside, tried to talk mto her. Will change his po meds to iv forms. I explained to the and daughter at bedside that it is risky to feed him when he is not alert as he could aspirate. Placing an ng tube blindly (for Lactulose administration) would be high risk due to known esophageal varices and today's INR is 2.0 (due to liver failure). Palliative Care to help with decision regarding transition to Comfort Care and/or Hospice, since without hemodialysis, medical management will likley not give him recovery. (2) Hepatorenal failure Assessment/Plan: The creat continues to climb daily, today to 7.9. A Park has been placed (clots were flushed out and will continue orders to flush q2h or as needed). Palliative Care to help with decision regarding transition to Comfort Care and/or Hospice, since without hemodialysis, medical management will likely not give him recovery. (3) Hyperkalemia Assessment/Plan: K 5.4, but was low at admission and yesterday, possibly from diarrhea from Lactulose. Will follow BMP q12h, treat with Kayexelate and/or Insulin + D50 (4) Alcohol abuse Assessment/Plan: 30 year Hx and worse over tyhe past 2 years, per the . His admission here 3 weeks ago was the first time he and the family were told of his liver failure and its complications (portal HTN, esophageal varices). He went to see the specialist that was set up for him, esophageal banding was ordered which the patient has already refused. He did not want hemodialysis when he presented to the ER this time. Abbie Rodriguez NP saw him 1-2 days before this admission and DNR was established. Continue with Palliative Care consult today and follow-up here daily. (5) Hyponatremia Assessment/Plan: Related to his liver failure and bodes a poor prognosis. Today he cannot swallow; will stop the diet order. Will change his iv NS to a Banana Bag for hydration and for Thiamine and vitamin supplements. (6) Uncontrolled type 2 diabetes mellitus with insulin therapy Assessment/Plan: Continue sliding scale insulin to cover POC glucose checks. Continue with some calories via D5 IV. (7) Hypothyroidism Assessment/Plan: Newly Dx this admission. Will change he oral Synthroid to iv q5d dosing. (8) Liver failure, acute Assessment/Plan: LFTs have improved but he is less responsive today. I suspect his obtundation is more from uremia than hepatic coma therefore. His MELD score =42 today, giving him a high mortality rate . (9) Urinary retention with incomplete bladder emptying Assessment/Plan: He had a known urethral stricture and did not want straight cath on the last hospitalization. He has a Park currently, it can be flushed (10) Peripheral neuropathy Assessment/Plan: As per Hx. Gabapentin now stopped - Current Meds Current Meds: Current Medications Generic Name Dose Route Start Last Admin Trade Name Freq PRN Reason Stop Dose Admin Multivitamins 10 ml/ Thiamine 1,011.2 mls @ 100 mls/hr 12/20/19 09:00 12/20/19 09:00 HCl 100 mg/ Folic Acid 1 mg/ IV 100 mls/hr Sodium Chloride DAILY RAMAKRISHNA Administration Insulin Aspart 1 - 5 unit 12/18/19 17:00 12/20/19 11:50 Novolog SUBQ Not Given 0800,1200,1700,2100 [facility] Protocol Pantoprazole Sodium 40 mg 12/20/19 09:00 12/20/19 09:00 Protonix IV 40 mg BID RAMAKRISHNA Administration Sodium Chloride 10 ml 12/18/19 12:29 12/18/19 20:59 Normal Saline Flush 0.9% IVP 10 ml PRN PRN Administration NEEDED PER PROVIDER ORDERS Sodium Chloride 10 ml 12/18/19 17:00 12/20/19 10:24 Normal Saline Flush 0.9% IVP 10 ml 0100,0900,1700 RAMAKRISHNA Administration - Lab Result Fish Bone Diagrams: 12/20/19 05:20 12/20/19 05:20 - Additional Planning My Orders: My Active Orders 12/20/19 Clinical Swallow Evaluation [ST] Routine 12/20/19 08:03 Park Insertion [RC] QSHIFT 12/20/19 09:00 Multivitamin [Infuvite] 10 ml Thiamine Inj [Vitamin B-1 Inj] 100 mg Folic Acid Inj 1 mg Sodium Chloride 0.9% [Normal Saline 0.9%] 1,000 ml IV DAILY Pantoprazole [Protonix] 40 mg IV BID 12/20/19 11:39 Miscellaenous Nursing Order [RC] Q2H 12/20/19 12:53 CIWA - AR Score Card [RC] Routine Routine Neuro Check [RC] Routine Routine Vital Signs [RC] Q4HR LORazepam INJ [Ativan Inj (Vial)] 1 mg IVP Q2H PRN 12/20/19 14:00 FUROSEMIDE INJ 100mg VIAL [LASIX INJ 100mg VIAL] 100 mg IVP BIDDIURETIC Metoprolol Inj [Lopressor Inj] 2.5 mg IVP Q8HR 12/21/19 05:00 PT WITH INR [COAG] DAILYLAB 12/22/19 05:00 PT WITH INR [COAG] DAILYLAB 12/23/19 05:00 PT WITH INR [COAG] DAILYLAB Subjective - Subjective Nursing Reports: Sedated Objective Vital Signs: Vital Signs - 24 hr 12/19/19 12/20/19 12/20/19 16:00 00:06 05:01 Temperature 34.5 C L 34.3 C L 34.1 C L Heart Rate [ 65 61 64 Radial] Respiratory 16 20 20 Rate Blood Pressure 155/90 H 94/52 L [Right Brachial artery] O2 Saturation 96 98 96 12/20/19 08:00 Temperature 33.4 C L Heart Rate [ 61 Radial] Respiratory 19 Rate Blood Pressure 92/57 L [Right Brachial artery] O2 Saturation 97 Oxygen O2 Source Room air I&O (Last 24 Hrs): Intake and Output Totals x24h 12/18/19 12/19/19 12/20/19 23:59 23:59 23:59 Intake Total 1300 1526 763.66 Output Total 50 95 50 Balance 1250 1431 713.66 General: Other (Sedated and sleeping after got 1 dose of Lorazepam iv) HEENT: Mucous membr. moist/pink Neck: Other (Obese and has a smith, difficult to eval neck) Neuro: Other (sedated) Cardiovascular: Regular rate Respiratory: No respiratory distress, Other (Supine in bed, snoring and not tachypneic) Abdomen: Soft, Other (Distended, more tense than yesterday) Genitourinary: Other (Park cath) Extremities: Other (1+ edema legs) - Results Results: Laboratory Results WBC 14.9 x10^3/uL (4.8-10.8) H 12/20/19 05:20 RBC 3.22 10^6/uL (4.70-6.10) L 12/20/19 05:20 Hgb 11.4 g/dL (14.0-18.0) L 12/20/19 05:20 Hct 32.9 % (42.0-52.0) L 12/20/19 05:20 MCV 102.2 fL (80.0-94.0) H 12/20/19 05:20 MCH 35.4 pg (27.0-31.0) H 12/20/19 05:20 MCHC 34.7 g/dL (32.0-36.0) 12/20/19 05:20 RDW 16.2 % (12.0-15.0) H 12/20/19 05:20 Plt Count 182 10^3/uL (130-450) 12/20/19 05:20 MPV 11.9 fL (7.4-11.4) H 12/20/19 05:20 Neut # (Auto) 11.4 10^3/uL (1.5-6.6) H 12/20/19 05:20 Lymph # (Auto) 1.9 10^3/uL (1.5-3.5) 12/20/19 05:20 [place] # (Auto) 1.0 10^3/uL (0.0-1.0) 12/20/19 05:20 Eos # (Auto) 0.4 10^3/uL (0.0-0.7) 12/20/19 05:20 Baso # (Auto) 0.0 10^3/uL (0.0-0.1) 12/20/19 05:20 Absolute Nucleated RBC 0.00 x10^3/uL 12/20/19 05:20 Nucleated RBC % 0.0 /100WBC 12/20/19 05:20 PT 22.8 secs (9.9-12.6) H 12/20/19 05:20 INR 2.1 (0.8-1.2) H 12/20/19 05:20 APTT 40.8 secs (24.9-33.3) H 12/18/19 09:20 VBG pH 7.337 (7.31-7.41) 12/19/19 12:20 VBG pCO2 21.7 mmHg (41-51) L 12/19/19 12:20 VBG pO2 100.3 mmHg (25-47) H 12/19/19 12:20 VBG HCO3 11.4 mmol/L (23-28) L 12/19/19 12:20 VBG Total CO2 12.0 mmol/L (24-29) L 12/19/19 12:20 VBG O2 Saturation 97.1 % (60-80) H 12/19/19 12:20 VBG Base Excess -12.5 mmol/L (-2 - +2) L 12/19/19 12:20 Sodium 132 mmol/L (135-145) L 12/20/19 05:20 Potassium 5.4 mmol/L (3.5-5.0) H 12/20/19 05:20 Chloride 107 mmol/L (101-111) 12/20/19 05:20 Carbon Dioxide 11 mmol/L (21-32) L* 12/20/19 05:20 Anion Gap 14.0 (6-13) H 12/20/19 05:20 BUN 97 mg/dL (6-20) H* 12/20/19 05:20 Creatinine 7.9 mg/dL (0.6-1.2) H* 12/20/19 05:20 Estimated GFR (MDRD) 7 (>89) L 12/20/19 05:20 Glucose 150 mg/dL (70-100) H 12/20/19 05:20 Glycated Hemoglobin 6.5 % (4.6-6.2) H 12/19/19 04:35 Estim Average Glucose 140 (70-100) H 12/19/19 04:35 Lactic Acid 1.6 mmol/L (0.5-2.2) 12/18/19 09:20 Calcium 6.8 mg/dL (8.5-10.3) L 12/20/19 05:20 Magnesium 2.7 mg/dL (1.7-2.8) 12/18/19 09:20 Total Bilirubin 14.9 mg/dL (0.2-1.0) H 12/20/19 05:20 AST 153 IU/L (10-42) H 12/20/19 05:20 ALT 121 IU/L (10-60) H 12/20/19 05:20 Alkaline Phosphatase 163 IU/L (42-121) H 12/20/19 05:20 Ammonia 106.9 umol/L (7-35) H* 12/20/19 05:20 B-Natriuretic Peptide 344 pg/mL (5-100) H 12/18/19 09:20 Total Protein 6.0 g/dL (6.7-8.2) L 12/20/19 05:20 Albumin 1.6 g/dL (3.2-5.5) L 12/20/19 05:20 Globulin 4.4 g/dL (2.1-4.2) H 12/20/19 05:20 Albumin/Globulin Ratio 0.4 (1.0-2.2) L 12/20/19 05:20 Lipase 51 U/L (22-51) 12/18/19 09:20 TSH 17.79 uIU/mL (0.34-5.60) H 12/18/19 09:20 Urine Color DARK YELLOW 12/18/19 10:30 Urine Clarity SL. CLOUDY (CLEAR) 12/18/19 10:30 Urine pH 5.5 PH (5.0-7.5) 12/18/19 10:30 Ur Specific [place] 1.025 (1.002-1.030) 12/18/19 10:30 Urine Protein NEGATIVE mg/dL (NEGATIVE) 12/18/19 10:30 Urine Glucose (UA) NEGATIVE mg/dL (NEGATIVE) 12/18/19 10:30 Urine Ketones NEGATIVE mg/dL (NEGATIVE) 12/18/19 10:30 Urine Occult Blood NEGATIVE (NEGATIVE) 12/18/19 10:30 Urine Nitrite NEGATIVE (NEGATIVE) 12/18/19 10:30 Urine Bilirubin MODERATE (NEGATIVE) H 12/18/19 10:30 Urine Urobilinogen 0.2 (NORMAL) E.U./dL (NORMAL) 12/18/19 10:30 Ur Leukocyte Esterase TRACE (NEGATIVE) H 12/18/19 10:30 Urine RBC 0-5 /HPF (0-5) 12/18/19 10:30 Urine WBC 6-10 /HPF (0-3) H 12/18/19 10:30 Ur Squamous Epith Cells MANY Squamous (<= Few) H 12/18/19 10:30 Urine Bacteria Few /HPF (None Seen) 12/18/19 10:30 Ur Microscopic Review INDICATED 12/18/19 10:30 Urine Culture Comments NOT INDICATED 12/18/19 10:30 Ethyl Alcohol < 5.0 mg/dL 12/18/19 09:20
[2019-12-20] MEDS: LORazepam 2 MG/ML VIAL IVP PRN (13:42)
[2019-12-20] MEDS ORDERED: FUROSEMIDE 100 MG/10 ML VIAL IVP SCH (14:00)
[2019-12-20] MEDS: METOPROLOL 5 MG/5 ML VIAL IVP SCH ×2 (14:30→22:25)
[2019-12-20 18:37] LABS: CALCIUM 6.8 mg/dL (8.5-10.3)
[2019-12-20 18:40] LABS: CREATININE 8.6 mg/dL (0.6-1.2)
[2019-12-21] MEDS: SODIUM CHLORIDE FLUSH 0.9% 10 ML SYRINGE IVP SCH ×3 (00:16→16:43)
[2019-12-21] MEDS: INSULIN REGULAR HUMAN 300 UNIT/3 ML VIAL SUBQ SCH ×3 (00:16→12:01)
[2019-12-21 05:06] LABS: BASOPHILS % (AUTO) 0.1 %; EOSINOPHILS # (AUTO) 0.4 10^3/uL (0.0-0.7); EOSINOPHILS % (AUTO) 2.6 %; HGB - HEMOGLOBIN 11.1 g/dL (14.0-18.0); LYMPHOCYTES # (AUTO) 1.7 10^3/uL (1.5-3.5); LYMPHOCYTES % (AUTO) 11.5 %; MEAN CORPUSCULAR HEMOGLOBIN 34.3 pg (27.0-31.0); MEAN CORPUSCULAR HGB CONC 34.4 g/dL (32.0-36.0); MEAN CORPUSCULAR VOLUME 99.7 fL (80.0-94.0); MEAN PLATELET VOLUME 11.5 fL (7.4-11.4); MONOCYTES # (AUTO) 0.9 10^3/uL (0.0-1.0); MONOCYTES % (AUTO) 5.8 %; NEUTROPHILS # (AUTO) 12.1 10^3/uL (1.5-6.6); NEUTROPHILS % (AUTO) 79.3 %; PLT - PLATELET COUNT 170 10^3/uL (130-450); RED BLOOD COUNT 3.24 10^6/uL (4.70-6.10); RED CELL DISTRIBUTION WIDTH 16.4 % (12.0-15.0); WHITE BLOOD COUNT 15.2 x10^3/uL (4.8-10.8)
[2019-12-21 05:13] LABS: INR 2.4 (0.8-1.2); PT - PROTHROMBIN TIME 26.1 secs (9.9-12.6)
[2019-12-21 05:28] LABS: ALBUMIN 1.7 g/dL (3.2-5.5); ALBUMIN/GLOBULIN RATIO 0.4 (1.0-2.2); TOTAL PROTEIN 5.7 g/dL (6.7-8.2)
[2019-12-21 05:30] LABS: CREATININE 8.9 mg/dL (0.6-1.2)
[2019-12-21 05:31] LABS: CALCIUM 6.5 mg/dL (8.5-10.3)
[2019-12-21] MEDS: METOPROLOL 5 MG/5 ML VIAL IVP SCH ×2 (06:06→13:37)
[2019-12-21] MEDS ORDERED: ALBUMIN 25% 12.5 GM/50 ML VIAL IV STA (06:24)
[2019-12-21] MEDS: LEVOTHYROXINE 100 MCG VIAL IVP SCH ×2 (06:32→08:28)
[2019-12-21] MEDS ORDERED: FUROSEMIDE 40 MG/4 ML VIAL IVP SCH ×2 (07:00→08:00)
[2019-12-21] MEDS ORDERED: LEVOTHYROXINE 100 MCG VIAL IVP SCH ×2 (07:00)
[2019-12-21] MEDS: PANTOPRAZOLE 40 MG VIAL IV SCH (08:29)
[2019-12-21] MEDS: MULTIVITAMIN 10 ML, THIAMINE INJ 100 MG, FOLIC ACID INJ 1 MG in SODIUM CHLORIDE 0.9% 1,... IV SCH (09:41)
[2019-12-21] MEDS: SODIUM CHLORIDE FLUSH 0.9% 10 ML SYRINGE IVP PRN (09:57)
--- NOTE | 2019-12-21 10:01 | PROVIDER PROGRESS NOTE ---
Subjective - Prog Note Date Prog Note Date: 12/21/19 Prog Note Time: 13:49 - Subjective Subjective: Yesterday the family felt there was a little bit of "hope" because he was trying to talk to them. Although what he said was not making any sense, he was ac tually trying to participate in conversation. Today he is just not really responsive enough for them. While his ammonia level is decreasing, his BUN and creatinine are not better. Creatinine is up again today at 8.9. Palliative care consultation done with and daughter. I was also present. After 30 minutes of discussing his overall prognosis, lack of significant progress, and that a trial of therapy was not working, his family went to have their own conversation by themselves. After consideration, they are heartbroken. But they would like to transition him to comfort measures only. "He would not want to be living his life this way. Even if he got better, he would still be significantly disabled from his liver failure. And to what end?" Current Medications - Current Medications Current Medications: Active Medications Furosemide (Lasix Inj 40 Mg Vial) 80 mg IVP 0800 [facility] Last Admin: 12/21/19 09:57 Dose: 80 mg Multivitamins 10 ml/ Thiamine HCl 100 mg/ Folic Acid 1 mg/Sodium Chloride 1,011.2 mls @ 100 mls/hr IV DAILY [facility] Last Admin: 12/21/19 09:41 Dose: 100 mls/hr Insulin Human Regular (Humulin R) 1 - 5 unit SUBQ Q6HR [facility]; Protocol Last Admin: 12/21/19 12:01 Dose: 1 unit Levothyroxine Sodium (Synthroid Inj) 100 mcg IVP Q3D [facility] Lorazepam (Ativan Inj (Vial)) 1 mg IVP Q2H PRN PRN Reason: Anxiety Last Admin: 12/21/19 11:01 Dose: 1 mg Metoprolol Tartrate (Lopressor Inj) 2.5 mg IVP Q8HR [facility] Last Admin: 12/21/19 13:37 Dose: Not Given Ondansetron HCl (Zofran Inj) 4 mg IVP Q6HR PRN PRN Reason: Nausea / Vomiting Pantoprazole Sodium (Protonix) 40 mg IV BID [facility] Last Admin: 12/21/19 08:29 Dose: 40 mg Sodium Chloride (Normal Saline Flush 0.9%) 10 ml IVP PRN PRN PRN Reason: NEEDED PER PROVIDER ORDERS Last Admin: 12/21/19 09:57 Dose: 10 ml Sodium Chloride (Normal Saline Flush 0.9%) 10 ml IVP 0100,0900,1700 [facility] Last Admin: 12/21/19 08:28 Dose: 10 ml Furosemide 20 mg PO DAILY 12/18/19 Insulin Glargine [Lantus Solostar] 12 units SUBQ BID 12/18/19 Pregabalin 50 mg PO TID 12/18/19 Spironolactone 50 mg PO DAILY 12/18/19 Objective - Vital Signs/Intake & Output Reviewed Vital Signs: Yes Vital Signs: Vital Signs x48h Temp Pulse Resp BP BP Pulse Ox 12/21/19 08:32 34.3 C L 63 22 81/42 L 92 12/21/19 06:06 94/42 L 12/21/19 05:00 34.8 C L 63 20 101/46 L 98 Intake & Output: Intake & Output 12/18/19 12/19/19 12/20/19 12/21/19 23:59 23:59 23:59 23:59 Intake Total 1300 1526 1774.860 50 Output Total 50 95 370 Balance 1250 1431 1404.860 50 - Objective General Appearance: positive: Lethargic, Other (tries to get out of bed with leg thrown over rail, reaching with right hand for bedding, IV, etc. but he is not able to communicate with words, can't focus to answer yes/no) Eyes Bilateral: positive: PERRL Eyes: OU Scleral icterus Neck: positive: No JVD. negative: Stiff neck Respiratory: positive: Chest non-tender, No respiratory distress. negative: Wheezes, Rales, Rhonchi Cardiovascular: positive: Regular rate & rhythm, Other (BP dropped from 100s systolic to 80s systolic.). negative: Gallop/S4, Friction rub Abdomen: positive: Abnml bowel sounds (hypoactive), Other (distension w fluid). negative: Guarding, Rebound Skin: positive: Warm, Dry, Other (jaundiced) Extremities: positive: Non-tender, Pedal edema Neurologic/Psychiatric: positive: Motor nml, Disoriented to person, Disoriented to place, Disoriented to time, Weakness - Lab Results Fish Bones: 12/21/19 04:57 12/21/19 04:57 Other Labs: Lab Results x24hrs 12/21/19 12/21/19 12/21/19 Range/Units 04:57 04:57 04:57 WBC (4.8-10.8) x10^3/uL RBC (4.70-6.10) 10^6/uL Hgb (14.0-18.0) g/dL Hct (42.0-52.0) % MCV (80.0-94.0) fL MCH (27.0-31.0) pg MCHC (32.0-36.0) g/dL RDW (12.0-15.0) % Plt Count (130-450) 10^3/uL MPV (7.4-11.4) fL Neut # (Auto) (1.5-6.6) 10^3/uL Lymph # (Auto) (1.5-3.5) 10^3/uL [place] # (Auto) (0.0-1.0) 10^3/uL Eos # (Auto) (0.0-0.7) 10^3/uL Baso # (Auto) (0.0-0.1) 10^3/uL Absolute Nucleated RBC x10^3/uL Nucleated RBC % /100WBC PT 26.1 H (9.9-12.6) secs INR 2.4 H (0.8-1.2) Sodium 137 (135-145) mmol/L Potassium 4.9 (3.5-5.0) mmol/L Chloride 111 (101-111) mmol/L Carbon Dioxide 11 L* (21-32) mmol/L Anion Gap 15.0 H (6-13) BUN 106 H* (6-20) mg/dL Creatinine 8.9 H* (0.6-1.2) mg/dL Estimated GFR (MDRD) 6 L (>89) Glucose 145 H (70-100) mg/dL Calcium 6.5 L* (8.5-10.3) mg/dL Total Bilirubin 16.0 H (0.2-1.0) mg/dL AST 130 H (10-42) IU/L ALT 121 H (10-60) IU/L Alkaline Phosphatase 185 H (42-121) IU/L Ammonia 109.1 H* (7-35) umol/L Total Protein 5.7 L (6.7-8.2) g/dL Albumin 1.7 L (3.2-5.5) g/dL Globulin 4.0 (2.1-4.2) g/dL Albumin/Globulin Ratio 0.4 L (1.0-2.2) 12/21/19 12/20/19 Range/Units 04:57 18:00 WBC 15.2 H (4.8-10.8) x10^3/uL RBC 3.24 L (4.70-6.10) 10^6/uL Hgb 11.1 L (14.0-18.0) g/dL Hct 32.3 L (42.0-52.0) % MCV 99.7 H (80.0-94.0) fL MCH 34.3 H (27.0-31.0) pg MCHC 34.4 (32.0-36.0) g/dL RDW 16.4 H (12.0-15.0) % Plt Count 170 (130-450) 10^3/uL MPV 11.5 H (7.4-11.4) fL Neut # (Auto) 12.1 H (1.5-6.6) 10^3/uL Lymph # (Auto) 1.7 (1.5-3.5) 10^3/uL [place] # (Auto) 0.9 (0.0-1.0) 10^3/uL Eos # (Auto) 0.4 (0.0-0.7) 10^3/uL Baso # (Auto) 0.0 (0.0-0.1) 10^3/uL Absolute Nucleated RBC 0.00 x10^3/uL Nucleated RBC % 0.0 /100WBC PT (9.9-12.6) secs INR (0.8-1.2) Sodium 136 (135-145) mmol/L Potassium 4.9 (3.5-5.0) mmol/L Chloride 110 (101-111) mmol/L Carbon Dioxide 11 L* (21-32) mmol/L Anion Gap 15.0 H (6-13) BUN 107 H* (6-20) mg/dL Creatinine 8.6 H* (0.6-1.2) mg/dL Estimated GFR (MDRD) 6 L (>89) Glucose 144 H (70-100) mg/dL Calcium 6.8 L (8.5-10.3) mg/dL Total Bilirubin (0.2-1.0) mg/dL AST (10-42) IU/L ALT (10-60) IU/L Alkaline Phosphatase (42-121) IU/L Ammonia (7-35) umol/L Total Protein (6.7-8.2) g/dL Albumin (3.2-5.5) g/dL Globulin (2.1-4.2) g/dL Albumin/Globulin Ratio (1.0-2.2) ABX Reporting Has patient been on IV antibiotics over the past 48 hours?: No Assessment/Plan - Problem List (1) Hepatic encephalopathy Impression: He was obtunded 3/30 am and not responding and not able to swallow. Then he became agitated tried to climb OOB and was focused on his at bedside, tried to talk to her." Palliative care has been very instrumental in setting the stage for this gentleman who has a high mortality rate. Even though we have given him a trial of treatment he is not really responded. Minimally responsive at times. 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 With his last visit, his discharge creatinine was 0.7. He was admitted here at 6.6. It is continued to climb and his creatinine is 8.9. Ammonia level discharge of 203 came down 206 yesterday. Today's 109. Albumin is 1.7. Total protein on admission was 6.7 and is 5.7. This is in spite of an attempt at nutrition. The patient was clear that he did not want hemodialysis. He really does not like coming to hospitals or seeing doctors. As such with that in mind, and his poor prognosis, his family has opted to transition him to comfort measures. Those orders will be written. (3) Hyperkalemia resolved Assessment/Plan: after lactulose, etc. (4) Uncontrolled type 2 diabetes mellitus with insulin therapy Assessment/Plan: Will stop sliding scale insulin to cover POC glucose checks. (5) Hypothyroidism Assessment/Plan: was a new diagnosis and we altered between oral or IV. Had just changed to IV every 3 days this am. But will stop now. (6) Urinary retention with incomplete bladder emptying Assessment/Plan: He had a known urethral stricture and did not want straight cath on the last hospitalization. He has a Park currently, it can be flushed Will keep in place.
[2019-12-21] MEDS: LORazepam 2 MG/ML VIAL IVP PRN (11:01)
[2019-12-21 11:51] VITALS: BP 83/46
[2019-12-21] MEDS ORDERED: MINERAL OIL/PETROLAT OPHTH OINT EACHEYE PRN (14:15)
[2019-12-21] MEDS ORDERED: ACETAMINOPHEN 650 MG SUPP PR PRN (14:15)
[2019-12-21] MEDS: LORazepam 2 MG/ML VIAL IVP SCH ×2 (16:43→21:44)
--- NOTE | 2019-12-21 16:44 | CONSULTATION NOTE ---
Palliative Care Follow Up - Referral Referring Provider: Yun Elmore Time of Visit: [id number]; [phone] Referral setting: Hospitalized patient Referral Reason: End Stage Liver Failure/Goals of care - Information Sources Records reviewed: RN notes reviewed, Previous records reviewed History/Review of Systems obtained from: Caregiver (clinical care team) Exam limitations: Clinical condition (patient unable to respond) - History of Present Illness Update Brief HPI Update: Please see HPI 12/19. This is an unfortunate 64-year-old gentleman his labs continue to worsen, he has not had any meaningful recovery unfortunately. On exam he is quite agitated, unable to focus, or answer any questions. Contacted the nurse for some lorazepam, as he did need intervention. He is breathing heavily, with big size. He does have a large abdomen, tight/taut with ascites. His lower extremity edema has reabsorb somewhat. His skin is quite dry. He continues to have blood-tinged urine and diminished output. Goal had been to trial interventions for another 24 hours, family meeting set today with hospitalist Dr. Tello. Social History - Living Situation Living arrangement: At home Living Situation: With spouse/s.o. Support System: Their daughter is home from school given the coronavirus outbreak. She is appropriately tearful, and participating in family meeting. is quite overwhelmed, and exhausted. Continues to struggle appropriately with his fairly quick demise. Medications/Allergies - Medications Active Medication List: Active Medications Acetaminophen (Tylenol) 650 mg [place] Q4H PRN PRN Reason: Fever >101 Atropine Sulfate (Isopto Atropine 1% Ophth Drops) 1 - 4 drops SL Q2H PRN PRN Reason: Excessive secretions Levothyroxine Sodium (Synthroid Inj) 100 mcg IVP Q3D [facility] Lorazepam (Ativan Inj (Vial)) 0.5 mg IVP Q6H [facility] Morphine Sulfate (Morphine (Carpuject)) 2 mg IVP Q2HR PRN PRN Reason: Pain or Shortness of air Multi-Ingred Cream/Lotion/Oil/Oint (Lubrifresh Pm Ophth Oint) 1 applic EACHEYE QPM PRN PRN Reason: Dry Eye Ondansetron HCl (Zofran Inj) 4 mg IVP Q6HR PRN PRN Reason: Nausea / Vomiting Sodium Chloride (Normal Saline Flush 0.9%) 10 ml IVP PRN PRN PRN Reason: NEEDED PER PROVIDER ORDERS Last Admin: 12/21/19 09:57 Dose: 10 ml Sodium Chloride (Normal Saline Flush 0.9%) 10 ml IVP 0100,0900,1700 [facility] Last Admin: 12/21/19 08:28 Dose: 10 ml Furosemide 20 mg PO DAILY 12/18/19 Insulin Glargine [Lantus Solostar] 12 units SUBQ BID 12/18/19 Pregabalin 50 mg PO TID 12/18/19 Spironolactone 50 mg PO DAILY 12/18/19 - Allergies Allergies/Adverse Reactions: Allergies Allergy/AdvReac Type Severity Reaction Status Date / Time No Known Drug Allergies Allergy Verified 12/20/18 21:13 Review of Systems - Ears, Nose & Throat Ears, Nose & Throat: reports: Dry mouth - Gastrointestinal Gastrointestinal: reports: Other (NPO) - Genitourinary Genitourinary: reports: Other (shah catheter still with poor output/blood clots) - Musculoskeletal Musculoskeletal: reports: Other (bedbound) - Integumentary Integumentary: reports: Dryness - Neurological Neurological: reports: General weakness - Psychiatric Psychiatric: reports: Aggitation - Endocrine Endocrine: reports: Diabetes type 2, Hypothyroidism - All Other Systems All Other Systems: reports: Other (lilmited ROS) Physical Exam - Vital Signs Vital Signs: Vital Signs x48h Pulse Resp BP Pulse Ox 12/21/19 11:51 62 20 83/46 L 96 - Physical Exam General Appearance: positive: Mild distress Eyes Bilateral: positive: Other (scleral icterus; dry and crusted; eyes open) ENT: positive: Dry mucous membranes Neck: positive: Trachea midline Cardiovascular: positive: Regular rate & rhythm Respiratory: negative: No respiratory distress (demonstrates some respiratory effort) Abdomen: positive: Taut Skin: positive: Jaundice, Dryness, Bruising Extremities: positive: Pedal edema (decreased from yesterday) Neurologic/Psychiatric: positive: Other (nonresponsive to verbals stimuli) Palliative Care - POLST Patient has POLST: Yes POLST Status: DNR (Family meeting focused on transition to comfort care recommendations) Pain: Comment (patient with restlessness; at baseline had fairly moderate pain; lower abdominal area; right thigh; neuropathy in feet; may need more aggressive pain evaluation for cues) Performance Status: Patient bedbound, still needs 3-4 members of care team to be able to move, reposition, or change depends. - Palliative Care Discussion: Family meeting with myself, Dr. Jazmin Tello, Kerry and daughter Rosa. Presentation of information regarding patient's continued decline, most likely not expected to improve, and concern for extended suffering. Addressed multiple concerns, including discontinuing fluids, patient's comfort status, and pending possible placement. Patient though is changing fairly rapidly, reviewed again with had done due diligence trying to find increased resources to bring him home, would not be able to manage him given his large size, underlying illness, and agitation. Acknowledged difficulty of this conversation, psychosocial support offered, at end of meeting daughter and wanted time to reflect on information provided in process accordingly. They will present final decision about transitioning to comfort measures to hospitalist. This was reviewed as discontinuing the IV, focusing on comfort medications, and psychosocial support for both patient and family. Results - Lab Results Lab results reviewed: Yes Fish Bones: 12/21/19 04:57 12/21/19 04:57 Lab and Imaging Results: Lab Results x24hrs 12/21/19 12/21/19 12/21/19 Range/Units 04:57 04:57 04:57 WBC (4.8-10.8) x10^3/uL RBC (4.70-6.10) 10^6/uL Hgb (14.0-18.0) g/dL Hct (42.0-52.0) % MCV (80.0-94.0) fL MCH (27.0-31.0) pg MCHC (32.0-36.0) g/dL RDW (12.0-15.0) % Plt Count (130-450) 10^3/uL MPV (7.4-11.4) fL Neut # (Auto) (1.5-6.6) 10^3/uL Lymph # (Auto) (1.5-3.5) 10^3/uL [place] # (Auto) (0.0-1.0) 10^3/uL Eos # (Auto) (0.0-0.7) 10^3/uL Baso # (Auto) (0.0-0.1) 10^3/uL Absolute Nucleated RBC x10^3/uL Nucleated RBC % /100WBC PT 26.1 H (9.9-12.6) secs INR 2.4 H (0.8-1.2) Sodium 137 (135-145) mmol/L Potassium 4.9 (3.5-5.0) mmol/L Chloride 111 (101-111) mmol/L Carbon Dioxide 11 L* (21-32) mmol/L Anion Gap 15.0 H (6-13) BUN 106 H* (6-20) mg/dL Creatinine 8.9 H* (0.6-1.2) mg/dL Estimated GFR (MDRD) 6 L (>89) Glucose 145 H (70-100) mg/dL Calcium 6.5 L* (8.5-10.3) mg/dL Total Bilirubin 16.0 H (0.2-1.0) mg/dL AST 130 H (10-42) IU/L ALT 121 H (10-60) IU/L Alkaline Phosphatase 185 H (42-121) IU/L Ammonia 109.1 H* (7-35) umol/L Total Protein 5.7 L (6.7-8.2) g/dL Albumin 1.7 L (3.2-5.5) g/dL Globulin 4.0 (2.1-4.2) g/dL Albumin/Globulin Ratio 0.4 L (1.0-2.2) 12/21/19 12/20/19 Range/Units 04:57 18:00 WBC 15.2 H (4.8-10.8) x10^3/uL RBC 3.24 L (4.70-6.10) 10^6/uL Hgb 11.1 L (14.0-18.0) g/dL Hct 32.3 L (42.0-52.0) % MCV 99.7 H (80.0-94.0) fL MCH 34.3 H (27.0-31.0) pg MCHC 34.4 (32.0-36.0) g/dL RDW 16.4 H (12.0-15.0) % Plt Count 170 (130-450) 10^3/uL MPV 11.5 H (7.4-11.4) fL Neut # (Auto) 12.1 H (1.5-6.6) 10^3/uL Lymph # (Auto) 1.7 (1.5-3.5) 10^3/uL [place] # (Auto) 0.9 (0.0-1.0) 10^3/uL Eos # (Auto) 0.4 (0.0-0.7) 10^3/uL Baso # (Auto) 0.0 (0.0-0.1) 10^3/uL Absolute Nucleated RBC 0.00 x10^3/uL Nucleated RBC % 0.0 /100WBC PT (9.9-12.6) secs INR (0.8-1.2) Sodium 136 (135-145) mmol/L Potassium 4.9 (3.5-5.0) mmol/L Chloride 110 (101-111) mmol/L Carbon Dioxide 11 L* (21-32) mmol/L Anion Gap 15.0 H (6-13) BUN 107 H* (6-20) mg/dL Creatinine 8.6 H* (0.6-1.2) mg/dL Estimated GFR (MDRD) 6 L (>89) Glucose 144 H (70-100) mg/dL Calcium 6.8 L (8.5-10.3) mg/dL Total Bilirubin (0.2-1.0) mg/dL AST (10-42) IU/L ALT (10-60) IU/L Alkaline Phosphatase (42-121) IU/L Ammonia (7-35) umol/L Total Protein (6.7-8.2) g/dL Albumin (3.2-5.5) g/dL Globulin (2.1-4.2) g/dL Albumin/Globulin Ratio (1.0-2.2) Impression and Recommendations - Palliative Care Impression: This is an unfortunate 64-year-old gentleman who continues to deteriorate related to his alcohol hepatitis, worsening metabolic encephalopathy, worsening kidney failure, and has not regained or improved in his status at all. P alliative care facilitating family conference to define goals of care. Recommendations/Counseling Done: 1. Agitation. Patient presents as a result of his metabolic encephalopathy, and possible increased discomfort agitation. This is demonstrated in restlessness, furloughed brow, and trying to get out of bed. Would recommend scheduled Lorazepam 0.5 mg every 6 hours, and daughter's goal are for patient to be comfortable and not distressed. If patient's family chooses to transition on to comfort care, hospitalist will initiate comfort care orders. 2. Advanced care planning. Family meeting to define goals of care, recommendation to transition to comfort measures. Discussion at length regarding implications given patient is not safe to return home, would not be able get his needs met, as well as limited options for transfer. Acknowledged the complexity of end-of-life planning, CLASSIFICATION COUNSELOR awaiting final word from [place]. Patient does appear to have quick decline, and looking at most likely hours to days. Family to follow-up with hospitalist, regarding final decision, with most likely outcome to transition to comfort measures and initiate comfort orders. Time Spent: 60 minutes with greater than 50% of this done in counseling regarding goals of care, continuum of care, anticipatory guidance, and transition planning. Assignment Clerk rdination of care with bottling room worker and hospitalist
[2019-12-21] MEDS: MIN OIL/DIMETHICON/COCONUT OIL 92 GM TUBE TOP SCH (21:43)
[2019-12-22] MEDS: SODIUM CHLORIDE FLUSH 0.9% 10 ML SYRINGE IVP SCH ×3 (03:14→18:38)
[2019-12-22] MEDS: LORazepam 2 MG/ML VIAL IVP SCH ×3 (03:14→18:03)
[2019-12-22] MEDS: MORPHINE 2 MG/ML CARPUJECT IVP PRN ×3 (07:35→16:13)
[2019-12-22] MEDS: SODIUM CHLORIDE FLUSH 0.9% 10 ML SYRINGE IVP PRN ×3 (07:35→13:56)
[2019-12-22] MEDS: MIN OIL/DIMETHICON/COCONUT OIL 92 GM TUBE TOP SCH (08:49)
--- NOTE | 2019-12-22 10:11 | PROVIDER PROGRESS NOTE ---
Subjective - Prog Note Date Prog Note Date: 12/22/19 Prog Note Time: 10:12 - Subjective Subjective: he is sleeping. minimally responds to voice. occ restless and needs ativan. Current Medications - Current Medications Current Medications: Active Medications Acetaminophen (Tylenol) 650 mg [place] Q4H PRN PRN Reason: Fever >101 Atropine Sulfate (Isopto Atropine 1% Ophth Drops) 1 - 4 drops SL Q2H PRN PRN Reason: Excessive secretions Levothyroxine Sodium (Synthroid Inj) 100 mcg IVP Q3D [facility] Lorazepam (Ativan Inj (Vial)) 0.5 mg IVP Q6H [facility] Last Admin: 12/22/19 08:47 Dose: 0.5 mg Mineral Oil (Cavilon) 1 applic TOP BID [facility] Last Admin: 12/22/19 08:49 Dose: 1 applic Morphine Sulfate (Morphine (Carpuject)) 2 mg IVP Q2HR PRN PRN Reason: Pain or Shortness of air Last Admin: 12/22/19 07:35 Dose: 2 mg Multi-Ingred Cream/Lotion/Oil/Oint (Lubrifresh Pm Ophth Oint) 1 applic EACHEYE QPM PRN PRN Reason: Dry Eye Ondansetron HCl (Zofran Inj) 4 mg IVP Q6HR PRN PRN Reason: Nausea / Vomiting Sodium Chloride (Normal Saline Flush 0.9%) 10 ml IVP PRN PRN PRN Reason: NEEDED PER PROVIDER ORDERS Last Admin: 12/22/19 08:47 Dose: 10 ml Sodium Chloride (Normal Saline Flush 0.9%) 10 ml IVP 0100,0900,1700 [facility] Last Admin: 12/22/19 08:49 Dose: Not Given Furosemide 20 mg PO DAILY 12/18/19 Insulin Glargine [Lantus Solostar] 12 units SUBQ BID 12/18/19 Pregabalin 50 mg PO TID 12/18/19 Spironolactone 50 mg PO DAILY 12/18/19 Objective - Vital Signs/Intake & Output Reviewed Vital Signs: No Intake & Output: Intake & Output 12/19/19 12/20/19 12/21/19 12/22/19 23:59 23:59 23:59 23:59 Intake Total 1526 1774.860 661.2 Output Total 95 370 285 50 Balance 1431 1404.860 376.2 -50 - Objective General Appearance: positive: Lethargic Eyes Bilateral: positive: PERRL Eyes: OU Scleral icterus Respiratory: positive: Chest non-tender, No respiratory distress, Other (slow sonorous respiration) Cardiovascular: positive: Regular rate & rhythm. negative: Gallop/S4, Friction rub Abdomen: positive: Other (distended, hypoactive BS, no grimace of pain w palpation) Skin: positive: Warm Extremities: positive: Pedal edema Neurologic/Psychiatric: positive: Disoriented to person, Disoriented to place, Disoriented to time, Weakness, Slurred/abnml speech - Lab Results Fish Bones: 12/21/19 04:57 12/21/19 04:57 Assessment/Plan - Problem List (1) Hepatorenal failure Impression: Due to alcoholic liver disease with varices, acites, and severe encephalopathy . He opted not to do TIPS with GI because he is a [employer]. When admitted here declined transfer for dialysis. In spite of lactulose, diuresis, banana bag, he is not really improving. With his last visit, his discharge c reatinine was 0.7. He was admitted here at 6.6. It is continued to climb and his creatinine was 8.9 12/20. Ammonia level discharge of 203 came down 106 12/19 and was 109 12/20. Albumin was 1.7. Total protein on admission was 6.7 and is 5.7. This is in spite of an attempt at nutrition. The patient was clear that he did not want hemodialysis. He really does not like coming to hospitals or seeing doctors. As such with that in mind, and his poor prognosis, his family has opted to transition him to comfort measures by afternoon 12/20. Those orders will be written. He is on fixed dose of ativan per his 's wishes. Yesterday his BP was 80s systolic. No more labs, vitals, noncomfort meds being done. Expect imminent .
[2019-12-22] MEDS: ATROPINE 1% OPHTH DROPS 2 ML SL PRN ×2 (13:55→18:37)
--- NOTE | 2019-12-22 19:29 | Discharge Plan ---
Discharge Plan Problem Reviewed?: Yes Disposition: 20 Condition: Stable No Smoking: If you smoke, Please STOP! Call for help. Follow-up with: Jon Asher MD [Primary Care Provider] -
--- NOTE | 2019-12-22 19:32 | DISCHARGE SUMMARY ---
Discharge Summary Admit Date: 12/18/19 Discharge Date: 12/22/19 Discharging Provider: Elias aCstro Primary Care Provider: Jon Asher Condition at Discharge: Stable Discharge Disposition: 20 - DIAGNOSES Admission Diagnoses: Hepatic encephalopathy Hepatorenal syndrome Acute kidney injury on chronic kidney disease Hypothermia Hypothyroidism Alcohol abuse History of esophageal varices Liver cirrhosis with ascites Portal hypertension Controlled diabetes mellitus type 2 on insulin Hyponatremia Urinary retention Urethral stricture Insomnia Peripheral neuropathy on gabapentin Discharge Diagnoses with Status of Each Condition: Hepatic encephalopathy Hepatorenal syndrome Acute liver failure Acute renal failure Alcoholism Type 2 diabetes mellitus on insulin Hypothyroidism Urinary retention - HPI History of Present Illness: H&P per Dr. Acosta on 12/18/19: This is a 64-year-old white male with a history of alcohol abuse for 30 years. He was just admitted here 2 weeks ago when he had weakness and confusion and was diagnosed with alcoholism, acute liver failure, his bilirubin was 12-15 and he was confused and jaundiced. He also developed hyperglycemia and was diagnosed as a diabetic, he had renal insufficiency and was sent home on new insulin, nadolol for findings of esophageal varices and portal hypertension and there were arrangements made to be seen by a dip lube operator. His reports that he did go to see the dip lube operator at [place] and there is no diuretic started or any other changes made. The patient did stop his alcohol intake. He presents today with worsening confusion and "stumble" and he states that he fell and hit his head. He has been found to have an ammonia level of 139, bilirubin of 15, creatinine of 6.[address] scan of the head did not show any hemorrhage or evidence of infarction. He is being admitted for hepatic encephalopathy and hepatorenal syndrome with JENNI. - CONSULTS | PROCEDURES Consultations: Palliative Care, Social Work - HOSPITAL COURSE Hospital Course: He was admitted for hepatic encephalopathy and acute kidney injury secondary to hepatorenal syndrome. He was treated with IV saline and gentle diuresis. He was also administered albumin. He was given lactulose for elevated ammonia. Despite treatment, his renal function continued to decline as his creatinine continues to rise as well as his BUN. His mental status also continued to de boyle. He was unable to take anything by mouth given his mental status and there was concern about placing an NG tube for nutrition and administration of medication given his history of esophageal varices and his coagulopathy from the liver failure. He was found to have new hypothyroidism and was started on Synthroid during this hospitalization. A Park catheter was also placed despite his history of urethral stricture given his renal failure and poor mentation. The patient has did in the past that he did not want hemodialysis and therefore we attempted medical management of his acute kidney injury. Unfortunately did not improve despite medical treatment. Palliative care was consulted. After discussion with the patient's and daughter, a decision was made to pursue comfort measures. All medications were discontinued and he was started on morphine IV as needed as well as standing Lorazepam 0.5 mg every 6 hours. This was initiated on December 20 in the afternoon. The patient on December 21 at 19:12. Dr. Tello notified the patient's immediately after. - ALLERGIES Allergies/Adverse Reactions: Allergies Allergy/AdvReac Type Severity Reaction Status Date / Time No Known Drug Allergies Allergy Verified 12/20/18 21:13 - MEDICATIONS Home Medications: Ambulatory Orders Medication Instructions Recorded Confirmed Folic Acid 1 mg PO DAILY tablet 11/28/19 12/18/19 Insulin Aspart [NovoLOG] 8 unit SUBQ TIDWM #3 pen 11/28/19 12/18/19 Nadolol 40 mg PO DAILY #30 tablet 11/28/19 12/18/19 Thiamine [Vitamin B-1] 100 mg PO DAILY #30 tablet 11/28/19 12/18/19 Furosemide 20 mg PO DAILY 12/18/19 12/18/19 Insulin Glargine [Lantus Solostar] 12 units SUBQ BID 12/18/19 12/18/19 Pregabalin 50 mg PO TID 12/18/19 12/18/19 Spironolactone 50 mg PO DAILY 12/18/19 12/18/19 - PHYSICAL EXAM AT DISCHARGE Eyes Bilateral: positive: Other (Scleral icterus. Pupils fixed and dilated.). negative: No scleral icterus Respiratory: positive: Other (No spontaneous breaths noted.) Cardiovascular: positive: Other (No heart sounds present.) Peripheral Pulses: positive: 0 Skin: positive: Other (Jaundiced.) - LABS Result Diagrams: 12/21/19 04:57 12/21/19 04:57
[2019-12-24] MEDS ORDERED: LEVOTHYROXINE 100 MCG VIAL IVP SCH (10:00)
== END 2019-12-22 19:12 | disposition expired | DRG 432 ==
LOC: EDUNIT# → ED 09:08 → MS3 12:29
PROVIDERS: ADMIT Internal Medicine; ATTEND Internal Medicine
DX: K70.40 Alcoholic hepatic failure without coma (principal); K76.7 Hepatorenal syndrome; N17.9 Acute kidney failure, unspecified; K76.6 Portal hypertension; I85.10 Secondary esophageal varices without bleeding; E87.1 Hypo-osmolality and hyponatremia; D68.4 Acquired coagulation factor deficiency; K70.31 Alcoholic cirrhosis of liver with ascites; F10.20 Alcohol dependence, uncomplicated; E11.22 Type 2 diabetes mellitus with diabetic chronic kidney disease; N18.9 Chronic kidney disease, unspecified; E11.42 Type 2 diabetes mellitus with diabetic polyneuropathy; E03.9 Hypothyroidism, unspecified; R33.9 Retention of urine, unspecified; G47.00 Insomnia, unspecified; N35.919 Unspecified urethral stricture, male, unspecified site; R15.9 Full incontinence of feces; R34 Anuria and oliguria; E87.5 Hyperkalemia; Z66 Do not resuscitate; Z51.5 Encounter for palliative care; Z79.4 Long term (current) use of insulin
CPT/HCPCS: 36415; 70450; 71045; 80048; 80053; 80320; 81001; 82140; 82803; 83036; 83605; 83690; 83735; 83880; 84443; 85025; 85610; 85730; 93005; 96361; 96374; 96376; 99233; 99285; A6250; A9270; J1170; J1815; J2060; J3411; J8499; P9047; 81003; 87086